=== PATIENT | male | born 1960 | race American Indian/Alaskan Native ===

== ENCOUNTER 2017-01-27 12:52 | Outpatient (CLI) | payer MEDICAID ==
[2017-01-27 14:03] LABS: Hematocrit 42.1 % (35.5-45.6); Hemoglobin 13.2 gm/dl (11.8-15.2); Mean Corpuscular HGB Conc 31 % (32-34); Mean Corpuscular Volume 72 fl (84-94); Platelet Count 232 K/mm3 (140-440); Red Blood Count 5.85 M/mm3 (3.65-5.03); Red Cell Distribution Width 15.2 % (13.2-15.2); White Blood Count 5.9 K/mm3 (4.5-11.0)
[2017-01-27 14:06] LABS: Mean Corpuscular Hemoglobin 23 pg (28-32)
[2017-01-27 14:09] LABS: Albumin 3.9 g/dL (3.9-5); Albumin/Globulin Ratio 0.9 %; BUN/Creatinine Ratio 10.9; Bilirubin,Total 0.3 mg/dL (0.1-1.2); Calcium 9.6 mg/dL (8.4-10.2); Chloride 104.1 mmol/L (98-107); Total Protein 8.3 g/dL (6.3-8.2)
[2017-01-29 09:51] LABS: Myeloperoxidase Antibody <1.0 AI (<1.0)
== END 2017-01-27 12:53 | disposition home or self-care (01) ==
LOC: LAB 12:52
PROVIDERS: ATTEND Internal Medicine
DX: I10 Essential (primary) hypertension (principal); R94.4 Abnormal results of kidney function studies; E78.5 Hyperlipidemia, unspecified; R73.9 Hyperglycemia, unspecified; R31.29 Other microscopic hematuria
CPT/HCPCS: 36415; 80053; 82570; 84156; 85027; 86021; 86038; 86803; 87350; 89050

== ENCOUNTER 2017-12-23 09:56 | Inpatient (IN) | payer MEDICAID ==
[2017-12-23 11:21] LABS: Basophils # (Auto) 0.1 K/mm3 (0.0-0.1); Basophils % (Auto) 1.2 % (0.0-1.8); Eosinophils # (Auto) 0.1 K/mm3 (0.0-0.4); Eosinophils % (Auto) 1.5 % (0.0-4.3); Lymphocytes # (Auto) 1.6 K/mm3 (1.2-5.4); Lymphocytes % (Auto) 22.6 % (13.4-35.0); Mean Corpuscular HGB Conc 31 % (32-34); Monocytes # (Auto) 0.8 K/mm3 (0.0-0.8); Monocytes % (Auto) 11.3 % (0.0-7.3); Platelet Count 253 K/mm3 (140-440); Red Blood Count 8.03 M/mm3 (3.65-5.03); Red Cell Distribution Width 17.9 % (13.2-15.2)
[2017-12-23 11:24] LABS: Hemoglobin 17.6 gm/dl (11.8-15.2); Mean Corpuscular Hemoglobin 22 pg (28-32); Mean Corpuscular Volume 70 fl (84-94)
[2017-12-23 11:27] LABS: INR 0.87 (0.87-1.13); Partial Thromboplastin Time 33.2 Sec. (24.2-36.6)
--- NOTE | 2017-12-23 11:46 | Cat Scan Report ---
CT HEAD WITHOUT CONTRAST: HISTORY: Left leg heaviness, left arm heaviness. TECHNIQUE: Sequential 2.5mm CT images. COMPARISON: none. FINDINGS: There are mild nonspecific chronic white matter changes primarily in the frontal lobes consistent with chronic microvascular ischemic disease. There is an ill-defined area of decreased attenuation in the right brandon on image 18 measuring 1.1 cm. This has the appearance of a chronic ischemic insult. No evidence for hemorrhage, mass or large area of acute ischemia on noncontrast CT. Ventricular size is within normal limits. The sellar bowel is unremarkable. The visualized sinuses and mastoid air cells are well aerated. The calvarium is intact. IMPRESSION: No acute intracranial process identified. If further evaluation is needed MRI could be obtained.
[2017-12-23 11:47] LABS: BUN/Creatinine Ratio 11; Blood Urea Nitrogen 21 mg/dL (9-20); Calcium 9.2 mg/dL (8.4-10.2); Hemolysis Index 26
[2017-12-23] MEDS ORDERED: PLAVIX PO ONE (13:34)
--- NOTE | 2017-12-23 13:41 | Emergency Department Report ---
HPI - General Chief Complaint: Neuro Symptoms/Deficit Time Seen by Provider: 12/23/17 13:16 - [facility] HPI: Room 6 The patient is a 57-year-old male presenting with a chief complaint of left- sided weakness. The patient states his symptoms began 3 days ago numbness and weakness of his left arm and left leg. Patient denies dysarthria or dysphagia. The patient states he was told he had a stroke approximately 8 months ago but did not have any residual deficits. Location: [See above] Duration: Constant 3 days Quality: Numbness, weakness Severity: Moderate Modifying factors: [see above] Context: [see above] Mode of transportation: [not driving] ED Past Medical Hx - Past Medical History Previous Medical History?: Yes Hx Hypertension: Yes Hx CVA: Yes - Surgical History Past Surgical History?: No Additional Surgical History: Bilateral hip repair, just of the abdomen. Colostomy with reversal - Family History Family history: no significant - Social History Smoking Status: Never Smoker Substance Use Type: None ED Review of Systems ROS: Stated complaint: NEURO SYMPTOMS Other details as noted in HPI Neurological: weakness, paresthesias Physical Exam - Physical Exam Vital Signs: Vital Signs 12/23/17 12/23/17 12/23/17 10:08 11:51 12:00 Temperature 98.6 F Pulse Rate 108 H 68 89 Respiratory 16 16 12 Rate Blood Pressure 197/128 199/131 O2 Sat by Pulse 97 98 97 Oximetry 12/23/17 12/23/17 12:16 12:35 Temperature Pulse Rate 88 Respiratory 17 18 Rate Blood Pressure 195/138 O2 Sat by Pulse 96 Oximetry Physical Exam: GENERAL: The patient is well-developed well-nourished male lying on stretcher not appearing to be in acute distress. [] HEENT: Normocephalic. Atraumatic. Extraocular motions are intact. Patient has moist mucous membranes. NECK: Supple. Trachea midline CHEST/LUNGS: Clear to auscultation. There is no respiratory distress noted. HEART/CARDIOVASCULAR: Regular. There is no tachycardia. There is no gallop rub or murmur. ABDOMEN: Abdomen is soft, nontender. Patient has normal bowel sounds. There is no abdominal distention. SKIN: There is no rash. There is no edema. There is no diaphoresis. NEURO: The patient is awake, alert, and oriented. The patient is cooperative. Cranial nerves II through XII grossly intact. Slight left pronator drift. Patient able to hold left lower extremity at 30 for 5 second count. The patient has normal speech. Decreased sensation to the left lower extremity MUSCULOSKELETAL: There is no tenderness or deformity. There is no limitation range of motion. There is no evidence of acute injury. NIHSS= 3 LOC a. Alert= 0 Not alert but arousable to minor stimuli=1 Not alert requires repeated or strong stimuli to move= 2 Responds only reflex motor or unresponsive=3 b. asks month and age answers both correctly= 0 answers one correctly= 1 answers neither correctly= 2 Best Gaze normal= 0 abnormal in one or both but forced deviation or total paresis absent= 1 forced deviation or total gaze paresis= 2 Visual no visual loss= 0 partial hemianopia= 1 complete hemianopia= 2 bilateral hemianopia= 3 Facial Palsy normal= 0 minor paralysis= 1 partial paralysis= 2 complete paralysis= 3 Motor Arm no drift= 0 (+)drift before 10 secs but doesnt hit bed= 1 some effort against gravity= 2 no effort against gravity= 3 no movement= 4 Motor leg no drift= 0 drift before 5 secs but doesnt hit bed= 1 drifts to bed before 5 secs= 2 no effort against gravity= 3 no movement= 4 Limb ataxia absent=0 (+)present in one limb= 1 present in two limbs= 2 Sensory normal= 0 (+)mild sensory loss= 1 severe (unaware of being touched)= 2 Best language mild/some loss of fluency= 1 severe= 2 mute= 3 Dysarthria normal= 0 slurs some words= 1 severe/unintelligible= 2 Extinction and Inattention no abnormality= 0 visual, tactile, auditory or personal inattention= 1 profound (doesnt recognize own hand or orients to only one side= 2 ED Course Vital Signs 12/23/17 12/23/17 12/23/17 10:08 11:51 12:00 Temperature 98.6 F Pulse Rate 108 H 68 89 Respiratory 16 16 12 Rate Blood Pressure 197/128 199/131 O2 Sat by Pulse 97 98 97 Oximetry 12/23/17 12/23/17 12:16 12:35 Temperature Pulse Rate 88 Respiratory 17 18 Rate Blood Pressure 195/138 O2 Sat by Pulse 96 Oximetry ED Medical Decision Making - Lab Data Result diagrams: 12/23/17 11:00 12/23/17 11:00 Laboratory Tests 12/23/17 12/23/17 12/23/17 11:00 11:00 11:00 WBC 7.3 RBC 8.03 H Hgb 17.6 H Hct 56.0 H MCV 70 L MCH 22 L MCHC 31 L RDW 17.9 H Plt Count 253 Lymph % (Auto) 22.6 Coal % (Auto) 11.3 H Eos % (Auto) 1.5 Baso % (Auto) 1.2 Lymph # 1.6 Coal # 0.8 Eos # 0.1 Baso # 0.1 Seg Neutrophils % 63.4 Seg Neutrophils # 4.6 PT 12.2 INR 0.87 APTT 33.2 Thrombin Time Sodium 137 Potassium 5.1 H Chloride 98.8 Carbon Dioxide 27 Anion Gap 16 BUN 21 H Creatinine 1.9 H Estimated GFR 44 BUN/Creatinine Ratio 11 Glucose 159 H Calcium 9.2 Troponin T < 0.010 12/23/17 11:00 WBC RBC Hgb Hct MCV MCH MCHC RDW Plt Count Lymph % (Auto) Coal % (Auto) Eos % (Auto) Baso % (Auto) Lymph # Coal # Eos # Baso # Seg Neutrophils % Seg Neutrophils # PT INR APTT Thrombin Time 17.2 Sodium Potassium Chloride Carbon Dioxide Anion Gap BUN Creatinine Estimated GFR BUN/Creatinine Ratio Glucose Calcium Troponin T - EKG Data -: EKG Interpreted by Mi EKG shows normal: sinus rhythm Rate: normal - EKG Data When compared to previous EKG there are: previous EKG unavailable Interpretation: nonspecific ST-T wave larry (T-wave inversion in leads 1, aVL, V6) - Radiology Data Radiology results: report reviewed (CT head), image reviewed (CT head) [facility] [address] [place] [address] Cat Scan Report Signed Patient: WHITLEY ARCHULETA MR#: [id number] : 1960 Acct:[id number] Age/Sex: 57 / M ADM Date: 12/23/17 Loc: ED Attending Dr: Ordering Physician: LUCIA HAQUE MD Date of Service: 12/23/17 Procedure(s): CT head/brain wo con Accession Number(s): [id number] cc: ED MD [place] CT HEAD WITHOUT CONTRAST: HISTORY: Left leg heaviness, left arm heaviness. TECHNIQUE: Sequential 2.5mm CT images. COMPARISON: none. FINDINGS: There are mild nonspecific chronic white matter changes primarily in the frontal lobes consistent with chronic microvascular ischemic disease. There is an ill-defined area of decreased attenuation in the right brandon on image 18 measuring 1.1 cm. This has the appearance of a chronic ischemic insult. No evidence for hemorrhage, mass or large area of acute ischemia on noncontrast CT. Ventricular size is within normal limits. The sellar bowel is unremarkable. The visualized sinuses and mastoid air cells are well aerated. The calvarium is intact. IMPRESSION: No acute intracranial process identified. If further evaluation is needed MRI could be obtained. Transcribed By: TTR Dictated By: SHIRLEY ERNST JR, MD Electronically Authenticated By: SHIRLEY ERNST JR, MD Signed Date/Time: 12/23/178 DD/ 33 TD/TT: 12/23/17 113 - Differential Diagnosis CVA, TIA Critical care attestation.: If time is entered above; I have spent that time in minutes in the direct care of this critically ill patient, excluding procedure time. ED Disposition Clinical Impression: CVA (cerebral vascular accident), Left-sided weakness Disposition: -09 OP ADMIT IP TO THIS HOSP Is pt being admited?: Yes Does the pt Need Aspirin: No (renal insufficiency. Plavix ordered) Condition: Fair Referrals: PRIMARY CARE, [Primary Care Provider] - 3-5 Days Time of Disposition: 13:53 (hospitalist notified (Dr Perez))
--- NOTE | 2017-12-23 19:59 | History and Physical Report ---
History of Present Illness Date of examination: 12/23/17 Date of admission: 12/23/17 13:54 Chief complaint: CC l sided weakness for 3 days History of present illness: [place]: The patient is a 57-year-old male presenting with a chief complaint of left- sided weakness. The patient states his symptoms began 3 days ago numbness and weakness of his left arm and left leg. Patient denies dysarthria or dysphagia. The patient states he was told he had a stroke approximately 8 months ago but did not have any residual deficits. Past Medical History Previous Medical History?: Yes Hx Hypertension: Yes Hx CVA: Yes Surgical History Past Surgical History?: No Additional Surgical History: Bilateral hip repair,. Colostomy with reversal Family History Family history: no significant Social History Smoking Status: Never Smoker Substance Use Type: None Review of Systems ROS: Stated complaint: NEURO SYMPTOMS Other details as noted in HPI Neurological: weakness, paresthesias 14 point review of systems done Medications and Allergies Allergies Allergy/AdvReac Type Severity Reaction Status Date / Time No Known Allergies Allergy Unverified 12/23/17 10:22 Home Medications Medication Instructions Recorded Confirmed Last Taken Type Amlodipine Besylate [Norvasc] 10 mg PO QDAY 12/23/17 12/23/17 Unknown History AtorvaSTATin [Lipitor] 40 mg PO QHS 12/23/17 12/23/17 Unknown History Carvedilol [Coreg] 12.5 mg PO BID 12/23/17 12/23/17 Unknown History Doxazosin Mesylate [Cardura] 2 mg PO QPM 12/23/17 12/23/17 Unknown History Lisinopril [Zestril] 40 mg PO QDAY 12/23/17 12/23/17 Unknown History cloNIDine [Catapres] 0.1 mg PO BID 12/23/17 12/23/17 Unknown History Exam - Constitutional Vitals: Temp Pulse Resp BP Pulse Ox 98.0 F 107 H 16 185/132 94 12/23/17 19:55 12/23/17 19:55 12/23/17 19:55 12/23/17 19:55 12/23/17 19:55 General appearance: Present: no acute distress, well-nourished - EENT Eyes: Present: PERRL ENT: hearing intact, clear oral mucosa - Neck Neck: Present: supple, normal ROM - Respiratory Respiratory effort: normal Respiratory: bilateral: CTA - Cardiovascular Heart rate: 80 Rhythm: regular Heart Sounds: Present: S1 & S2. Absent: rub, click - Extremities Extremities: no ischemia, pulses intact, pulses symmetrical, No edema Peripheral Pulses: within normal limits - Abdominal General gastrointestinal: Present: soft, non-tender, non-distended, normal bowel sounds Male genitourinary: Present: normal - Rectal Rectal Exam: deferred - Integumentary Integumentary: Present: clear, warm, dry - Musculoskeletal Musculoskeletal: strength equal bilaterally, left sided weakness (3/5 power both upper and lower extremities Reflexes brisk) - Psychiatric Psychiatric: appropriate mood/affect, intact judgment & insight, memory intact, cooperative - Neurologic Neurologic: CNII-XII intact, focal deficits, moves all extremities Results - Labs CBC & Chem 7: 12/24/17 04:55 12/23/17 11:00 Labs: Laboratory Last Values WBC 7.3 K/mm3 (4.5-11.0) 12/23/17 11:00 RBC 8.03 M/mm3 (3.65-5.03) H 12/23/17 11:00 Hgb 17.6 gm/dl (11.8-15.2) H 12/23/17 11:00 Hct 56.0 % (35.5-45.6) H 12/23/17 11:00 MCV 70 fl (84-94) L 12/23/17 11:00 MCH 22 pg (28-32) L 12/23/17 11:00 MCHC 31 % (32-34) L 12/23/17 11:00 RDW 17.9 % (13.2-15.2) H 12/23/17 11:00 Plt Count 253 K/mm3 (140-440) 12/23/17 11:00 Lymph % (Auto) 22.6 % (13.4-35.0) 12/23/17 11:00 [place] % (Auto) 11.3 % (0.0-7.3) H 12/23/17 11:00 Eos % (Auto) 1.5 % (0.0-4.3) 12/23/17 11:00 Baso % (Auto) 1.2 % (0.0-1.8) 12/23/17 11:00 Lymph # 1.6 K/mm3 (1.2-5.4) 12/23/17 11:00 [place] # 0.8 K/mm3 (0.0-0.8) 12/23/17 11:00 Eos # 0.1 K/mm3 (0.0-0.4) 12/23/17 11:00 Baso # 0.1 K/mm3 (0.0-0.1) 12/23/17 11:00 Seg Neutrophils % 63.4 % (40.0-70.0) 12/23/17 11:00 Seg Neutrophils # 4.6 K/mm3 (1.8-7.7) 12/23/17 11:00 PT 12.2 Sec. (12.2-14.9) 12/23/17 11:00 INR 0.87 (0.87-1.13) 12/23/17 11:00 APTT 33.2 Sec. (24.2-36.6) 12/23/17 11:00 Thrombin Time 17.2 Sec. (15.1-19.6) 12/23/17 11:00 Sodium 137 mmol/L (137-145) 12/23/17 11:00 Potassium 5.1 mmol/L (3.6-5.0) H 12/23/17 11:00 Chloride 98.8 mmol/L (98-107) 12/23/17 11:00 Carbon Dioxide 27 mmol/L (22-30) 12/23/17 11:00 Anion Gap 16 mmol/L 12/23/17 11:00 BUN 21 mg/dL (9-20) H 12/23/17 11:00 Creatinine 1.9 mg/dL (0.8-1.5) H 12/23/17 11:00 Estimated GFR 44 ml/min 12/23/17 11:00 BUN/Creatinine Ratio 11 % 12/23/17 11:00 Glucose 159 mg/dL (75-100) H 12/23/17 11:00 Calcium 9.2 mg/dL (8.4-10.2) 12/23/17 11:00 Troponin T < 0.010 ng/mL (0.00-0.029) 12/23/17 11:00 - Imaging and Cardiology EKG: report reviewed CT Scan - head: report reviewed (NAF) Assessment and Plan Advance Directives: Yes (FC) VTE prophylaxis?: Chemical Plan of care discussed with patient/family: Yes - Patient Problems (1) CVA (cerebral vascular accident) Current Visit: Yes Status: Acute Qualifiers: CVA mechanism: thrombosis Precerebral and cerebral artery: middle cerebral artery Laterality of affected vessel: right Qualified Code(s): I63.311 - Cerebral infarction due to thrombosis of right middle cerebral artery Plan to address problem: CVA work up Neuro consult requested Initiated on Plavix (2) HTN (hypertension) Current Visit: Yes Status: Chronic Qualifiers: Hypertension type: essential hypertension Qualified Code(s): I10 - Essential (primary) hypertension Plan to address problem: Cont antihypertensives (3) HLD (hyperlipidemia) Current Visit: Yes Status: Chronic Qualifiers: Hyperlipidemia type: mixed hyperlipidemia Qualified Code(s): E78.2 - Mixed hyperlipidemia Plan to address problem: Cont statins (4) DICKSON (acute kidney injury) Current Visit: Yes Status: Acute Plan to address problem: IV fluids for now (5) Hyperkalemia Current Visit: Yes Status: Acute Plan to address problem: Mild IV fluids for now (6) DVT prophylaxis Current Visit: Yes Status: Acute Plan to address problem: on Heparin/Lovenox
[2017-12-23] MEDS ORDERED: DILAUDID IV PRN (20:01)
[2017-12-23] MEDS ORDERED: MORPHINE IV PRN (20:01)
[2017-12-23] MEDS ORDERED: SODIUM CHLORIDE FLUSH SYRINGE 10 ML IV PRN (20:01)
[2017-12-23] MEDS ORDERED: TYLENOL PO PRN (20:01)
[2017-12-23] MEDS ORDERED: ZOFRAN IV PRN (20:01)
[2017-12-23] MEDS ORDERED: APRESOLINE IV PRN ×2 (20:07→22:42)
[2017-12-23] MEDS ORDERED: SODIUM CHLORIDE FLUSH SYRINGE 10 ML INJ PRN (20:07)
[2017-12-23] MEDS: NORVASC PO SCH (20:38)
[2017-12-23] MEDS ORDERED: NACL 0.9% 1000 ML 1,000 ML IV SCH (21:00)
[2017-12-23] MEDS ORDERED: NORMODYNE IV ONE (22:39)
[2017-12-23] MEDS: SODIUM CHLORIDE FLUSH SYRINGE 10 ML IV SCH (22:48)
[2017-12-24] MEDS: LOVENOX SUB-Q SCH ×2 (00:52→12:32)
[2017-12-24] MEDS: ZESTRIL PO SCH ×2 (00:52→12:33)
[2017-12-24] MEDS: PEPCID PO SCH ×3 (00:53→21:00)
[2017-12-24] MEDS: COREG PO SCH ×3 (00:53→21:01)
[2017-12-24] MEDS: CATAPRES PO SCH ×3 (00:53→21:01)
[2017-12-24] MEDS: PERCOCET 5/325 PO PRN ×3 (00:57→21:04)
[2017-12-24 06:29] LABS: Basophils # (Auto) 0.1 K/mm3 (0.0-0.1); Basophils % (Auto) 1.2 % (0.0-1.8); Eosinophils # (Auto) 0.1 K/mm3 (0.0-0.4); Eosinophils % (Auto) 0.9 % (0.0-4.3); Hematocrit 50.2 % (35.5-45.6); Hemoglobin 16.1 gm/dl (11.8-15.2); Lymphocytes # (Auto) 1.6 K/mm3 (1.2-5.4); Lymphocytes % (Auto) 21.5 % (13.4-35.0); Mean Corpuscular HGB Conc 32 % (32-34); Monocytes # (Auto) 0.9 K/mm3 (0.0-0.8); Monocytes % (Auto) 12.2 % (0.0-7.3); Platelet Count 243 K/mm3 (140-440); Red Blood Count 7.31 M/mm3 (3.65-5.03)
[2017-12-24 06:34] LABS: Mean Corpuscular Hemoglobin 22 pg (28-32); Mean Corpuscular Volume 69 fl (84-94)
[2017-12-24] MEDS ORDERED: NACL 0.9% 1000 ML 1,000 ML IV SCH (07:00)
[2017-12-24 07:05] LABS: Albumin 3.2 g/dL (3.9-5); Calcium 9.1 mg/dL (8.4-10.2); Chol/HDL Ratio 6.47 %
--- NOTE | 2017-12-24 08:16 | History and Physical Report ---
History of Present Illness Date of examination: 12/24/17 Date of admission: 12/23/17 13:54 Chief complaint: FOCUSED NEUROLOGY CONSULT NOTE CC: I am asked to see this 58 AA M for stroke. HPI: Hx from chart and from patient. Eight years ago he awoke with left leg weakness and "numbness" (a term patients frequently use for weakness). there was no face or arm involvement. He did not go to an ED. All sx resolved in 2 to 3 days. He was able to walk without falling but not normally for those 2 - 3 days. Then, some four days ago on a Friday morning, he awoke with similar sx only this time his left arm was not working properly. Again there was no facial involvment, again he could walk but not well. Finally after four days he came to the ED. BP was 199/131, he was found to have mild weakness of the left arm and leg, NIHSS = 3, HR 122, mild DICKSON. A head CT (images reviewed) shows a remote right pontine patchy lacunar infarct, naught else. He feels ok this am. ROS: no headache, double vision, speech or language dysfunction, LOC, falling, no right sided sx, dizziness vertigo. An 11 point ROS is negative. FH/SH not re-reviewed. 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 MEDS/ALLERGIES - see chart PE: HEENT - nl NECK supple no bruits COR no m rubs LUNGS clear to A EXTREM - no edema no trauma NEURO MS - alert, oriented x3 with clear and fluent speech without errors, follows commands quickly and acurately, recent and remote memory in tact CN II - 12 - nl, full eom no nystagmus, pupils both 4 mm diam and react to bright light MOT - sl drift downward of L arm, no weakness to resistance testin, no weakness anywhere else, all extrem 5/5 prox and distally to resistance testing. SENS - decreased to light touch over left leg and arm, face normal CEREB - fnf nl on right, clumbsy on left DTRs - uniformly absent, both great toes downgoing to plantar stim GAIT - not tested due to fall risk DX IMP: 1. Acute right pontine infarct (posterior circulation) with right arm weakness and right arm and leg sensory deficit. 2. Remote right pontine infarct eight years ago by hx 3. HTN not controlled 4. DICKSON mild ' RECC: 1. Agree with your w/u and mgt plan re MRI head, MRA head, C-doppler, and Echo, all studies currently pending. 2. Agree re antiplt Rx Lashon Schwartz MD Medications and Allergies Allergies Allergy/AdvReac Type Severity Reaction Status Date / Time No Known Allergies Allergy Unverified 12/23/17 10:22 Home Medications Medication Instructions Recorded Confirmed Last Taken Type Amlodipine Besylate [Norvasc] 10 mg PO QDAY 12/23/17 12/23/17 Unknown History AtorvaSTATin [Lipitor] 40 mg PO QHS 12/23/17 12/23/17 Unknown History Carvedilol [Coreg] 12.5 mg PO BID 12/23/17 12/23/17 Unknown History Doxazosin Mesylate [Cardura] 2 mg PO QPM 12/23/17 12/23/17 Unknown History Lisinopril [Zestril] 40 mg PO QDAY 12/23/17 12/23/17 Unknown History cloNIDine [Catapres] 0.1 mg PO BID 12/23/17 12/23/17 Unknown History Active Meds: Active Medications Acetaminophen (Tylenol) 650 mg PO Q4H PRN PRN Reason: Pain MILD(1-3)/Fever >100.5/MCGHEE Amlodipine Besylate (Norvasc) 10 mg PO QDAY [facility] Last Admin: 12/23/17 20:38 Dose: 10 mg Atorvastatin Calcium (Lipitor) 40 mg PO QHS [facility] Last Admin: 12/24/17 00:52 Dose: 40 mg Carvedilol (Coreg) 12.5 mg PO BID [facility] Last Admin: 12/24/17 00:53 Dose: 12.5 mg Clonidine HCl (Catapres) 0.1 mg PO BID [facility] Last Admin: 12/24/17 00:53 Dose: 0.1 mg Clopidogrel Bisulfate (Plavix) 75 mg PO QDAY [facility] Doxazosin Mesylate (Cardura) 2 mg PO QPM [facility] Enoxaparin Sodium (Lovenox) 40 mg SUB-Q QDAY [facility] Last Admin: 12/24/17 00:52 Dose: 40 mg Famotidine (Pepcid) 20 mg PO BID [facility] Last Admin: 12/24/17 00:53 Dose: 20 mg Hydralazine HCl (Apresoline) 10 mg IV Q4HR PRN PRN Reason: Keep SBP between 160-185 mm Hg Last Admin: 12/23/17 23:05 Dose: 10 mg Hydromorphone HCl (Dilaudid) 0.5 mg IV Q3H PRN PRN Reason: Pain , Severe (7-10) Sodium Chloride (Nacl 0.9% 1000 Ml) 1,000 mls @ 75 mls/hr IV DIRECT JOSIE Sodium Chloride (Nacl 0.9% 1000 Ml) 1,000 mls @ 100 mls/hr IV DIRECT JOSIE Stop: 12/25/17 23:59 Lisinopril (Zestril) 40 mg PO QDAY JOSIE Last Admin: 12/24/17 00:52 Dose: 40 mg Morphine Sulfate (Morphine) 2 mg IV Q4H PRN PRN Reason: Pain, Moderate (4-6) Ondansetron HCl (Zofran) 4 mg IV Q8H PRN PRN Reason: Nausea And Vomiting Oxycodone/Acetaminophen (Percocet 5/325) 1 tab PO Q6H PRN PRN Reason: Pain, Moderate (4-6) Last Admin: 12/24/17 00:57 Dose: 1 tab Sodium Chloride (Sodium Chloride Flush Syringe 10 Ml) 10 ml IV BID [facility] Last Admin: 12/23/17 22:48 Dose: 10 ml Sodium Chloride (Sodium Chloride Flush Syringe 10 Ml) 10 ml IV PRN PRN PRN Reason: LINE FLUSH Zolpidem Tartrate (Ambien) 5 mg PO QHS PRN PRN Reason: Insomnia Physical Examination - Vital Signs Vital Signs: Vital Signs Temp Pulse Resp BP Pulse Ox 98.6 F 108 H 16 197/128 97 12/23/17 10:08 12/23/17 10:08 12/23/17 10:08 12/23/17 10:08 12/23/17 10:08 Results - Laboratory Findings CBC and BMP: 12/24/17 04:55 12/24/17 04:55 Abnormal Lab Findings: Abnormal Labs 12/23/17 12/23/17 12/23/17 11:00 11:00 20:19 RBC 8.03 H Hgb 17.6 H Hct 56.0 H MCV 70 L MCH 22 L MCHC 31 L RDW 17.9 H [place] % (Auto) 11.3 H [place] # Potassium 5.1 H BUN 21 H Creatinine 1.9 H Glucose 159 H POC Glucose Hemoglobin A1c 7.3 H Albumin Triglycerides Cholesterol HDL Cholesterol 12/24/17 12/24/17 12/24/17 00:31 04:55 04:55 RBC 7.31 H Hgb 16.1 H Hct 50.2 H MCV 69 L MCH 22 L MCHC RDW 17.0 H [place] % (Auto) 12.2 H [place] # 0.9 H Potassium BUN 21 H Creatinine 1.9 H Glucose 145 H POC Glucose 120 H Hemoglobin A1c Albumin 3.2 L Triglycerides 209 H Cholesterol 246 H HDL Cholesterol 38 L 12/24/17 06:35 RBC Hgb Hct MCV MCH MCHC RDW [place] % (Auto) [place] # Potassium BUN Creatinine Glucose POC Glucose 140 H Hemoglobin A1c Albumin Triglycerides Cholesterol HDL Cholesterol
[2017-12-24 10:15] LABS: Calcium 9.3 mg/dL (8.4-10.2)
[2017-12-24] MEDS: PLAVIX PO SCH (12:32)
[2017-12-24] MEDS: SODIUM CHLORIDE FLUSH SYRINGE 10 ML IV SCH ×2 (12:33→21:00)
[2017-12-24] MEDS: NORVASC PO SCH (12:33)
--- NOTE | 2017-12-24 12:46 | Magnetic Resonance Report ---
MRI BRAIN WITHOUT CONTRAST INDICATION: Stroke. COMPARISON: Head CT from yesterday. FINDINGS: Noncontrast multiplanar and multisequence MRI of the brain demonstrates an approximately 1.7 cm restricted diffusion in the brandon on the right with a small chronic infarct in its middle not excluded. No other acute infarct, hemorrhage, mass effect or midline shift. No abnormal extra-axial masses or fluid collections. Age appropriate, symmetric ventricles and sulci. Mild to moderate periventricular and numerous white matter FLAIR and T2 weighted hyperintensities. Normal major intracranial vascular flow voids. Normal posterior fossa with preserved seventh and eighth nerve complexes and basilar cisterns. Left cataract surgery. Approximately 1.7 cm left maxillary sinus mucosal thickening/retention cyst inferiorly. Clear remainder imaged paranasal sinuses and mastoid air cells. Normal midline structures without evidence of Chiari malformation. CONCLUSION: A 1.7 cm acute nonhemorrhagic infarct in the brandon on the right in this patient with age appropriate atrophy, microvascular changes and few other findings, as described. Thank you for the opportunity to participate in this patient's care.
--- NOTE | 2017-12-24 12:48 | Magnetic Resonance Report ---
MRA HEAD WITHOUT CONTRAST INDICATION: Stroke. COMPARISON: None similar. FINDINGS: MRA of the head performed without intravenous contrast and demonstrates no evidence of flow-limiting stenosis, occlusion or vascular malformation. Right vertebral artery dominant. Please note that detection of aneurysms less than 5 mm is limited on this exam. CONCLUSION: Normal study of the [place]. Thank you for the opportunity to participate in this patient's care.
--- NOTE | 2017-12-24 17:13 | Progress Note ---
Assessment and Plan Assessment and plan: Assessment HTN, essen, chronic Acute CVA Acute ? on CKD stage III due to long standing HTN Medication noncompliance Morbid Obesity 2/2 excess calories Mixed Hyperlipidemia Fall risk h/o CVA with left sided weakness Chronic pain syndrome Full code status Plan renal Ultrasound avoid nephrotoxic agents am labs continue BP meds Hold Lisinopril for now obtain Renal Ultrasound continue IVF obtain renal consult further pt mgt per hospital course d/w pt in details questions were answered to the best of my ability further pt mgt per hospital course More than 35 mins spent of which more than 50% of the time was spent in patient counseling and coordination of care Total Time Spent with Patient (Minutes): More than 35 mins spent History Interval history: Mr Fonseca is a pleasant 57 y/o male admitted with Acute CVA. Pt has been eval by the Neuro specialist. Inputs and reccs greatly appreciated. Pt seen and exam , feels better but admitted to Noncompliance with his BP meds. Denies CP/SOB/N/V. MRI brain/ MRA head and neck, specialist's documentations reviewed. Hospitalist Physical - Constitutional Vitals: Temp Pulse Resp BP Pulse Ox 97.4 F L 74 16 160/93 99 12/24/17 08:06 12/24/17 08:06 12/24/17 08:06 12/24/17 08:06 12/24/17 08:06 General appearance: Present: no acute distress, well-nourished, obese - EENT Eyes: Present: PERRL, EOM intact ENT: hearing intact, clear oral mucosa, dentition normal - Neck Neck: Present: supple, normal ROM - Respiratory Respiratory: bilateral: CTA, negative: rales, rhonchi - Cardiovascular Rhythm: regular Heart Sounds: Present: S1 & S2 - Extremities Extremities: no ischemia, pulses intact, pulses symmetrical, normal temperature Extremity abnormal: other (left LLE with slight muscle atrophy compared to right due to old CVA) Peripheral Pulses: within normal limits - Abdominal General gastrointestinal: soft, non-tender, non-distended, normal bowel sounds - Integumentary Integumentary: Present: clear, warm, dry - Psychiatric Psychiatric: appropriate mood/affect, intact judgment & insight, cooperative - Neurologic Neurologic: CNII-XII intact, focal deficits - Allied Health Allied health notes reviewed: nursing, PT, social work Results - Labs CBC & Chem 7: 12/24/17 04:55 12/24/17 09:26 Labs: Laboratory Last Values WBC 7.6 K/mm3 (4.5-11.0) 12/24/17 04:55 RBC 7.31 M/mm3 (3.65-5.03) H 12/24/17 04:55 Hgb 16.1 gm/dl (11.8-15.2) H 12/24/17 04:55 Hct 50.2 % (35.5-45.6) H 12/24/17 04:55 MCV 69 fl (84-94) L 12/24/17 04:55 MCH 22 pg (28-32) L 12/24/17 04:55 MCHC 32 % (32-34) 12/24/17 04:55 RDW 17.0 % (13.2-15.2) H 12/24/17 04:55 Plt Count 243 K/mm3 (140-440) 12/24/17 04:55 Lymph % (Auto) 21.5 % (13.4-35.0) 12/24/17 04:55 [place] % (Auto) 12.2 % (0.0-7.3) H 12/24/17 04:55 Eos % (Auto) 0.9 % (0.0-4.3) 12/24/17 04:55 Baso % (Auto) 1.2 % (0.0-1.8) 12/24/17 04:55 Lymph # 1.6 K/mm3 (1.2-5.4) 12/24/17 04:55 [place] # 0.9 K/mm3 (0.0-0.8) H 12/24/17 04:55 Eos # 0.1 K/mm3 (0.0-0.4) 12/24/17 04:55 Baso # 0.1 K/mm3 (0.0-0.1) 12/24/17 04:55 Seg Neutrophils % 64.2 % (40.0-70.0) 12/24/17 04:55 Seg Neutrophils # 4.9 K/mm3 (1.8-7.7) 12/24/17 04:55 PT 12.2 Sec. (12.2-14.9) 12/23/17 11:00 INR 0.87 (0.87-1.13) 12/23/17 11:00 APTT 33.2 Sec. (24.2-36.6) 12/23/17 11:00 Thrombin Time 17.2 Sec. (15.1-19.6) 12/23/17 11:00 Sodium 136 mmol/L (137-145) L 12/24/17 09:26 Potassium 4.8 mmol/L (3.6-5.0) 12/24/17 09:26 Chloride 97.7 mmol/L (98-107) L 12/24/17 09:26 Carbon Dioxide 28 mmol/L (22-30) 12/24/17 09:26 Anion Gap 15 mmol/L 12/24/17 09:26 BUN 21 mg/dL (9-20) H 12/24/17 09:26 Creatinine 1.9 mg/dL (0.8-1.5) H 12/24/17 09:26 Estimated GFR 44 ml/min 12/24/17 09:26 BUN/Creatinine Ratio 11 % 12/24/17 09:26 Glucose 176 mg/dL (75-100) H 12/24/17 09:26 POC Glucose 140 (70-105) H 12/24/17 06:35 Hemoglobin A1c 7.3 % (4-6) H 12/23/17 20:19 Calcium 9.3 mg/dL (8.4-10.2) 12/24/17 09:26 Total Bilirubin 0.40 mg/dL (0.1-1.2) 12/24/17 04:55 AST 15 units/L (5-40) 12/24/17 04:55 ALT 14 units/L (7-56) 12/24/17 04:55 Alkaline Phosphatase 98 units/L (35-129) 12/24/17 04:55 Troponin T < 0.010 ng/mL (0.00-0.029) 12/23/17 11:00 Total Protein 7.6 g/dL (6.3-8.2) 12/24/17 04:55 Albumin 3.2 g/dL (3.9-5) L 12/24/17 04:55 Albumin/Globulin Ratio 0.7 % 12/24/17 04:55 Triglycerides 209 mg/dL (2-149) H 12/24/17 04:55 Cholesterol 246 mg/dL (50-199) H 12/24/17 04:55 LDL Cholesterol Direct 182 mg/dL (50-130) H 12/24/17 04:55 HDL Cholesterol 38 mg/dL (40-59) L 12/24/17 04:55 Cholesterol/HDL Ratio 6.47 % 12/24/17 04:55 - Imaging and Cardiology EKG: report reviewed Chest x-ray: report reviewed CT Scan - head: report reviewed MRI - head: report reviewed
[2017-12-24] MEDS ORDERED: NON-FORMULARY (Doxazosin Mesylate [Cardura] 2 MG) PO SCH (18:00)
[2017-12-24] MEDS: CARDURA PO SCH (18:38)
--- NOTE | 2017-12-25 08:16 | Progress Note ---
Assessment and Plan HTN, essen, chronic Acute CVA Acute ? on CKD stage III due to long standing HTN Medication noncompliance Morbid Obesity 2/2 excess calories Mixed Hyperlipidemia Fall risk h/o CVA with left sided weakness Chronic pain syndrome Full code status Plan renal Ultrasound avoid nephrotoxic agents am labs continue BP meds Hold Lisinopril for now obtain Renal Ultrasound continue IVF obtain renal consult further pt mgt per hospital course d/w pt in details questions were answered to the best of my ability further pt mgt per hospital course Subjective Date of service: 12/25/17 Objective - Constitutional Vitals: Vital Signs - 12hr 12/24/17 12/24/17 12/24/17 20:24 21:01 21:04 Temperature 97.6 F Pulse Rate 79 75 Respiratory 18 20 Rate Blood Pressure 170/91 Blood Pressure 170/91 [Left] O2 Sat by Pulse 98 Oximetry 12/24/17 12/24/17 12/25/17 22:00 22:04 00:53 Temperature 98.2 F Pulse Rate 72 Respiratory 18 18 20 Rate Blood Pressure Blood Pressure 143/93 [Left] O2 Sat by Pulse 93 Oximetry 12/25/17 12/25/17 01:00 05:19 Temperature 97.6 F Pulse Rate 74 72 Respiratory 18 Rate Blood Pressure Blood Pressure 123/87 [Left] O2 Sat by Pulse 97 Oximetry - Labs CBC & Chem 7: 12/24/17 04:55 12/24/17 09:26 Labs: Abnormal lab results 12/24/17 12/24/17 12/24/17 Range/Units 04:55 09:26 12:25 Sodium 136 L (137-145) mmol/L Chloride 97.7 L (98-107) mmol/L BUN 21 H (9-20) mg/dL Creatinine 1.9 H (0.8-1.5) mg/dL Glucose 176 H (75-100) mg/dL POC Glucose 124 H (70-105) LDL Cholesterol Direct 182 H (50-130) mg/dL 12/25/17 Range/Units 05:50 Sodium (137-145) mmol/L Chloride (98-107) mmol/L BUN (9-20) mg/dL Creatinine (0.8-1.5) mg/dL Glucose (75-100) mg/dL POC Glucose 119 H (70-105) LDL Cholesterol Direct (50-130) mg/dL
--- NOTE | 2017-12-25 11:41 | Progress Note ---
Subjective Date of service: 12/25/17 Principal diagnosis: stroke Interval history: NEURO PROGRESS NOTE MRI brain shows days old Right pontine infarct MRA brain - nl C-doppler - no hemodynam sig stensis R or L ICA or CCA, anterograde flow in both vertebrals RECC: 1. We await cardiac echo report to complete neuro eval 2. continue antiplatelet Rx for now 3. Call as needed. Lashon Schwartz MD Objective - Vital Sign Vital Signs - 12hr 12/24/17 12/25/17 12/25/17 23:42 00:53 01:00 Temperature 98.2 F Pulse Rate 70 72 74 Respiratory 20 Rate Blood Pressure 143/93 Blood Pressure 143/93 [Left] O2 Sat by Pulse 94 93 Oximetry 12/25/17 12/25/17 12/25/17 04:29 05:19 07:56 Temperature 97.6 F 98.2 F Pulse Rate 72 72 67 Respiratory 18 20 Rate Blood Pressure 123/87 149/96 Blood Pressure 123/87 [Left] O2 Sat by Pulse 96 97 93 Oximetry - Laboratory Findings CBC and BMP: 12/24/17 04:55 12/24/17 09:26 Abnormal Lab Findings: Abnormal Labs 12/23/17 12/23/17 12/23/17 11:00 11:00 20:19 RBC 8.03 H Hgb 17.6 H Hct 56.0 H MCV 70 L MCH 22 L MCHC 31 L RDW 17.9 H [place] % (Auto) 11.3 H [place] # Sodium Potassium 5.1 H Chloride BUN 21 H Creatinine 1.9 H Glucose 159 H POC Glucose Hemoglobin A1c 7.3 H Albumin Triglycerides Cholesterol LDL Cholesterol Direct HDL Cholesterol 12/24/17 12/24/17 12/24/17 00:31 04:55 04:55 RBC 7.31 H Hgb 16.1 H Hct 50.2 H MCV 69 L MCH 22 L MCHC RDW 17.0 H [place] % (Auto) 12.2 H [place] # 0.9 H Sodium Potassium Chloride BUN 21 H Creatinine 1.9 H Glucose 145 H POC Glucose 120 H Hemoglobin A1c Albumin 3.2 L Triglycerides 209 H Cholesterol 246 H LDL Cholesterol Direct 182 H HDL Cholesterol 38 L 12/24/17 12/24/17 12/24/17 06:35 09:26 12:25 RBC Hgb Hct MCV MCH MCHC RDW [place] % (Auto) [place] # Sodium 136 L Potassium Chloride 97.7 L BUN 21 H Creatinine 1.9 H Glucose 176 H POC Glucose 140 H 124 H Hemoglobin A1c Albumin Triglycerides Cholesterol LDL Cholesterol Direct HDL Cholesterol 12/25/17 05:50 RBC Hgb Hct MCV MCH MCHC RDW [place] % (Auto) [place] # Sodium Potassium Chloride BUN Creatinine Glucose POC Glucose 119 H Hemoglobin A1c Albumin Triglycerides Cholesterol LDL Cholesterol Direct HDL Cholesterol
[2017-12-25] MEDS: PEPCID PO SCH ×2 (12:22→21:48)
[2017-12-25] MEDS: PLAVIX PO SCH (12:22)
[2017-12-25] MEDS: CATAPRES PO SCH ×2 (12:22→21:48)
[2017-12-25] MEDS: PERCOCET 5/325 PO PRN ×2 (12:23→17:59)
[2017-12-25] MEDS: COREG PO SCH ×2 (12:23→21:48)
[2017-12-25] MEDS: NORVASC PO SCH (12:23)
[2017-12-25] MEDS: LOVENOX SUB-Q SCH (12:24)
[2017-12-25] MEDS: SODIUM CHLORIDE FLUSH SYRINGE 10 ML IV SCH ×2 (12:27→21:51)
[2017-12-25] MEDS: CARDURA PO SCH (17:59)
--- NOTE | 2017-12-26 07:51 | Progress Note ---
Assessment and Plan Acute CVA Acute ? 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 HTN, essen, chronic Medication noncompliance Morbid Obesity 2/2 excess calories Mixed Hyperlipidemia Fall risk h/o CVA with left sided weakness Chronic pain syndrome Full code status Plan Continue with ASA, stain, and optimize BP control PT/OT/ST AM lab result still pending avoid nephrotoxic agents continue BP meds Hold Lisinopril for now b/c ARF obtain Renal Ultrasound continue IVF Consulted nephrology d/w pt in details further pt mgt per hospital course DVT PPx with lovenox Subjective Date of service: 12/26/17 Principal diagnosis: stroke Interval history: Pt seen and examined. still weak on the left side Objective - Constitutional Vitals: Vital Signs - 12hr 12/25/17 12/25/17 12/25/17 19:47 20:44 23:32 Temperature 97.5 F L Pulse Rate 78 82 Respiratory 20 20 Rate Blood Pressure 150/97 [Left] O2 Sat by Pulse 95 Oximetry 12/26/17 12/26/17 00:27 04:52 Temperature 97.6 F 97.4 F L Pulse Rate 80 64 Respiratory 20 20 Rate Blood Pressure 143/108 121/71 [Left] O2 Sat by Pulse 93 97 Oximetry General appearance: Present: no acute distress, well-nourished - EENT Eyes: PERRL, EOM intact - Neck Neck: supple, normal ROM - Respiratory Respiratory effort: normal Respiratory: bilateral: CTA - Cardiovascular Rhythm: regular Heart Sounds: Present: S1 & S2. Absent: gallop, rub Extremities: pulses intact, No edema, normal color, Full ROM - Gastrointestinal General gastrointestinal: Present: soft, non-tender, non-distended, normal bowel sounds - Integumentary Integumentary: clear, warm, dry - Musculoskeletal Musculoskeletal: 1, strength equal bilaterally - Neurologic Neurologic: moves all extremities - Psychiatric Psychiatric: memory intact, appropriate mood/affect, intact judgment & insight - Labs CBC & Chem 7: 12/27/17 07:15 12/27/17 07:15 Labs: Abnormal lab results 12/25/17 12/26/17 12/26/17 Range/Units 21:25 01:30 05:02 POC Glucose 125 H 108 H 120 H (70-105)
[2017-12-26 08:24] LABS: Basophils # (Auto) 0.1 K/mm3 (0.0-0.1); Basophils % (Auto) 1.3 % (0.0-1.8); Eosinophils # (Auto) 0.1 K/mm3 (0.0-0.4); Eosinophils % (Auto) 2.7 % (0.0-4.3); Hematocrit 51.2 % (35.5-45.6); Hemoglobin 16.1 gm/dl (11.8-15.2); Lymphocytes # (Auto) 1.6 K/mm3 (1.2-5.4); Lymphocytes % (Auto) 28.6 % (13.4-35.0); Mean Corpuscular HGB Conc 31 % (32-34); Mean Corpuscular Volume 70 fl (84-94); Monocytes # (Auto) 0.6 K/mm3 (0.0-0.8); Monocytes % (Auto) 11.4 % (0.0-7.3); Platelet Count 232 K/mm3 (140-440); Red Blood Count 7.31 M/mm3 (3.65-5.03); Red Cell Distribution Width 17.2 % (13.2-15.2)
[2017-12-26 08:26] LABS: Mean Corpuscular Hemoglobin 22 pg (28-32)
[2017-12-26 08:49] LABS: Albumin 3.2 g/dL (3.9-5); Calcium 8.7 mg/dL (8.4-10.2)
[2017-12-26] MEDS: LOVENOX SUB-Q SCH (10:22)
[2017-12-26] MEDS: COREG PO SCH ×2 (10:22→21:00)
[2017-12-26] MEDS: PEPCID PO SCH ×2 (10:22→21:00)
[2017-12-26] MEDS: PLAVIX PO SCH (10:22)
[2017-12-26] MEDS: NORVASC PO SCH (10:22)
[2017-12-26] MEDS: CATAPRES PO SCH ×2 (10:22→21:01)
[2017-12-26] MEDS: SODIUM CHLORIDE FLUSH SYRINGE 10 ML IV SCH ×2 (10:23→21:01)
[2017-12-26] MEDS: PERCOCET 5/325 PO PRN ×2 (11:30→17:41)
[2017-12-26] MEDS: CARDURA PO SCH (17:39)
[2017-12-26] MEDS ORDERED: NACL 0.9% 1000 ML 1,000 ML IV SCH (21:00)
[2017-12-26] MEDS: AMBIEN PO PRN (21:01)
[2017-12-27] MEDS: PERCOCET 5/325 PO PRN ×3 (05:19→23:39)
[2017-12-27 07:31] LABS: Basophils % (Auto) 0.1 % (0.0-1.8); Eosinophils # (Auto) 0.1 K/mm3 (0.0-0.4); Eosinophils % (Auto) 2.9 % (0.0-4.3); Lymphocytes # (Auto) 1.4 K/mm3 (1.2-5.4); Lymphocytes % (Auto) 26.8 % (13.4-35.0); Mean Corpuscular HGB Conc 31 % (32-34); Mean Corpuscular Volume 70 fl (84-94); Monocytes # (Auto) 0.7 K/mm3 (0.0-0.8); Platelet Count 247 K/mm3 (140-440); Red Blood Count 6.89 M/mm3 (3.65-5.03); Red Cell Distribution Width 17.2 % (13.2-15.2)
[2017-12-27 07:38] LABS: Hematocrit 48.3 % (35.5-45.6); Mean Corpuscular Hemoglobin 22 pg (28-32)
[2017-12-27 07:52] LABS: Albumin 3.1 g/dL (3.9-5); Calcium 8.7 mg/dL (8.4-10.2)
[2017-12-27] MEDS: NORVASC PO SCH (09:25)
[2017-12-27] MEDS: PEPCID PO SCH ×2 (09:25→22:28)
[2017-12-27] MEDS: COREG PO SCH ×2 (09:25→22:28)
[2017-12-27] MEDS: PLAVIX PO SCH (09:25)
[2017-12-27] MEDS: CATAPRES PO SCH ×2 (09:25→22:28)
[2017-12-27] MEDS: LOVENOX SUB-Q SCH (09:26)
[2017-12-27] MEDS: SODIUM CHLORIDE FLUSH SYRINGE 10 ML IV SCH ×2 (09:26→22:29)
[2017-12-27] MEDS: CARDURA PO SCH (17:14)
[2017-12-27] MEDS: AMBIEN PO PRN (22:28)
[2017-12-28 06:38] LABS: Basophils # (Auto) 0.1 K/mm3 (0.0-0.1); Basophils % (Auto) 0.9 % (0.0-1.8); Eosinophils # (Auto) 0.1 K/mm3 (0.0-0.4); Eosinophils % (Auto) 1.8 % (0.0-4.3); Hematocrit 48.3 % (35.5-45.6); Hemoglobin 15.1 gm/dl (11.8-15.2); Lymphocytes # (Auto) 1.9 K/mm3 (1.2-5.4); Lymphocytes % (Auto) 30.2 % (13.4-35.0); Mean Corpuscular HGB Conc 31 % (32-34); Monocytes # (Auto) 0.9 K/mm3 (0.0-0.8); Monocytes % (Auto) 14.5 % (0.0-7.3); Platelet Count 231 K/mm3 (140-440); Red Blood Count 6.93 M/mm3 (3.65-5.03); Red Cell Distribution Width 17.1 % (13.2-15.2)
[2017-12-28 06:52] LABS: Mean Corpuscular Hemoglobin 22 pg (28-32); Mean Corpuscular Volume 70 fl (84-94)
[2017-12-28 07:08] LABS: Albumin 3.1 g/dL (3.9-5); Calcium 8.9 mg/dL (8.4-10.2)
[2017-12-28] MEDS: CATAPRES PO SCH ×2 (11:22→21:45)
[2017-12-28] MEDS: LOVENOX SUB-Q SCH (11:23)
[2017-12-28] MEDS: NORVASC PO SCH (11:24)
[2017-12-28] MEDS: PEPCID PO SCH ×2 (11:25→21:45)
[2017-12-28] MEDS: PLAVIX PO SCH (11:26)
[2017-12-28] MEDS: SODIUM CHLORIDE FLUSH SYRINGE 10 ML IV SCH ×2 (11:27→21:46)
--- NOTE | 2017-12-28 12:44 | Progress Note ---
Assessment and Plan Acute CVA with left hemiparesis Acute ? 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 HTN, essen, chronic Medication noncompliance Morbid Obesity 2/2 excess calories Mixed Hyperlipidemia Fall risk h/o CVA with left sided weakness Chronic pain syndrome Full code status Plan Continue with ASA, stain, and optimize BP control PT/OT/ST avoid nephrotoxic agents ECHO showed no vegetation and no ventricular dysfunction continue BP meds Hold Lisinopril for now b/c ARF obtain Renal Ultrasound continue IVF Consulted nephrology d/w pt in details further pt mgt per hospital course DVT PPx with lovenox Subjective Date of service: 12/28/17 Principal diagnosis: stroke Interval history: Pt seen and examined. still weak on the left side Objective - Constitutional Vitals: Vital Signs - 12hr 12/28/17 12/28/17 12/28/17 04:00 09:43 11:22 Temperature 97.5 F L 97.8 F Pulse Rate 64 76 79 Respiratory 18 18 Rate Blood Pressure 148/88 159/102 [Left] O2 Sat by Pulse 96 93 Oximetry 12/28/17 11:24 Temperature Pulse Rate 79 Respiratory Rate Blood Pressure [Left] O2 Sat by Pulse Oximetry General appearance: Present: no acute distress, well-nourished - EENT Eyes: PERRL, EOM intact - Neck Neck: supple, normal ROM - Respiratory Respiratory effort: normal Respiratory: bilateral: CTA - Cardiovascular Rhythm: regular Heart Sounds: Present: S1 & S2. Absent: gallop, rub Extremities: pulses intact, No edema, normal color, Full ROM - Gastrointestinal General gastrointestinal: Present: soft, non-tender, non-distended, normal bowel sounds - Integumentary Integumentary: clear, warm, dry - Musculoskeletal Musculoskeletal: 1, strength equal bilaterally - Neurologic Neurologic: moves all extremities - Psychiatric Psychiatric: memory intact, appropriate mood/affect, intact judgment & insight - Labs CBC & Chem 7: 12/28/17 05:45 12/28/17 05:45 Labs: Abnormal lab results 12/27/17 12/28/17 12/28/17 Range/Units 21:06 05:45 05:45 RBC 6.93 H (3.65-5.03) M/mm3 Hct 48.3 H (35.5-45.6) % MCV 70 L (84-94) fl MCH 22 L (28-32) pg MCHC 31 L (32-34) % RDW 17.1 H (13.2-15.2) % [place] % (Auto) 14.5 H (0.0-7.3) % [place] # 0.9 H (0.0-0.8) K/mm3 BUN 29 H (9-20) mg/dL Creatinine 2.0 H (0.8-1.5) mg/dL Glucose 110 H (75-100) mg/dL POC Glucose 121 H (70-105) Albumin 3.1 L (3.9-5) g/dL 12/28/17 Range/Units 06:53 RBC (3.65-5.03) M/mm3 Hct (35.5-45.6) % MCV (84-94) fl MCH (28-32) pg MCHC (32-34) % RDW (13.2-15.2) % [place] % (Auto) (0.0-7.3) % [place] # (0.0-0.8) K/mm3 BUN (9-20) mg/dL Creatinine (0.8-1.5) mg/dL Glucose (75-100) mg/dL POC Glucose 111 H (70-105) Albumin (3.9-5) g/dL
--- NOTE | 2017-12-28 14:59 | Consultation ---
History of Present Illness - Reason for Consult Consult date: 12/28/17 acute renal failure, chronic renal failure Requesting physician: MICAH JUDD - History of Present Illness This is a 57 yo M with PMHx of hypertension, CKD with unknown baseline Cr, who presented initially to the ER with complaints of weakness and numbness of his left arm and left leg. The patient states he was told he had a stroke approximately 8 months ago but did not have any residual deficits. Pt was diagnosed with acute right pontine infarct as evidenced by MRI and was admitted for further neurological work up/treatment. labs showed elevated BUN/Cr at 29/ 2.0mg/dl for which renal consult is requested. As per patient, he was told to have abnormal kidney function in the past, however pt does not recall what stage /or baseline Cr. Pt denies fever, chills, n/v/d, dysuria, abd pain, denies recent NSAIDs use or IV contrast exposure Past History Past Medical History: hypertension, renal failure, stroke Past Surgical History: Other (bilateral hip surgery, colosctomy with reversal ) Social history: denies: smoking, alcohol abuse, prescription drug abuse, IV drug use Family history: hypertension Medications and Allergies Allergies Allergy/AdvReac Type Severity Reaction Status Date / Time No Known Allergies Allergy Unverified 12/23/17 10:22 Home Medications Medication Instructions Recorded Confirmed Last Taken Type Amlodipine Besylate [Norvasc] 10 mg PO QDAY 12/23/17 12/23/17 Unknown History AtorvaSTATin [Lipitor] 40 mg PO QHS 12/23/17 12/23/17 Unknown History Carvedilol [Coreg] 12.5 mg PO BID 12/23/17 12/23/17 Unknown History Doxazosin Mesylate [Cardura] 2 mg PO QPM 12/23/17 12/23/17 Unknown History Lisinopril [Zestril] 40 mg PO QDAY 12/23/17 12/23/17 Unknown History cloNIDine [Catapres] 0.1 mg PO BID 12/23/17 12/23/17 Unknown History Active Meds: Active Medications Acetaminophen (Tylenol) 650 mg PO Q4H PRN PRN Reason: Pain MILD(1-3)/Fever >100.5/MCGHEE Amlodipine Besylate (Norvasc) 10 mg PO QDAY JOSIE Last Admin: 12/28/17 11:24 Dose: 10 mg Atorvastatin Calcium (Lipitor) 40 mg PO QHS [facility] Last Admin: 12/27/17 22:28 Dose: 40 mg Carvedilol (Coreg) 12.5 mg PO BID [facility] Last Admin: 12/27/17 22:28 Dose: 12.5 mg Clonidine HCl (Catapres) 0.1 mg PO BID [facility] Last Admin: 12/28/17 11:22 Dose: 0.1 mg Clopidogrel Bisulfate (Plavix) 75 mg PO QDAY [facility] Last Admin: 12/28/17 11:26 Dose: 75 mg Doxazosin Mesylate (Cardura) 2 mg PO QPM [facility] Last Admin: 12/27/17 17:14 Dose: 2 mg Enoxaparin Sodium (Lovenox) 40 mg SUB-Q QDAY [facility] Last Admin: 12/28/17 11:23 Dose: 40 mg Famotidine (Pepcid) 20 mg PO BID [facility] Last Admin: 12/28/17 11:25 Dose: 20 mg Hydralazine HCl (Apresoline) 10 mg IV Q4HR PRN PRN Reason: Keep SBP between 160-185 mm Hg Last Admin: 12/23/17 23:05 Dose: 10 mg Hydromorphone HCl (Dilaudid) 0.5 mg IV Q3H PRN PRN Reason: Pain , Severe (7-10) Last Admin: 12/25/17 21:48 Dose: 0.5 mg Sodium Chloride (Nacl 0.9% 1000 Ml) 1,000 mls @ 75 mls/hr IV DIRECT [facility] Last Admin: 12/27/17 17:23 Dose: 75 mls/hr Morphine Sulfate (Morphine) 2 mg IV Q4H PRN PRN Reason: Pain, Moderate (4-6) Last Admin: 12/26/17 20:54 Dose: 2 mg Ondansetron HCl (Zofran) 4 mg IV Q8H PRN PRN Reason: Nausea And Vomiting Oxycodone/Acetaminophen (Percocet 5/325) 1 tab PO Q6H PRN PRN Reason: Pain, Moderate (4-6) Last Admin: 12/27/17 23:39 Dose: 1 tab Sodium Chloride (Sodium Chloride Flush Syringe 10 Ml) 10 ml IV BID [facility] Last Admin: 12/28/17 11:27 Dose: 10 ml Sodium Chloride (Sodium Chloride Flush Syringe 10 Ml) 10 ml IV PRN PRN PRN Reason: LINE FLUSH Zolpidem Tartrate (Ambien) 5 mg PO QHS PRN PRN Reason: Insomnia Last Admin: 12/27/17 22:28 Dose: 5 mg Review of Systems All systems: negative Constitutional: weakness Exam - Vital Signs Vital signs: Vital Signs Temp Pulse Resp BP Pulse Ox 98.6 F 108 H 16 197/128 97 12/23/17 10:08 12/23/17 10:08 12/23/17 10:08 12/23/17 10:08 12/23/17 10:08 - General Appearance General appearance: well-developed, well-nourished, appears stated age EENT: ATNC, PERRL, mucous membranes moist Respiratory: Clear to Ascultation Heart: regular, S1S2 Gastrointestinal: Present: normoactive bowel sounds Integumentary: no rash, other (no edema ) Neurologic: alert and oriented x3, strength 5/5 Psychiatric: mood/affect appropriate, cooperative Results - Lab Results 12/28/17 05:45 12/28/17 05:45 Most recent lab results Calcium 8.9 mg/dL (8.4-10.2) 12/28/17 05:45 Assessment and Plan - Patient Problems (1) DICKSON (acute kidney injury) Current Visit: Yes Status: Acute Plan to address problem: most likely due to pre-renal azotemia superimposed on CKD. will check renal US to assess size of kidneys, to rule out structural abnormalitie. supportive care avoid nephrotoxins, NSAIDs IV contrast. (2) CVA (cerebral vascular accident) Current Visit: Yes Status: Acute Qualifiers: CVA mechanism: thrombosis Precerebral and cerebral artery: middle cerebral artery Laterality of affected vessel: right Qualified Code(s): I63.311 - Cerebral infarction due to thrombosis of right middle cerebral artery Plan to address problem: follow neuro recommendations (3) HTN (hypertension) Current Visit: Yes Status: Chronic Qualifiers: Hypertension type: essential hypertension Qualified Code(s): I10 - Essential (primary) hypertension Plan to address problem: BP elevated, will d/c IV NS since no significant change in renal function seen
[2017-12-28] MEDS: COREG PO SCH ×2 (18:00→21:45)
[2017-12-28] MEDS: CARDURA PO SCH (19:07)
[2017-12-28] MEDS: PERCOCET 5/325 PO PRN (21:44)
[2017-12-28] MEDS: AMBIEN PO PRN (21:45)
[2017-12-29] MEDS: COREG PO SCH ×2 (11:00→22:15)
--- NOTE | 2017-12-29 12:21 | Progress Note ---
Assessment and Plan - Patient Problems (1) DICKSON (acute kidney injury) Current Visit: Yes Status: Acute Plan to address problem: most likely due to pre-renal azotemia superimposed on CKD. US pending to assess size of kidneys, to rule out structural abnormalitie. supportive care avoid nephrotoxins, NSAIDs IV contrast. (2) CVA (cerebral vascular accident) Current Visit: Yes Status: Acute Qualifiers: CVA mechanism: thrombosis Precerebral and cerebral artery: middle cerebral artery Laterality of affected vessel: right Qualified Code(s): I63.311 - Cerebral infarction due to thrombosis of right middle cerebral artery Plan to address problem: follow neuro recommendations (3) HTN (hypertension) Current Visit: Yes Status: Chronic Qualifiers: Hypertension type: essential hypertension Qualified Code(s): I10 - Essential (primary) hypertension Plan to address problem: BP elevated, will d/c IV NS since no significant change in renal function seen Subjective Date of service: 12/29/17 Principal diagnosis: stroke Interval history: pt awake, alert, in NAD Objective - Vital Signs Vital signs: Vital Signs - 12hr 12/29/17 12/29/17 04:51 08:46 Temperature 97.4 F L 97.7 F Pulse Rate 62 57 L Respiratory 22 18 Rate Blood Pressure 128/78 158/99 [Left] O2 Sat by Pulse 100 96 Oximetry - General Appearance General appearance: well-developed, well-nourished, appears stated age EENT: ATNC, PERRL, mucous membranes moist Neck: no JVD Respiratory: Present: Clear to Ascultation Cardiology: regular, S1S2 Gastrointestinal: normoactive bowel sounds Integumentary: no rash, other (no edema ) Neurologic: no focal deficit, alert and oriented x3, strength 5/5 Psychiatric: mood/affect appropriate, cooperative - Lab 12/28/17 05:45 12/28/17 05:45 Most recent lab results Calcium 8.9 mg/dL (8.4-10.2) 12/28/17 05:45
[2017-12-29] MEDS: CATAPRES PO SCH ×2 (12:45→22:15)
[2017-12-29] MEDS: LOVENOX SUB-Q SCH (12:46)
[2017-12-29] MEDS: PEPCID PO SCH ×2 (12:48→22:15)
[2017-12-29] MEDS: NORVASC PO SCH (12:48)
[2017-12-29] MEDS: SODIUM CHLORIDE FLUSH SYRINGE 10 ML IV SCH ×2 (12:49→22:15)
[2017-12-29] MEDS: PLAVIX PO SCH (12:49)
--- NOTE | 2017-12-29 12:51 | Progress Note ---
Assessment and Plan Assessment and plan: Acute CVA with left hemiparesis -cont plavix and Lipitor. 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 Hypertensive emergency. -BP controlled on multiple antihypertensive agents. Medication noncompliance -Patient counseled Mixed Hyperlipidemia -Continue statin Chronic pain syndrome -Will discontinue dilaudid and cont PRN morphine and percocet Disposition: for discharge when cleared by the rental clerk. History Interval history: Patient is a 57-year-old male admitted for acute CVA. He has no new complaints. Hospitalist Physical - Constitutional Vitals: Temp Pulse Resp BP Pulse Ox 97.7 F 57 L 18 158/99 96 12/29/17 08:46 12/29/17 08:46 12/29/17 08:46 12/29/17 08:46 12/29/17 08:46 General appearance: Present: no acute distress, well-nourished - EENT Eyes: Present: PERRL, EOM intact ENT: hearing intact - Neck Neck: Present: supple - Respiratory Respiratory effort: normal Respiratory: bilateral: CTA - Cardiovascular Rhythm: regular Heart Sounds: Present: S1 & S2 - Extremities Extremities: No edema - Abdominal General gastrointestinal: soft, non-tender, normal bowel sounds - Neurologic Neurologic: other (left hemiparesis) Results - Labs CBC & Chem 7: 12/28/17 05:45 12/28/17 05:45 Labs: Laboratory Last Values WBC 6.1 K/mm3 (4.5-11.0) 12/28/17 05:45 RBC 6.93 M/mm3 (3.65-5.03) H 12/28/17 05:45 Hgb 15.1 gm/dl (11.8-15.2) 12/28/17 05:45 Hct 48.3 % (35.5-45.6) H 12/28/17 05:45 MCV 70 fl (84-94) L 12/28/17 05:45 MCH 22 pg (28-32) L 12/28/17 05:45 MCHC 31 % (32-34) L 12/28/17 05:45 RDW 17.1 % (13.2-15.2) H 12/28/17 05:45 Plt Count 231 K/mm3 (140-440) 12/28/17 05:45 Lymph % (Auto) 30.2 % (13.4-35.0) 12/28/17 05:45 [place] % (Auto) 14.5 % (0.0-7.3) H 12/28/17 05:45 Eos % (Auto) 1.8 % (0.0-4.3) 12/28/17 05:45 Baso % (Auto) 0.9 % (0.0-1.8) 12/28/17 05:45 Lymph # 1.9 K/mm3 (1.2-5.4) 12/28/17 05:45 [place] # 0.9 K/mm3 (0.0-0.8) H 12/28/17 05:45 Eos # 0.1 K/mm3 (0.0-0.4) 12/28/17 05:45 Baso # 0.1 K/mm3 (0.0-0.1) 12/28/17 05:45 Seg Neutrophils % 52.6 % (40.0-70.0) 12/28/17 05:45 Seg Neutrophils # 3.2 K/mm3 (1.8-7.7) 12/28/17 05:45 PT 12.2 Sec. (12.2-14.9) 12/23/17 11:00 INR 0.87 (0.87-1.13) 12/23/17 11:00 APTT 33.2 Sec. (24.2-36.6) 12/23/17 11:00 Thrombin Time 17.2 Sec. (15.1-19.6) 12/23/17 11:00 Sodium 137 mmol/L (137-145) 12/28/17 05:45 Potassium 4.4 mmol/L (3.6-5.0) 12/28/17 05:45 Chloride 100.2 mmol/L (98-107) 12/28/17 05:45 Carbon Dioxide 24 mmol/L (22-30) 12/28/17 05:45 Anion Gap 17 mmol/L 12/28/17 05:45 BUN 29 mg/dL (9-20) H 12/28/17 05:45 Creatinine 2.0 mg/dL (0.8-1.5) H 12/28/17 05:45 Estimated GFR 42 ml/min 12/28/17 05:45 BUN/Creatinine Ratio 15 % 12/28/17 05:45 Glucose 110 mg/dL (75-100) H 12/28/17 05:45 POC Glucose 122 (70-105) H 12/29/17 12:18 Hemoglobin A1c 7.3 % (4-6) H 12/23/17 20:19 Calcium 8.9 mg/dL (8.4-10.2) 12/28/17 05:45 Total Bilirubin 0.40 mg/dL (0.1-1.2) 12/28/17 05:45 AST 23 units/L (5-40) 12/28/17 05:45 ALT 26 units/L (7-56) 12/28/17 05:45 Alkaline Phosphatase 89 units/L (35-129) 12/28/17 05:45 Troponin T < 0.010 ng/mL (0.00-0.029) 12/23/17 11:00 Total Protein 7.2 g/dL (6.3-8.2) 12/28/17 05:45 Albumin 3.1 g/dL (3.9-5) L 12/28/17 05:45 Albumin/Globulin Ratio 0.8 % 12/28/17 05:45 Triglycerides 209 mg/dL (2-149) H 12/24/17 04:55 Cholesterol 246 mg/dL (50-199) H 12/24/17 04:55 LDL Cholesterol Direct 182 mg/dL (50-130) H 12/24/17 04:55 HDL Cholesterol 38 mg/dL (40-59) L 12/24/17 04:55 Cholesterol/HDL Ratio 6.47 % 12/24/17 04:55
[2017-12-29] MEDS: CARDURA PO SCH (18:41)
--- NOTE | 2017-12-29 20:35 | Progress Note ---
Assessment and Plan Acute CVA with left hemiparesis Acute ? 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 HTN, essen, chronic Morbid Obesity 2/2 excess calories Mixed Hyperlipidemia Fall risk h/o CVA with left sided weakness Chronic pain syndrome Plan Continue with ASA, stain, and optimize BP control PT/OT/ST avoid nephrotoxic agents ECHO showed no vegetation and no ventricular dysfunction continue BP meds Hold Lisinopril for now b/c ARF obtain Renal Ultrasound continue IVF Consulted nephrology d/w pt in details further pt mgt per hospital course DVT PPx with lovenox Disposition: [facility] placement Subjective Date of service: 12/27/17 Principal diagnosis: stroke Interval history: Pt seen and examined. still weak on the left side. No Headache Objective - Constitutional Vitals: Vital Signs - 12hr 12/29/17 12/29/17 12/29/17 08:46 11:00 12:45 Temperature 97.7 F Pulse Rate 57 L 90 90 Respiratory 18 Rate Blood Pressure Blood Pressure 158/99 [Left] O2 Sat by Pulse 96 Oximetry 12/29/17 12/29/17 12/29/17 12:48 18:41 19:32 Temperature Pulse Rate 90 Respiratory 18 Rate Blood Pressure 149/86 Blood Pressure [Left] O2 Sat by Pulse 98 Oximetry 12/29/17 20:06 Temperature 98.1 F Pulse Rate 69 Respiratory 18 Rate Blood Pressure Blood Pressure 151/76 [Left] O2 Sat by Pulse 97 Oximetry General appearance: Present: no acute distress, well-nourished - EENT Eyes: PERRL, EOM intact Ears: bilateral: normal - Neck Neck: supple, normal ROM - Respiratory Respiratory effort: normal Respiratory: bilateral: CTA - Cardiovascular Rhythm: regular Heart Sounds: Present: S1 & S2. Absent: gallop, rub Extremities: pulses intact, No edema, normal color, Full ROM - Gastrointestinal General gastrointestinal: Present: soft, non-tender, non-distended, normal bowel sounds - Integumentary Integumentary: clear, warm, dry - Musculoskeletal Musculoskeletal: 1, strength equal bilaterally - Neurologic Neurologic: moves all extremities - Psychiatric Psychiatric: memory intact, appropriate mood/affect, intact judgment & insight - Labs CBC & Chem 7: 12/28/17 05:45 12/28/17 05:45 Labs: Abnormal lab results 12/28/17 12/29/17 12/29/17 Range/Units 22:03 12:18 17:33 POC Glucose 114 H 122 H 164 H (70-105)
[2017-12-29] MEDS: AMBIEN PO PRN (22:15)
[2017-12-29] MEDS: PERCOCET 5/325 PO PRN (22:16)
[2017-12-30 06:09] LABS: Calcium 8.9 mg/dL (8.4-10.2)
--- NOTE | 2017-12-30 08:43 | Progress Note ---
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 HTN, essen, chronic Morbid Obesity 2/2 excess calories Mixed Hyperlipidemia Fall risk Chronic pain syndrome Plan Continue with ASA, stain, and optimize BP control PT/OT/ST avoid nephrotoxic agents ECHO showed no vegetation and no ventricular dysfunction continue BP meds Hold Lisinopril for now b/c ARF obtain Renal Ultrasound continue IVF Consulted nephrology d/w pt in details further pt mgt per hospital course DVT PPx with lovenox Disposition: [facility] placement whenever bed is available Subjective Date of service: 12/30/17 Principal diagnosis: acute stroke, DICKSON, HTN Interval history: Pt seen and examined. still weak on the left side. Having PT. No Headache Objective - Constitutional Vitals: Vital Signs - 12hr 12/29/17 12/29/17 12/29/17 22:15 22:16 22:19 Temperature Pulse Rate 69 Respiratory 20 Rate Respiratory 20 Rate [Bilateral Hip] Blood Pressure 151/76 Blood Pressure [Left] O2 Sat by Pulse Oximetry 12/30/17 12/30/17 00:57 06:00 Temperature 98.1 F 98.4 F Pulse Rate 66 67 Respiratory 18 18 Rate Respiratory Rate [Bilateral Hip] Blood Pressure Blood Pressure 128/86 139/99 [Left] O2 Sat by Pulse 95 97 Oximetry General appearance: Present: no acute distress, well-nourished - EENT Eyes: PERRL, EOM intact - Neck Neck: supple, normal ROM - Respiratory Respiratory effort: normal Respiratory: bilateral: CTA - Cardiovascular Rhythm: regular Heart Sounds: Present: S1 & S2. Absent: gallop, rub Extremities: pulses intact, No edema, normal color, Full ROM - Gastrointestinal General gastrointestinal: Present: soft, non-tender, non-distended, normal bowel sounds - Integumentary Integumentary: clear, warm, dry - Musculoskeletal Musculoskeletal: left sided weakness - Neurologic Neurologic: CNII-XII intact, other (weak on the left side) - Psychiatric Psychiatric: memory intact, appropriate mood/affect, intact judgment & insight - Labs CBC & Chem 7: 12/28/17 05:45 12/30/17 04:53 Labs: Abnormal lab results 12/29/17 12/29/17 12/29/17 Range/Units 12:18 17:33 21:24 BUN (9-20) mg/dL Creatinine (0.8-1.5) mg/dL Glucose (75-100) mg/dL POC Glucose 122 H 164 H 146 H (70-105) 12/30/17 Range/Units 04:53 BUN 26 H (9-20) mg/dL Creatinine 1.9 H (0.8-1.5) mg/dL Glucose 106 H (75-100) mg/dL POC Glucose (70-105)
[2017-12-30] MEDS: LOVENOX SUB-Q SCH (10:00)
[2017-12-30] MEDS: PLAVIX PO SCH (10:01)
[2017-12-30] MEDS: PEPCID PO SCH ×2 (10:01→22:44)
[2017-12-30] MEDS: COREG PO SCH ×2 (10:02→22:45)
[2017-12-30] MEDS: NORVASC PO SCH (10:03)
[2017-12-30] MEDS: CATAPRES PO SCH ×2 (10:03→22:45)
--- NOTE | 2017-12-30 17:06 | Progress Note ---
Assessment and Plan - Patient Problems (1) DICKSON (acute kidney injury) Current Visit: Yes Status: Acute Plan to address problem: most likely due to pre-renal azotemia superimposed on CKD. Renal function unchanged, likely baseline renal function. cont supportive care for CKD (2) CVA (cerebral vascular accident) Current Visit: Yes Status: Acute Qualifiers: CVA mechanism: thrombosis Precerebral and cerebral artery: middle cerebral artery Laterality of affected vessel: right Qualified Code(s): I63.311 - Cerebral infarction due to thrombosis of right middle cerebral artery Plan to address problem: follow neuro recommendations (3) HTN (hypertension) Current Visit: Yes Status: Chronic Qualifiers: Hypertension type: essential hypertension Qualified Code(s): I10 - Essential (primary) hypertension Plan to address problem: BP elevated, will d/c IV NS since no significant change in renal function seen Subjective Date of service: 12/30/17 Principal diagnosis: acute stroke, DICKSON, HTN Interval history: pt awake, alert, in NAD Objective - Vital Signs Vital signs: Vital Signs - 12hr 12/30/17 12/30/17 12/30/17 06:00 08:49 10:00 Temperature 98.4 F 98.3 F Pulse Rate 67 64 61 Pulse Rate [ 64 Apical] Respiratory 18 18 20 Rate Blood Pressure Blood Pressure 139/99 146/94 [Left] O2 Sat by Pulse 97 98 98 Oximetry 12/30/17 12/30/17 10:02 10:03 Temperature Pulse Rate 69 69 Pulse Rate [ Apical] Respiratory Rate Blood Pressure 146/94 146/94 Blood Pressure [Left] O2 Sat by Pulse Oximetry - General Appearance General appearance: well-developed, well-nourished, appears stated age EENT: ATNC, PERRL, mucous membranes moist Neck: no JVD Respiratory: Present: Clear to Ascultation Cardiology: regular, S1S2 Gastrointestinal: normoactive bowel sounds Integumentary: no rash, other (no edema ) Neurologic: no focal deficit, alert and oriented x3, strength 5/5, CN 3-12 intact Psychiatric: mood/affect appropriate, cooperative - Lab 12/28/17 05:45 12/30/17 04:53 Most recent lab results Calcium 8.9 mg/dL (8.4-10.2) 12/30/17 04:53
[2017-12-30] MEDS: PERCOCET 5/325 PO PRN ×2 (17:55→23:05)
[2017-12-30] MEDS: CARDURA PO SCH (17:56)
[2017-12-30] MEDS: SODIUM CHLORIDE FLUSH SYRINGE 10 ML IV SCH ×2 (22:43→22:45)
[2017-12-30] MEDS: AMBIEN PO PRN (22:44)
[2017-12-31] MEDS: LOVENOX SUB-Q SCH (09:18)
[2017-12-31] MEDS: PLAVIX PO SCH (09:19)
[2017-12-31] MEDS: COREG PO SCH (09:19)
[2017-12-31] MEDS: CATAPRES PO SCH (09:19)
[2017-12-31] MEDS: NORVASC PO SCH (09:20)
[2017-12-31] MEDS: PEPCID PO SCH (09:20)
[2017-12-31] MEDS: PERCOCET 5/325 PO PRN (09:36)
[2017-12-31] MEDS: SODIUM CHLORIDE FLUSH SYRINGE 10 ML IV SCH (10:00)
--- NOTE | 2017-12-31 10:55 | Progress Note ---
Assessment and Plan - Patient Problems (1) DICKSON (acute kidney injury) Current Visit: Yes Status: Acute Plan to address problem: most likely due to pre-renal azotemia superimposed on CKD. Renal function unchanged, likely baseline renal function. cont supportive care for CKD (2) CVA (cerebral vascular accident) Current Visit: Yes Status: Acute Qualifiers: CVA mechanism: thrombosis Precerebral and cerebral artery: middle cerebral artery Laterality of affected vessel: right Qualified Code(s): I63.311 - Cerebral infarction due to thrombosis of right middle cerebral artery Plan to address problem: follow neuro recommendations (3) HTN (hypertension) Current Visit: Yes Status: Chronic Qualifiers: Hypertension type: essential hypertension Qualified Code(s): I10 - Essential (primary) hypertension Plan to address problem: BP elevated, will d/c IV NS since no significant change in renal function seen Subjective Date of service: 12/31/17 Principal diagnosis: acute stroke, DICKSON, HTN Interval history: pt awake, alert, in NAD Objective - Vital Signs Vital signs: Vital Signs - 12hr 12/30/17 12/30/17 12/30/17 23:05 23:10 23:46 Temperature 98.0 F Pulse Rate 67 69 Respiratory 20 18 Rate Respiratory 18 Rate [Bilateral Hip] Blood Pressure 133/93 O2 Sat by Pulse 94 Oximetry 12/31/17 12/31/17 12/31/17 00:05 04:47 09:17 Temperature 98.4 F 97.7 F Pulse Rate 63 68 Respiratory 18 18 18 Rate Respiratory Rate [Bilateral Hip] Blood Pressure 152/93 176/100 O2 Sat by Pulse 97 99 Oximetry 12/31/17 12/31/17 12/31/17 09:19 09:20 09:36 Temperature Pulse Rate 70 70 Respiratory 20 Rate Respiratory Rate [Bilateral Hip] Blood Pressure 176/100 176/100 O2 Sat by Pulse Oximetry - General Appearance General appearance: well-developed, well-nourished, appears stated age EENT: ATNC, PERRL, mucous membranes moist Neck: no JVD Respiratory: Present: Clear to Ascultation Cardiology: regular, S1S2 Gastrointestinal: normoactive bowel sounds Integumentary: no rash, other (no edema ) Neurologic: no focal deficit, alert and oriented x3, strength 5/5, CN 3-12 intact Psychiatric: mood/affect appropriate, cooperative - Lab 12/28/17 05:45 04/03/18 04:53 Most recent lab results Calcium 8.9 mg/dL (8.4-10.2) 12/30/17 04:53
--- NOTE | 2017-12-31 15:41 | Discharge Summary ---
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 Physical Therapy Notified:: case management 12/23/17 20:01 Consult to Physician [CONS] Routine Comment: Consulting Provider: JESÚS FRANCISCO Physician Instructions: Reason For Exam: cva 12/23/17 20:07 Occupational Therapy Evaluate and Treat [CONS] Routine Comment: Reason For Exam: Neuro deficits Physical Therapy Evaluation and Treat [CONS] Routine Comment: Reason For Exam: Neuro deficits 12/24/17 17:21 Consult to Physician [CONS] Routine Comment: Consulting Provider: RONALD BURGER Physician Instructions: Reason For Exam: acute on ckd 12/27/17 14:05 Consult to Physician [CONS] Routine Comment: Consulting Provider: GUNJAN MCGEE Physician Instructions: Reason For Exam: DICKSON Primary care physician: PHOTOCOPY OPERATOR Hospitalization Reason for admission: acute stroke with left hemiparesis, acute on CKD Condition: Fair Pertinent studies: Head CT shows a remote R pontine patchy lacumar infarct. MRI shows a 1.7 cm acute non-hemorrhagic infarct on right brandon. Echo - EF of 55-60%. Disposition: DC-30 STILL A PATIENT Exam - Constitutional Vitals: Temp Pulse Resp BP Pulse Ox 97.7 F 70 20 176/100 99 12/31/17 09:17 12/31/17 09:20 12/31/17 09:36 12/31/17 09:20 12/31/17 09:17 Plan Follow up with: TITI ECHEVARRIA MD [Primary Care Provider] - 3-5 Days
--- NOTE | 2017-12-31 15:56 | Discharge Summary ---
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 Physical Therapy Notified:: case management 12/23/17 20:01 Consult to Physician [CONS] Routine Comment: Consulting Provider: JESÚS FRANCISCO Physician Instructions: Reason For Exam: cva 12/23/17 20:07 Occupational Therapy Evaluate and Treat [CONS] Routine Comment: Reason For Exam: Neuro deficits Physical Therapy Evaluation and Treat [CONS] Routine Comment: Reason For Exam: Neuro deficits 12/24/17 17:21 Consult to Physician [CONS] Routine Comment: Consulting Provider: RONALD BURGER Physician Instructions: Reason For Exam: acute on ckd 12/27/17 14:05 Consult to Physician [CONS] Routine Comment: Consulting Provider: GUNJAN MCGEE Physician Instructions: Reason For Exam: DICKSON Primary care physician: SEO MARKETING SPECIALIST Hospitalization Reason for admission: The patient is a 57-year-old male presenting with a chief complaint of left Condition: Fair Pertinent studies: Head CT shows remote right pontine patchy lacunar infarct, MRI shows 1.7cm. There was acute nonhemorrhagic infarct in the right brandon. Echo reveals EF of 55- 60%. Procedures: None Hospital course: The patient is a 57-year-old male presenting with a chief complaint of left- sided weakness. The patient states his symptoms began 3 days ago with numbness and weakness of his left arm and left leg. Patient denies dysarthria or dysphagia. The patient states he was told he had a stroke approximately 8 months ago but did not have any residual deficits. On admission, CT scan of brain shows a remote right pontine patchy lacunar infarct and MRI shows a 1.7 cm acute non hemorrhagic infarct in right brandon. Patient started on aspirin, atorvastatin , PT/OT and speech therapy. Patient has gained some strength back on his left side. Pt is ambulating with 1 person assist. Pt will be discharged home with home PT. Pt has instructed to follow up with PCP in 2-7 days after the discharge. Disposition: - TO HOME OR SELFCARE Time spent for discharge: 33 min - Discharge Diagnoses (1) CVA (cerebral vascular accident) Status: Acute Qualifiers: CVA mechanism: thrombosis Precerebral and cerebral artery: middle cerebral artery Laterality of affected vessel: right Qualified Code(s): I63.311 - Cerebral infarction due to thrombosis of right middle cerebral artery (2) Hyperkalemia Status: Acute (3) Left-sided weakness Status: Acute (4) HLD (hyperlipidemia) Status: Chronic Qualifiers: Hyperlipidemia type: mixed hyperlipidemia Qualified Code(s): E78.2 - Mixed hyperlipidemia (5) HTN (hypertension) Status: Chronic Qualifiers: Hypertension type: essential hypertension Qualified Code(s): I10 - Essential (primary) hypertension Core Measure Documentation - Palliative Care Palliative Care/ Comfort Measures: Not Applicable - Core Measures Any of the following diagnoses?: stroke - Stroke Discharge Requirements Statin for LDL = or >70 mg/dl on DC: Yes Anticoag for atrial fib/atrial flutter: Not Applicable Antithrombotic for ischemic stroke: Yes Exam - Constitutional Vitals: Temp Pulse Resp BP Pulse Ox 97.7 F 70 20 176/100 99 12/31/17 09:17 12/31/17 09:20 12/31/17 09:36 12/31/17 09:20 12/31/17 09:17 General appearance: Present: no acute distress, well-nourished - EENT Eyes: Present: PERRL - Neck Neck: Present: supple, normal ROM - Respiratory Respiratory effort: normal Respiratory: bilateral: CTA - Cardiovascular Heart Sounds: Present: S1 & S2. Absent: rub, click - Extremities Extremities: pulses symmetrical, No edema Peripheral Pulses: within normal limits - Abdominal General gastrointestinal: Present: soft, non-tender, non-distended, normal bowel sounds Male genitourinary: Present: normal - Integumentary Integumentary: Present: clear, warm, dry - Musculoskeletal Musculoskeletal: gait normal, strength equal bilaterally - Psychiatric Psychiatric: appropriate mood/affect, intact judgment & insight - Neurologic Neurologic: CNII-XII intact, moves all extremities, other (left sided weakness) Plan Activity: advance as tolerated, fall precautions Weight Bearing Status: Weight Bear as Tolerated Diet: low cholesterol Special Instructions: physical therapy Durable Medical Equipment Needed Upon Discharge: Walker-Rolling Follow up with: PRIMARY CARE, [Primary Care Provider] - 3-5 Days Prescriptions: amLODIPine [Norvasc] 10 mg PO QDAY #30 tablet AtorvaSTATin [Lipitor] 40 mg PO QHS #30 tablet Clopidogrel [Plavix] 75 mg PO QDAY #30 tablet Doxazosin Mesylate [Cardura] 2 mg PO QPM #30 tablet Lisinopril [Zestril] 40 mg PO QDAY #30 tablet oxyCODONE /ACETAMINOPHEN [Percocet 5/325 mg] 1 tab PO Q6H PRN #20 tablet PRN Reason: Pain, Moderate (4-6)
[2017-12-31] MEDS: CARDURA PO SCH (16:53)
[2017-12-31 16:55] VITALS: BP 168/101
== END 2017-12-31 18:31 | disposition home or self-care (01) | DRG 64 ==
LOC: ED 09:56 → 4A 13:54
PROVIDERS: ADMIT Internal Medicine; ATTEND Family Medicine
DX: I63.9 Cerebral infarction, unspecified (principal); N17.0 Acute kidney failure with tubular necrosis; G81.94 Hemiplegia, unspecified affecting left nondominant side; E87.5 Hyperkalemia; E66.01 Morbid (severe) obesity due to excess calories; E78.2 Mixed hyperlipidemia; G89.4 Chronic pain syndrome; I12.9 Hypertensive chronic kidney disease with stage 1 through stage 4 chronic kidney disease, or unspecified chronic kidney disease; N18.3 Chronic kidney disease, stage 3 (moderate); I16.1 Hypertensive emergency; Z79.899 Other long term (current) drug therapy; Z82.49 Family history of ischemic heart disease and other diseases of the circulatory system; Z91.14 Patient's other noncompliance with medication regimen; Z68.33 Body mass index [BMI] 33.0-33.9, adult
CPT/HCPCS: 36415; 70450; 70544; 70551; 80048; 80053; 80061; 82962; 83036; 84484; 85025; 85610; 85670; 85730; 93005; 93010; 93306; 93880; 96372; 96374; 96375; A9270-GY; J0360; J1170; J1650; J2270; J7030

== ENCOUNTER 2020-06-23 20:23 | Emergency (ER) | payer MEDICAID ==
[2020-06-23] MEDS ORDERED: HYDROmorphone 1 MG/1 ML INJ IV ONE (21:48)
[2020-06-23] MEDS ORDERED: ONDANSETRON 4 MG/2 ML INJ IV ONE (21:48)
[2020-06-23 21:51] VITALS: BP 163/95
--- NOTE | 2020-06-23 21:52 | XRay Report ---
LEFT SHOULDER 3 VIEW(S) INDICATION / CLINICAL INFORMATION: Left shoulder pain COMPARISON: None available. FINDINGS: BONES / JOINT(S): Comminuted and displaced fracture of the left humeral neck extending into the great er tuberosity. No evidence of dislocation. Moderate glenohumeral and AC joint degenerative change. SOFT TISSUES: Soft tissue swelling surrounds fracture site. ADDITIONAL FINDINGS: None. Signer Name: Jackson Mg MD Signed: 06/23/2020 9:47 PM Workstation Name: [email or web address]
--- NOTE | 2020-06-23 21:54 | Emergency Department Report ---
ED Fall HPI - General Chief Complaint: Fall Stated Complaint: LEFT SHOULDER AND RIGHT KNEE PAIN Time Seen by Provider: 06/23/20 21:17 Source: patient Mode of arrival: Stretcher Limitations: No Limitations - History of Present Illness Initial Comments: Patient is a 59-year-old male that presents emergency room with complaints of fall, left shoulder pain and right knee pain. Patient brought in by EMS. Patient states he slipped and fell down his steps. Patient states he fell out approximately 4 steps. Patient states he landed on his right knee and his left shoulder. Patient states the pain in his left shoulder is an 8 out of 10. Patient states the right knee is a 6-7 out of 10. Patient states the pain is worse with palpation and movement. Patient states his pain is better with rest and remaining still. Patient denies fever and chills. Patient denies hitting his head. Patient denies loss of consciousness. Patient denies other injuries. Patient denies any other areas of pain. Patient states EMS placed an Tez wrap on his right knee and it feels better. Patient denies recent travel. Patient denies recent international travel. Patient denies exposure to the novel coronavirus. Patient denies sick contacts. Patient denies fever and chills. Patient denies cough. Patient denies diarrhea. Patient denies coming in contact with anybody with symptoms of the novel coronavirus. Complaint: fall -: Sudden Fall From: standing When Fall Occurred: 1 hour [employer] Fall Witnessed: no Place Fall Occurred: home Loss of Consciousness: none Prolonged Down Time?: no Symptoms Prior to Fall: none Location - Extremities: Left: Shoulder, Right: Knee Severity: severe Quality: stabbing Context: tripped/slipped Associated Symptoms: denies. denies: headache, neck pain, numbness, weakness, chest paint, shortness of breath, abdominal pain, hematuria, unable to walk, lightheaded, vertigo, confusion - Related Data Previous Rx's Medication Instructions Recorded Last Taken Type AtorvaSTATin [Lipitor] 40 mg PO QHS #30 tablet 12/31/17 Unknown Rx Clopidogrel [Plavix] 75 mg PO QDAY #30 tablet 12/31/17 Unknown Rx Doxazosin Mesylate [Cardura] 2 mg PO QPM #30 tablet 12/31/17 Unknown Rx Lisinopril [Zestril] 40 mg PO QDAY #30 tablet 12/31/17 Unknown Rx amLODIPine 10 mg PO QDAY #30 tablet 12/31/17 Unknown Rx oxyCODONE /ACETAMINOPHEN [Percocet 1 tab PO Q6H PRN #20 tablet 06/23/20 Unknown Rx 5/325 mg] Allergies Allergy/AdvReac Type Severity Reaction Status Date / Time No Known Allergies Allergy Unverified 12/23/17 10:22 ED Review of Systems ROS: Stated complaint: LEFT SHOULDER AND RIGHT KNEE PAIN Other details as noted in HPI Constitutional: denies: chills, fever Eyes: denies: eye pain, eye discharge, vision change ENT: denies: ear pain, throat pain Respiratory: denies: cough, shortness of breath, wheezing Cardiovascular: denies: chest pain, palpitations Endocrine: no symptoms reported Gastrointestinal: denies: abdominal pain, nausea, diarrhea Genitourinary: denies: urgency, dysuria Musculoskeletal: denies: back pain, joint swelling, arthralgia Skin: denies: rash, lesions Neurological: denies: headache, weakness, paresthesias Psychiatric: denies: anxiety, depression Hematological/Lymphatic: denies: easy bleeding, easy bruising ED Past Medical Hx - Past Medical History Previous Medical History?: Yes Hx Hypertension: Yes Hx CVA: Yes - Surgical History Past Surgical History?: Yes Hx Cholecystectomy: Yes Hx Appendectomy: Yes Additional Surgical History: Bilateral hip repair, just of the abdomen. Colostomy with reversal - Family History Family history: no significant - Social History Smoking Status: Never Smoker Substance Use Type: None - Medications Home Medications: Home Medications Medication Instructions Recorded Confirmed Last Taken Type AtorvaSTATin [Lipitor] 40 mg PO QHS #30 tablet 12/31/17 Unknown Rx Clopidogrel [Plavix] 75 mg PO QDAY #30 tablet 12/31/17 Unknown Rx Doxazosin Mesylate [Cardura] 2 mg PO QPM #30 tablet 12/31/17 Unknown Rx Lisinopril [Zestril] 40 mg PO QDAY #30 tablet 12/31/17 Unknown Rx amLODIPine 10 mg PO QDAY #30 tablet 12/31/17 Unknown Rx oxyCODONE /ACETAMINOPHEN [Percocet 1 tab PO Q6H PRN #20 tablet 06/23/20 Unknown Rx 5/325 mg] ED Physical Exam - General Limitations: No Limitations General appearance: alert, in no apparent distress - Head Head exam: Present: atraumatic, normocephalic - Eye Eye exam: Present: normal appearance - ENT ENT exam: Present: mucous membranes moist - Neck Neck exam: Present: normal inspection - Respiratory Respiratory exam: Present: normal lung sounds bilaterally. Absent: respiratory distress - Cardiovascular Cardiovascular Exam: Present: regular rate, normal rhythm. Absent: systolic murmur, diastolic murmur, rubs, gallop - GI/Abdominal GI/Abdominal exam: Present: soft, normal bowel sounds - Rectal Rectal exam: Present: deferred - Extremities Exam Extremities exam: Present: normal inspection (Except for right knee abrasion.), tenderness (To right knee and left shoulder.), normal capillary refill. Absent: pedal edema, calf tenderness - Back Exam Back exam: Present: normal inspection - Neurological Exam Neurological exam: Present: alert, oriented X3 - Psychiatric Psychiatric exam: Present: normal affect, normal mood - Skin Skin exam: Present: warm, dry, intact, normal color. Absent: rash ED Course Vital Signs 06/23/20 06/23/20 20:28 21:49 Temperature 98.8 F Pulse Rate 106 H 96 H Respiratory 16 16 Rate Blood Pressure 157/100 Blood Pressure 163/95 [Left] O2 Sat by Pulse 98 96 Oximetry - Reevaluation(s) Reevaluation #1: Patient states pain is better. Patient in sling I discussed all results and clinical findings with patient. I discussed plan of care with patient. Patient agrees with plan of care. Patient is stable for discharge. Patient will be discharged home. Patient given discharge instructions. Patient voiced understanding of discharge instructions. 06/23/20 22:17 - Consultations Consultation #1: I discussed case with Dr. Nix, orthopedist. Dr. Nix does not recommend nothing further than a standard sling. 06/23/20 22:18 ED Medical Decision Making - Radiology Data Radiology results: report reviewed RIGHT KNEE 3 VIEWS 2119 INDICATION: Fall with knee injury, knee pain COMPARISON: None available. FINDINGS: No fractures or dislocation are seen. There probably is a small joint effusion. Prominent degenerative changes are seen most involving the patellofemoral and medial compartments. Moderate medial joint space narrowing is seen. Large medial osteophytes are noted. Cruciate ligament surgical changes are seen. Atherosclerotic changes are noted. Evidence of old infarction is seen in the proximal tibia. LEFT SHOULDER 3 VIEW(S) INDICATION / CLINICAL INFORMATION: Left shoulder pain COMPARISON: None available. FINDINGS: BONES / JOINT(S): Comminuted and displaced fracture of the left humeral neck extending into the greater tuberosity. No evidence of dislocation. Moderate glenohumeral and AC joint degenerative change. SOFT TISSUES: Soft tissue swelling surrounds fracture site. ADDITIONAL FINDINGS: None. - Medical Decision Making Patient is a 59-year-old male that presents emergency room with complaints of left shoulder pain and right knee pain after a fall. Patient sustained an abrasion to the right knee. Patient had x-ray of the right knee and the left shoulder. The right knee shows no fracture. The left shoulder x-ray shows a comminuted neck fracture of the humerus. Patient placed in a sling and swath. Patient stable for discharge. Prior to discharge I discussed the case with our orthopedist, Dr. Nix. Dr. Nix does not have any further recommendations are for him to follow-up in the office on Friday. Patient discharged home. - Differential Diagnosis Fracture, strain, contusion, sprain, fall Critical care attestation.: If time is entered above; I have spent that time in minutes in the direct care of this critically ill patient, excluding procedure time. ED Disposition Clinical Impression: Fall Qualifiers: Encounter type: initial encounter Qualified Code(s): W19.XXXA - Unspecified fall, initial encounter Left shoulder pain Qualifiers: Chronicity: acute Qualified Code(s): M25.512 - Pain in left shoulder Right knee pain Qualifiers: Chronicity: acute Qualified Code(s): M25.561 - Pain in right knee Knee contusion Qualifiers: Encounter type: initial encounter Laterality: right Qualified Code(s): S80.01XA - Contusion of right knee, initial encounter Humeral head fracture Qualifiers: Encounter type: initial encounter Fracture type: closed Laterality: left Qualified Code(s): S42.292A - Other displaced fracture of upper end of left humerus, initial encounter for closed fracture Disposition: TO HOME OR SELFCARE Is pt being admited?: No Does the pt Need Aspirin: No Condition: Stable Instructions: Arm Fracture in Adults (ED), Contusion in Adults (ED) Additional Instructions: Patient to follow-up with primary care in 2 to 3 days. Patient to follow-up with Orthopedist in 2 to 3 days. Patient to rest. Patient to increase water. Patient to avoid strenuous exercise or heavy lifting until cleared by Orthopedist. patient to take Tylenol or ibuprofen as needed for pain. Patient to keep left upper extremity in sling until cleared by orthopedist. Patient to take meds as directed. Patient to return to the ER if condition worsens, changes or new symptoms arise. Prescriptions: oxyCODONE /ACETAMINOPHEN [Percocet 5/325 mg] 1 tab PO Q6H PRN #20 tablet PRN Reason: Pain, Moderate (4-6) Referrals: PRIMARY CARE, [Primary Care Provider] - 2-3 Days APARNA NIX MD [Staff Physician] - 2-3 Days Time of Disposition: 22:38
--- NOTE | 2020-06-23 22:06 | XRay Report ---
RIGHT KNEE 3 VIEWS 2119 INDICATION: Fall with knee injury, knee pain COMPARISON: None available. FINDINGS: No fractures or dislocation are seen. There probably is a small joint effusion. Prominent d egenerative changes are seen most involving the patellofemoral and medial compartments. Moderate medi al joint space narrowing is seen. Large medial osteophytes are noted. Cruciate ligament surgical becker ges are seen. Atherosclerotic changes are noted. Evidence of old infarction is seen in the proximal t ibia. Signer Name: Roberto Salcedo MD Signed: 06/23/2020 10:01 PM Workstation Name: [id number]
== END 2020-06-23 23:27 | disposition home or self-care (01) ==
LOC: ED 20:23
DX: S42.292A Other displaced fracture of upper end of left humerus, initial encounter for closed fracture (principal); S80.01XA Contusion of right knee, initial encounter; M25.512 Pain in left shoulder; I10 Essential (primary) hypertension; Z79.899 Other long term (current) drug therapy; Z86.73 Personal history of transient ischemic attack (TIA), and cerebral infarction without residual deficits; Z90.49 Acquired absence of other specified parts of digestive tract; Z98.890 Other specified postprocedural states; W01.0XXA Fall on same level from slipping, tripping and stumbling without subsequent striking against object, initial encounter; Y93.89 Activity, other specified; Y92.009 Unspecified place in unspecified non-institutional (private) residence as the place of occurrence of the external cause; Y99.8 Other external cause status
CPT/HCPCS: 29240; 73030; 73562; 96374; 96375; 99284; J1170; J2405

== ENCOUNTER 2020-11-28 11:04 | Emergency (ER) | payer MEDICAID ==
[2020-11-28] MEDS ORDERED: HYDROcodone/ACETAMINOPHEN 10-325MG TAB PO ONE (12:23)
[2020-11-28] MEDS ORDERED: ONDANSETRON 4 MG ODT TAB PO ONE (12:23)
--- NOTE | 2020-11-28 13:28 | Emergency Department Report ---
ED General Adult HPI - General Chief complaint: Fall Stated complaint: RIGHT KNEE, SHOULDER PAIN Time Seen by Provider: 11/28/20 11:49 Source: patient Mode of arrival: Stretcher Limitations: No Limitations - History of Present Illness Initial comments: The patient presents to the emergency department the chief complaint of right knee and right shoulder pain. Patient states yesterday he fell onto a grassy surface and woke up this morning with significant right shoulder and right knee pain. Patient denies hitting his head or loss of consciousness. Patient has no other complaints. Denies chest pain, shortness breath, abdominal pain. -: Sudden Location: upper extremity, lower extremity Severity scale (0 -10): 6 Quality: sharp Consistency: constant Improves with: rest Worsens with: movement Associated Symptoms: denies other symptoms Treatments Prior to Arrival: none - Related Data Previous Rx's Medication Instructions Recorded Last Taken Type AtorvaSTATin [Lipitor] 40 mg PO QHS #30 tablet 12/31/17 Unknown Rx Clopidogrel [Plavix] 75 mg PO QDAY #30 tablet 12/31/17 Unknown Rx Doxazosin Mesylate [Cardura] 2 mg PO QPM #30 tablet 12/31/17 Unknown Rx Lisinopril [Zestril] 40 mg PO QDAY #30 tablet 12/31/17 Unknown Rx amLODIPine 10 mg PO QDAY #30 tablet 12/31/17 Unknown Rx oxyCODONE /ACETAMINOPHEN [Percocet 1 tab PO Q6H PRN #20 tablet 06/23/20 Unknown Rx 5/325 mg] HYDROcodone/APAP 7.5-325 [[place] 1 each PO Q6HR PRN #15 tablet 11/28/20 Unknown Rx 7.5/325] Allergies Allergy/AdvReac Type Severity Reaction Status Date / Time No Known Allergies Allergy Verified 11/28/20 11:19 ED Review of Systems ROS: Stated complaint: RIGHT KNEE, SHOULDER PAIN Other details as noted in HPI Comment: All other systems reviewed and negative Constitutional: denies: chills, fever Eyes: denies: eye pain, eye discharge, vision change ENT: denies: ear pain, throat pain Respiratory: denies: cough, shortness of breath, wheezing Cardiovascular: denies: chest pain, palpitations Endocrine: no symptoms reported Gastrointestinal: denies: abdominal pain, nausea, diarrhea Genitourinary: denies: urgency, dysuria Musculoskeletal: denies: back pain, joint swelling, arthralgia Skin: denies: rash, lesions Neurological: denies: headache, weakness, paresthesias Psychiatric: denies: anxiety, depression Hematological/Lymphatic: denies: easy bleeding, easy bruising ED Past Medical Hx - Past Medical History Hx Hypertension: Yes Hx CVA: Yes Hx Diabetes: Yes Hx Asthma: Yes - Surgical History Hx Cholecystectomy: Yes Hx Appendectomy: Yes Additional Surgical History: Bilateral hip repair, just of the abdomen. Colosto my with reversal - Social History Smoking Status: Never Smoker - Medications Home Medications: Home Medications Medication Instructions Recorded Confirmed Last Taken Type AtorvaSTATin [Lipitor] 40 mg PO QHS #30 tablet 12/31/17 11/28/20 Unknown Rx Clopidogrel [Plavix] 75 mg PO QDAY #30 tablet 12/31/17 11/28/20 Unknown Rx Doxazosin Mesylate [Cardura] 2 mg PO QPM #30 tablet 12/31/17 11/28/20 Unknown Rx Lisinopril [Zestril] 40 mg PO QDAY #30 tablet 12/31/17 11/28/20 Unknown Rx amLODIPine 10 mg PO QDAY #30 tablet 12/31/17 11/28/20 Unknown Rx oxyCODONE /ACETAMINOPHEN [Percocet 1 tab PO Q6H PRN #20 tablet 06/23/20 11/28/20 Unknown Rx 5/325 mg] HYDROcodone/APAP 7.5-325 [[place] 1 each PO Q6HR PRN #15 tablet 11/28/20 Unknown Rx 7.5/325] ED Physical Exam - General Limitations: No Limitations General appearance: alert, in no apparent distress - Head Head exam: Present: atraumatic, normocephalic - Eye Eye exam: Present: normal appearance, PERRL, EOMI - ENT ENT exam: Present: mucous membranes moist - Neck Neck exam: Present: normal inspection - Respiratory Respiratory exam: Present: normal lung sounds bilaterally. Absent: respiratory distress - Cardiovascular Cardiovascular Exam: Present: normal rhythm, tachycardia. Absent: systolic murmur, diastolic murmur, rubs, gallop - GI/Abdominal GI/Abdominal exam: Present: soft, normal bowel sounds. Absent: distended, tenderness - Rectal Rectal exam: Present: deferred - Extremities Exam Extremities exam: Present: joint swelling (There is effusion to the right knee), other (Tender to palpation of the right patella; patient has tenderness to palpation of the superior humeral head) - Back Exam Back exam: Present: normal inspection - Neurological Exam Neurological exam: Present: alert, oriented X3 - Psychiatric Psychiatric exam: Present: normal affect, normal mood - Skin Skin exam: Present: warm, dry, intact, normal color. Absent: rash ED Course Vital Signs 11/28/20 11/28/20 11/28/20 11:14 11:19 12:30 Temperature 98.6 F Pulse Rate 127 H 125 H 123 H Respiratory 16 16 16 Rate Blood Pressure 200/113 Blood Pressure 188/117 [Right] O2 Sat by Pulse 97 98 Oximetry 11/28/20 11/28/20 14:23 15:02 Temperature Pulse Rate 122 H 117 H Respiratory 18 Rate Blood Pressure 216/131 Blood Pressure 215/127 [Right] O2 Sat by Pulse 99 Oximetry - Joint Aspiration/Injection Consent Obtained: verbal consent Time Out Performed: Yes Indications: to relieve pressure/pain Side of Body: right Joint Aspirated: knee Ultrasound Guidance: No Skin Prep: Povidone-Iodine1% Local Anesthesia Used: other (And bupivacaine 0.5%) Amount of Anesthesia Used (mls): 15 Needle Size Used: 22G Syringe Size Used: Other (12 cc's) Total Fluid Obtained (mls): 60 (Serosanguineous) Patient Tolerated Procedure: well Complications: none ED Medical Decision Making - Radiology Data Radiology results: report reviewed - Medical Decision Making Patient had improvement of symptoms with drainage from the right knee Tez bandage applied to right knee Critical care attestation.: If time is entered above; I have spent that time in minutes in the direct care of this critically ill patient, excluding procedure time. ED Disposition Clinical Impression: Effusion, right knee, Right shoulder pain, Osteoarthritis Disposition: - TO HOME OR SELFCARE Is pt being admited?: No Does the pt Need Aspirin: No Condition: Stable Instructions: Shoulder Pain, Knee Effusion, [id number], Osteoarthritis Additional Instructions: return if worse Referrals: PRIMARY CARE, [Primary Care Provider] - 3-5 Days ROBERT CHANEY MD [Staff Physician] - 3-5 Days Time of Disposition: 15:52
--- NOTE | 2020-11-28 13:49 | XRay Report ---
RIGHT SHOULDER 3 VIEWS INDICATION / CLINICAL INFORMATION: Right shoulder pain after fall. COMPARISON: None available. FINDINGS: BONES and JOINT(S): No acute fracture or subluxation. Moderate osteoarthritis is noted along the AC j oint. The glenohumeral joint is maintained. SOFT TISSUES: No significant abnormality. ADDITIONAL FINDINGS: None. IMPRESSION: 1. No acute findings. 2. Moderate right AC joint osteoarthritis. Signer Name: Georges Mirza MD Signed: 11/28/2020 1:45 PM Workstation Name: [email or web address]
--- NOTE | 2020-11-28 13:57 | XRay Report ---
Right knee 2 views INDICATION: Fall, pain FINDINGS: There is severe tricompartmental degenerative osteoarthrosis with significant joint space n arrowing the medial compartment and patellofemoral joint. Diffuse swelling anterior knee with joint e ffusion. Signer Name: Tato Evangelista MD Signed: 11/28/2020 1:52 PM Workstation Name: [email or web address] [id number]
[2020-11-28] MEDS ORDERED: BUPIVACAINE/PF (0.5%) 5 MG/1 ML 10 ML VIAL INFILTRATI ONE (14:32)
[2020-11-28] MEDS ORDERED: LIDOCAINE (1%) 10 MG/1 ML VIAL 20 ML MDV INFILTRATI ONE (14:32)
[2020-11-28] MEDS ORDERED: amLODIPine 5 MG TAB PO ONE (15:00)
[2020-11-28] MEDS ORDERED: LISINOPRIL 20 MG TAB PO ONE (15:01)
[2020-11-28 16:24] VITALS: BP 201/116
== END 2020-11-28 16:24 | disposition home or self-care (01) ==
LOC: ED 11:04
DX: M25.461 Effusion, right knee (principal); M19.011 Primary osteoarthritis, right shoulder; I10 Essential (primary) hypertension; E11.9 Type 2 diabetes mellitus without complications; J45.909 Unspecified asthma, uncomplicated; Z90.49 Acquired absence of other specified parts of digestive tract; Z98.890 Other specified postprocedural states; Z79.899 Other long term (current) drug therapy
CPT/HCPCS: Q0162

== ENCOUNTER 2021-02-08 11:14 | Inpatient (IN) | payer MEDICAID ==
[2021-02-08] MEDS ORDERED: ASPIRIN 325 MG TAB PO ONE (11:43)
[2021-02-08 12:40] LABS: Hematocrit 21.9 % (35.5-45.6); Hemoglobin 6.3 gm/dl (11.8-15.2); Mean Corpuscular HGB Conc 29 % (32-34); Platelet Count 446 K/mm3 (140-440); Red Blood Count 4.26 M/mm3 (3.65-5.03)
--- NOTE | 2021-02-08 12:51 | XRay Report ---
CHEST 2 VIEWS INDICATION / CLINICAL INFORMATION: chest pain. COMPARISON: None available. FINDINGS: SUPPORT DEVICES: None. HEART / MEDIASTINUM: No significant abnormality. LUNGS / PLEURA: Clear lungs. No significant pleural effusion. No pneumothorax. ADDITIONAL FINDINGS: Multiple old right rib fractures are noted. No other significant findings. IMPRESSION: 1. No acute abnormality of the chest. Signer Name: Georges Mirza MD Signed: 02/08/2021 12:47 PM Workstation Name: [email or web address] [id number]
[2021-02-08 12:52] LABS: Mean Corpuscular Volume 51 fl (84-94); Red Cell Distribution Width 20.9 % (13.2-15.2)
[2021-02-08 12:58] LABS: Alanine Aminotransferase 5 units/L (7-56); Albumin 3.7 g/dL (3.9-5); BUN/Creatinine Ratio 7; Blood Urea Nitrogen 17 mg/dL (9-20); Calcium 9.1 mg/dL (8.4-10.2); Hemolysis Index 0
[2021-02-08 14:15] LABS: Anisocytosis 1+; Hypochromasia 3+; Platelet Estimate Consistent w Auto; Total Cells Counted 100
[2021-02-08] MEDS ORDERED: HYDROcodone/ACETAMINOPHEN 5-325 MG TAB PO ONE (19:39)
--- NOTE | 2021-02-08 19:58 | History and Physical Report ---
History of Present Illness Chief complaint: My chest hurts, and im a little short of breath History of present illness: 60 YO Male with CVA, OA, HTN, HLD, Asthma, Obesity presents to ED for evaluation. Patient states "my chest hurts a little and I am a little short of breath". Patient states that he has experienced chest discomfort and shortness of breath over the past 2 days with worsening symptoms over the past 1 day. Patient states that pain is 8/10, intermittent, not worsened with exertion, not relieved with rest. Patient denies any generalized weakness. Patient also reports 20 pound weight loss over the past 1 month. Patient transported to [facility] via private vehicle for further care and evaluation of the aforementioned symptoms. The patient was seen and evaluated in the emergency department. All lab and imaging studies reviewed. Patient found to have symptomatic anemia secondary to hemoglobin of six. Patient found to have systemic inflammatory response syndrome complicated by acute kidney injury with acute tubular necrosis, as well as uncontrolled hypertension. Patient admitted to medical floor and initiated on IV antibiotic therapy as well as chest pain protocol. D- dimer is ordered and is pending at time of admission. VQ scan was also ordered and pending at time of admission. Patient denies fever, chills, palpitation, productive cough, skin rash, recent ill contacts, unilateral leg swelling, calf pain, individual/family history of DVT/PE/bleeding/blood clotting disorders, prolonged travel. Prior admission on 12/23/2017 reviewed. All medication listed at time of admission has been reconciled. Advanced care planning conducted in ED. Past History Past Medical History: arthritis, hypertension, hyperlipidemia, stroke, other (See HPI) Past Surgical History: appendectomy, cholecystectomy, total hip replacement, bowel surgery Social history: single. denies: smoking, alcohol abuse, prescription drug abuse Family history: diabetes, hypertension Medications and Allergies Allergies Allergy/AdvReac Type Severity Reaction Status Date / Time No Known Allergies Allergy Verified 11/28/20 11:19 Home Medications Medication Instructions Recorded Confirmed Last Taken Type AtorvaSTATin [Lipitor] 40 mg PO QHS #30 tablet 12/31/17 11/28/20 Unknown Rx Clopidogrel [Plavix] 75 mg PO QDAY #30 tablet 12/31/17 11/28/20 Unknown Rx Doxazosin Mesylate [Cardura] 2 mg PO QPM #30 tablet 12/31/17 11/28/20 Unknown Rx Lisinopril [Zestril] 40 mg PO QDAY #30 tablet 12/31/17 11/28/20 Unknown Rx amLODIPine 10 mg PO QDAY #30 tablet 12/31/17 11/28/20 Unknown Rx oxyCODONE /ACETAMINOPHEN [Percocet 1 tab PO Q6H PRN #20 tablet 06/23/20 11/28/20 Unknown Rx 5/325 mg] HYDROcodone/APAP 7.5-325 [[place] 1 each PO Q6HR PRN #15 tablet 11/28/20 Unknown Rx 7.5/325] Review of Systems Constitutional: weight loss, weakness, no fever, no chills Ears, nose, mouth and throat: no ear pain, no ear discharge, no tinnitis, no decreased hearing, no nasal congestion, no sinus pressure Cardiovascular: chest pain, no orthopnea, no palpitations, no edema Respiratory: no cough, no cough with sputum, no hemoptysis Gastrointestinal: no abdominal pain, no nausea, no vomiting, no diarrhea Genitourinary Male: no hematuria, no flank pain, no discharge, no urinary frequency, no urinary hesitancy Rectal: no pain, no incontinence, no bleeding Musculoskeletal: no neck stiffness, no neck pain, no arm numbness/tingling, no low back pain, no shooting leg pain Integumentary: no rash, no pruritis, no redness, no sores, no jaundice, no boils Neurological: no transient paralysis, no paralysis, no weakness, no parathesias, no tingling, no seizures Psychiatric: no anxiety, no memory loss, no insomnia, no hypersomnia, no change in appetite, no change in libido, no suicidal ideation, no hallucinations Endocrine: no cold intolerance, no excessive thirst, no nocturia, no flushing Hematologic/Lymphatic: no easy bruising, no easy bleeding, no lymphadenopathy, no lymphedema Allergic/Immunologic: no anaphylaxis, no angioedema Exam - Constitutional Vitals: Temp Pulse Resp BP Pulse Ox 98.4 F 94 H 15 179/96 100 02/08/21 11:45 02/08/21 11:45 02/08/21 11:45 02/08/21 11:45 02/08/21 11:45 General appearance: Present: mild distress - EENT Eyes: Present: PERRL ENT: hearing intact, clear oral mucosa - Neck Neck: Present: supple, normal ROM - Respiratory Respiratory effort: normal Respiratory: bilateral: CTA - Cardiovascular Heart Sounds: Present: S1 & S2. Absent: rub, click - Extremities Extremities: pulses symmetrical, No edema Peripheral Pulses: within normal limits - Abdominal General gastrointestinal: Present: soft, non-tender, non-distended, normal bowel sounds Male genitourinary: Present: normal - Integumentary Integumentary: Present: clear, warm, dry - Musculoskeletal Musculoskeletal: gait normal, strength equal bilaterally - Psychiatric Psychiatric: appropriate mood/affect, intact judgment & insight - Neurologic Neurologic: CNII-XII intact, moves all extremities HEART Score - HEART Score Troponin: Troponin T < 0.010 ng/mL (0.00-0.029) 02/08/21 17:26 Results - Labs CBC & Chem 7: 02/08/21 12:15 02/08/21 12:15 Labs: Abnormal lab results 02/08/21 02/08/21 Range/Units 12:15 12:15 WBC 12.9 H (4.5-11.0) K/mm3 Hgb 6.3 L (11.8-15.2) gm/dl Hct 21.9 L (35.5-45.6) % MCV 51 L (84-94) fl MCH 15 L (28-32) pg MCHC 29 L (32-34) % RDW 20.9 H (13.2-15.2) % Plt Count 446 H (140-440) K/mm3 Lymphocytes % (Manual) 11.0 L (13.4-35.0) % Eosinophils % (Manual) 15.0 H (0.0-4.3) % Basophils % (Manual) 3.0 H (0.0-1.8) % Seg Neutrophils # Man 8.6 H (1.8-7.7) K/mm3 Eosinophils # (Manual) 1.9 H (0.0-0.4) K/mm3 Basophils # (Manual) 0.4 H (0.0-0.1) K/mm3 Sodium 134 L (137-145) mmol/L Creatinine 2.4 H (0.8-1.3) mg/dL ALT 5 L (7-56) units/L Total Protein 8.4 H (6.3-8.2) g/dL Albumin 3.7 L (3.9-5) g/dL Assessment and Plan - Patient Problems (1) Systemic inflammatory response syndrome Current Visit: Yes Status: Acute Plan to address problem: CBC, CMP, IV antibiotic therapy, supplemental oxygen, supportive care, repeat CBC in a.m. Chest x-ray, urinalysis. (2) Acute kidney injury ([place]) with acute tubular necrosis (ATN) Current Visit: Yes Status: Acute Plan to address problem: IV fluid resuscitation therapy, monitor urine output every shift, BMP, repeat BMP in a.m. to monitor serum creatinine as well as GFR. (3) Symptomatic anemia Current Visit: Yes Status: Acute Plan to address problem: Packed red blood cell transfusion, iron replacement therapy, patient is Hemoccult negative. Patient counseled regarding need for outpatient colonoscopy to evaluate for GI malignancy. (4) Accelerated hypertension Current Visit: Yes Status: Acute Plan to address problem: Monitor blood pressure every shift, continue medical management. (5) Obesity (BMI 30.0-34.9) Current Visit: Yes Status: Acute Plan to address problem: Patient counseled regarding balanced diet, increase physical activity discharge. +15 minutes. (6) DVT prophylaxis Current Visit: No Status: Acute Plan to address problem: SCDs bilateral lower extremities while in bed, patient is ambulatory (7) Advance care planning Current Visit: Yes Status: Acute Plan to address problem: Disease education conducted, care plan discussed, diagnosis discussed, prognosis discussed, patient is full code, patient knowledges understanding and agreement with care plan, +30 minutes.
[2021-02-08] MEDS ORDERED: ONDANSETRON 4 MG/2 ML INJ IV PRN (20:00)
[2021-02-08] MEDS ORDERED: ALBUTEROL 2.5 MG/3 ML NEBU IH PRN (20:00)
[2021-02-08] MEDS ORDERED: ACETAMINOPHEN 325 MG TAB PO PRN ×2 (20:00→20:38)
[2021-02-08] MEDS ORDERED: SODIUM CHLORIDE 0.9% 500 ML 500 ML IV NR (20:03)
--- NOTE | 2021-02-08 20:30 | Emergency Department Report ---
ED Chest Pain HPI - General Chief Complaint: Chest Pain Stated Complaint: RT KNEE PAINS Time Seen by Provider: 02/08/21 19:34 Source: patient Mode of arrival: Ambulatory Limitations: No Limitations - History of Present Illness Initial Comments: Patient is a 60-year-old F [place] male with a past medical history of hypertension diabetes and arthritis in his knees who is presenting with multiple complaints. Patient's main complaint is chest pain. States a heavy sensation in his chest mostly with any type of movement. Mild shortness of breath. [place] g[place] chest pain started yesterday. He also is complaining of some chronic lower back pain and chronic pain in his right knee. States his knee is swollen has been swelling for approximately a month. He has had arthrocentesis done but the swelling has persisted. He denies any cough cold congestion fevers chills nausea vomiting. Patient states he is having regular bowel movements and there has been some darkness to his bowel movements but has not noticed blood in his stool. Severity scale (0 -10): 8 - Related Data Previous Rx's Medication Instructions Recorded Last Taken Type AtorvaSTATin [Lipitor] 40 mg PO QHS #30 tablet 12/31/17 Unknown Rx Clopidogrel [Plavix] 75 mg PO QDAY #30 tablet 12/31/17 Unknown Rx Doxazosin Mesylate [Cardura] 2 mg PO QPM #30 tablet 12/31/17 Unknown Rx Lisinopril [Zestril] 40 mg PO QDAY #30 tablet 12/31/17 Unknown Rx amLODIPine 10 mg PO QDAY #30 tablet 12/31/17 Unknown Rx oxyCODONE /ACETAMINOPHEN [Percocet 1 tab PO Q6H PRN #20 tablet 06/23/20 Unknown Rx 5/325 mg] HYDROcodone/APAP 7.5-325 [[place] 1 each PO Q6HR PRN #15 tablet 11/28/20 Unknown Rx 7.5/325] Allergies Allergy/AdvReac Type Severity Reaction Status Date / Time No Known Allergies Allergy Verified 11/28/20 11:19 Heart Score - HEART Score History: Slightly suspicious EKG: Non-specific Age: 45-65 Risk factors: 1-2 risk factors Troponin: < normal limit HEART Score: 3 - EKG Read Time Time EKG Completed: 11:47 EKG Read Time: 11:53 ED Review of Systems ROS: Stated complaint: RT KNEE PAINS Other details as noted in HPI Comment: All other systems reviewed and negative ED Past Medical Hx - Past Medical History Previous Medical History?: Yes Hx Hypertension: Yes Hx CVA: Yes Hx Diabetes: Yes Hx Asthma: Yes - Surgical History Past Surgical History?: Yes Hx Cholecystectomy: Yes Hx Appendectomy: Yes Additional Surgical History: Bilateral hip repair, just of the abdomen. Colostomy with reversal - Social History Smoking Status: Never Smoker Substance Use Type: None - Medications Home Medications: Home Medications Medication Instructions Recorded Confirmed Last Taken Type AtorvaSTATin [Lipitor] 40 mg PO QHS #30 tablet 12/31/17 11/28/20 Unknown Rx Clopidogrel [Plavix] 75 mg PO QDAY #30 tablet 12/31/17 11/28/20 Unknown Rx Doxazosin Mesylate [Cardura] 2 mg PO QPM #30 tablet 12/31/17 11/28/20 Unknown Rx Lisinopril [Zestril] 40 mg PO QDAY #30 tablet 12/31/17 11/28/20 Unknown Rx amLODIPine 10 mg PO QDAY #30 tablet 12/31/17 11/28/20 Unknown Rx oxyCODONE /ACETAMINOPHEN [Percocet 1 tab PO Q6H PRN #20 tablet 06/23/20 11/28/20 Unknown Rx 5/325 mg] HYDROcodone/APAP 7.5-325 [[place] 1 each PO Q6HR PRN #15 tablet 11/28/20 Unknown Rx 7.5/325] ED Physical Exam - General Limitations: No Limitations General appearance: alert, in no apparent distress - Head Head exam: Present: atraumatic, normocephalic - Eye Eye exam: Present: normal appearance - ENT ENT exam: Present: mucous membranes moist - Neck Neck exam: Present: normal inspection - Respiratory Respiratory exam: Present: normal lung sounds bilaterally. Absent: respiratory distress, wheezes, rales, rhonchi - Cardiovascular Cardiovascular Exam: Present: regular rate, normal rhythm. Absent: systolic murmur, diastolic murmur, rubs, gallop - GI/Abdominal GI/Abdominal exam: Present: soft, normal bowel sounds. Absent: distended, tenderness, guarding, rebound - Rectal Rectal exam: Present: normal inspection, heme (-) stool - Extremities Exam Extremities exam: Present: normal inspection - Back Exam Back exam: Present: normal inspection - Neurological Exam Neurological exam: Present: alert, oriented X3 - Psychiatric Psychiatric exam: Present: normal affect, normal mood - Skin Skin exam: Present: warm, dry, intact, normal color. Absent: rash ED Course Vital Signs 02/08/21 11:45 Temperature 98.4 F Pulse Rate 94 H Respiratory 15 Rate Blood Pressure 179/96 O2 Sat by Pulse 100 Oximetry PASCUAL score - Pascual Score Age > 65: (0) No Aspirin use within the Past 7 Days: (0) No 3 or more CAD Risk Factors: (0) No 2 or more Angina events in past 24 hrs: (1) Yes Known CAD with more than 50% Stenosis: (0) No Elevated Cardiac Markers: (0) No ST Deviation Greater than 0.5mm: (0) No PASCUAL Score: 1 ED Medical Decision Making - Lab Data Result diagrams: 02/08/21 12:15 02/08/21 12:15 Lab Results 02/08/21 02/08/21 02/08/21 Range/Units 12:15 12:15 15:04 WBC 12.9 H (4.5-11.0) K/mm3 RBC 4.26 (3.65-5.03) M/mm3 Hgb 6.3 L (11.8-15.2) gm/dl Hct 21.9 L (35.5-45.6) % MCV 51 L (84-94) fl MCH 15 L (28-32) pg MCHC 29 L (32-34) % RDW 20.9 H (13.2-15.2) % Plt Count 446 H (140-440) K/mm3 Eos % (Auto) Cost Recorder Lymph # (Auto) Cost Recorder Add Manual Diff Complete Total Counted 100 Seg Neuts % (Manual) 67.0 (40.0-70.0) % Lymphocytes % (Manual) 11.0 L (13.4-35.0) % Monocytes % (Manual) 4.0 (0.0-7.3) % Eosinophils % (Manual) 15.0 H (0.0-4.3) % Basophils % (Manual) 3.0 H (0.0-1.8) % Nucleated RBC % Not Reportable Seg Neutrophils # Man 8.6 H (1.8-7.7) K/mm3 Band Neutrophils # 0.0 K/mm3 Lymphocytes # (Manual) 1.4 (1.2-5.4) K/mm3 Abs React Lymphs (Man) 0.0 K/mm3 Monocytes # (Manual) 0.5 (0.0-0.8) K/mm3 Eosinophils # (Manual) 1.9 H (0.0-0.4) K/mm3 Basophils # (Manual) 0.4 H (0.0-0.1) K/mm3 Metamyelocytes # 0.0 K/mm3 Myelocytes # 0.0 K/mm3 Promyelocytes # 0.0 K/mm3 Blast Cells # 0.0 K/mm3 WBC Morphology Not Reportable Hypersegmented Neuts Not Reportable Hyposegmented Neuts Not Reportable Hypogranular Neuts Not Reportable Smudge Cells Not Reportable Toxic Granulation Not Reportable Toxic Vacuolation Not Reportable Dohle Bodies Not Reportable Pelger-Huet Anomaly Not Reportable Ricci Rods Not Reportable Platelet Estimate Consistent w auto Clumped Platelets Not Reportable Plt Clumps, EDTA Not Reportable Large Platelets Not Reportable Giant Platelets Not Reportable Platelet Satelliting Not Reportable Plt Morphology Comment Not Reportable RBC Morphology Not Reportable Dimorphic RBCs Not Reportable Polychromasia Few Hypochromasia 3+ Poikilocytosis Not Reportable Anisocytosis 1+ Microcytosis 2+ Macrocytosis Not Reportable Spherocytes Not Reportable Pappenheimer Bodies Not Reportable Sickle Cells Not Reportable Target Cells Not Reportable Tear Drop Cells Not Reportable Ovalocytes Not Reportable Helmet Cells Not Reportable Villa-Gause Bodies Not Reportable Garfield Rings Not Reportable [place] Cells Not Reportable Bite Cells Not Reportable Crenated Cell Not Reportable Elliptocytes Not Reportable Acanthocytes (Spur) Not Reportable Rouleaux Not Reportable Hemoglobin C Crystals Not Reportable Schistocytes Not Reportable Malaria parasites Not Reportable Lavelle Bodies Not Reportable Hem Pathologist Commnt No Sodium 134 L (137-145) mmol/L Potassium 4.5 (3.6-5.0) mmol/L Chloride 98.9 (98-107) mmol/L Carbon Dioxide 25 (22-30) mmol/L Anion Gap 15 mmol/L BUN 17 (9-20) mg/dL Creatinine 2.4 H (0.8-1.3) mg/dL Estimated GFR 33 ml/min BUN/Creatinine Ratio 7 % Glucose 90 (75-100) mg/dL Calcium 9.1 (8.4-10.2) mg/dL Total Bilirubin 0.20 (0.1-1.2) mg/dL AST 11 (5-40) units/L ALT 5 L (7-56) units/L Alkaline Phosphatase 106 (35-129) units/L Troponin T < 0.010 < 0.010 (0.00-0.029) ng/mL Total Protein 8.4 H (6.3-8.2) g/dL Albumin 3.7 L (3.9-5) g/dL Albumin/Globulin Ratio 0.8 % 02/08/21 Range/Units 17:26 WBC (4.5-11.0) K/mm3 RBC (3.65-5.03) M/mm3 Hgb (11.8-15.2) gm/dl Hct (35.5-45.6) % MCV (84-94) fl MCH (28-32) pg MCHC (32-34) % RDW (13.2-15.2) % Plt Count (140-440) K/mm3 Eos % (Auto) Lymph # (Auto) Add Manual Diff Total Counted Seg Neuts % (Manual) (40.0-70.0) % Lymphocytes % (Manual) (13.4-35.0) % Monocytes % (Manual) (0.0-7.3) % Eosinophils % (Manual) (0.0-4.3) % Basophils % (Manual) (0.0-1.8) % Nucleated RBC % Seg Neutrophils # Man (1.8-7.7) K/mm3 Band Neutrophils # K/mm3 Lymphocytes # (Manual) (1.2-5.4) K/mm3 Abs React Lymphs (Man) K/mm3 Monocytes # (Manual) (0.0-0.8) K/mm3 Eosinophils # (Manual) (0.0-0.4) K/mm3 Basophils # (Manual) (0.0-0.1) K/mm3 Metamyelocytes # K/mm3 Myelocytes # K/mm3 Promyelocytes # K/mm3 Blast Cells # K/mm3 WBC Morphology Hypersegmented Neuts Hyposegmented Neuts Hypogranular Neuts Smudge Cells Toxic Granulation Toxic Vacuolation Dohle Bodies Pelger-Huet Anomaly Ricci Rods Platelet Estimate Clumped Platelets Plt Clumps, EDTA Large Platelets Giant Platelets Platelet Satelliting Plt Morphology Comment RBC Morphology Dimorphic RBCs Polychromasia Hypochromasia Poikilocytosis Anisocytosis Microcytosis Macrocytosis Spherocytes Pappenheimer Bodies Sickle Cells Target Cells Tear Drop Cells Ovalocytes Helmet Cells Villa-Gause Bodies [place]field Rings [place] Cells Bite Cells Crenated Cell Elliptocytes Acanthocytes (Spur) Rouleaux Hemoglobin C Crystals Schistocytes Malaria parasites Lavelle Bodies Hem Pathologist Commnt Sodium (137-145) mmol/L Potassium (3.6-5.0) mmol/L Chloride (98-107) mmol/L Carbon Dioxide (22-30) mmol/L Anion Gap mmol/L BUN (9-20) mg/dL Creatinine (0.8-1.3) mg/dL Estimated GFR ml/min BUN/Creatinine Ratio % Glucose (75-100) mg/dL Calcium (8.4-10.2) mg/dL Total Bilirubin (0.1-1.2) mg/dL AST (5-40) units/L ALT (7-56) units/L Alkaline Phosphatase (35-129) units/L Troponin T < 0.010 (0.00-0.029) ng/mL Total Protein (6.3-8.2) g/dL Albumin (3.9-5) g/dL Albumin/Globulin Ratio % - EKG Data -: EKG Interpreted by Pa - EKG Data 02/08/21 20:30 EKG shows sinus rhythm rate of 91. [place] is normal intervals are normal. No ST segment elevations or depressions. There are Q waves in V1 through V3. Time interpretation 1153 - Radiology Data [facility] [address] [place] [address] XRay Report Signed Patient: WHITLEY ARCHULETA MR#: [id number] : 1960 Acct:[id number] Age/Sex: 60 / M ADM Date: 02/08/21 Loc: ED Attending Dr: Ordering Physician: LUCIA HAQUE MD Date of Service: 02/08/21 Procedure(s): XR chest routine 2V Accession Number(s): [id number] cc: ED MD [place]AR[place] Fluoro Time In Minutes: CHEST 2 VIEWS INDICATION / CLINICAL INFORMATION: chest pain. COMPARISON: None available. FINDINGS: SUPPORT DEVICES: None. HEART / MEDIASTINUM: No significant abnormality. LUNGS / PLEURA: Clear lungs. No significant pleural effusion. No pneumothorax. ADDITIONAL FINDINGS: Multiple old right rib fractures are noted. No other significant findings. IMPRESSION: 1. No acute abnormality of the chest. Signer Name: Georges Mirza MD Signed: 02/08/2021 12:47 PM Workstation Name: [id number] - Medical Decision Making Patient with a significant drop of his hemoglobin from his baseline. Last hemoglobin seen in our system was in 2018 but they were well above the 6.3 that he is now. Patient is chest pain likely because of the low hemoglobin. Patient to be admitted to the hospitalist service for further management. Blood transfusion has been ordered. Critical care attestation.: If time is entered above; I have spent that time in minutes in the direct care of this critically ill patient, excluding procedure time. ED Disposition Clinical Impression: Symptomatic anemia Chest pain Qualifiers: Chest pain type: unspecified Qualified Code(s): R07.9 - Chest pain, unspecified Arthralgia Qualifiers: Joint pain location: knee Laterality: right Qualified Code(s): M25.561 - Pain in right knee Disposition: DC-09 OP ADMIT IP TO THIS HOSP Is pt being admited?: Yes Does the pt Need Aspirin: No Condition: Stable Referrals: PRIMARY CARE, [Primary Care Provider] - 3-5 Days Time of Disposition: 20:34
[2021-02-08] MEDS ORDERED: traMADol 50 MG TAB PO PRN (20:38)
[2021-02-08] MEDS: cefTRIAXone/NS 1 GM/50 ML 1 GM/50 ML BAG IV SCH (21:03)
[2021-02-08 21:44] LABS: Chol/HDL Ratio 4.64 %
[2021-02-09] MEDS: HYDROcodone/ACETAMINOPHEN 7.5-325MG TAB PO PRN ×3 (00:05→21:11)
[2021-02-09] MEDS: FERROUS SULFATE 325 MG TAB PO SCH ×3 (00:05→21:11)
[2021-02-09 02:00] LABS: Mucus,Urine FEW /HPF
[2021-02-09 02:01] LABS: Bilirubin,Urine NEG (Negative); Blood,Urine NEG (Negative); Color,Urine Yellow (Yellow); Protein,Urine <15 mg/dL mg/dL (Negative); Urobilinogen,Urine < 2.0 mg/dL (<2.0)
[2021-02-09] MEDS ORDERED: hydrALAZINE 20 MG/1 ML INJ IV PRN ×2 (02:57→12:00)
--- NOTE | 2021-02-09 08:02 | Nuclear Medicine Report ---
NUCLEAR MEDICINE PERFUSION LUNG SCAN INDICATION / CLINICAL INFORMATION: chest pain. TECHNIQUE: 5. mCi of Tc-99m MAA were given by IV. COMPARISON: Chest radiograph dated 02/08/2021. FINDINGS: PERFUSION: Moderate segmental perfusion defect noted involving the apical segment of the right upper lobe. No corresponding radiographic abnormality. No other perfusion abnormality is identified. ADDITIONAL FINDINGS: None. IMPRESSION: Intermediate probability for pulmonary embolus with single segmental perfusion defect involving the a pical segment of the right upper lobe without corresponding radiographic abnormality. Signer Name: Prem Peace MD Signed: 02/09/2021 7:58 AM Workstation Name: [id number]
[2021-02-09] MEDS: LISINOPRIL 40 MG TAB PO SCH (10:00)
[2021-02-09] MEDS: amLODIPine 10 MG TAB PO SCH (10:00)
--- NOTE | 2021-02-09 10:49 | XRay Report ---
Right knee radiograph, 2 views. HISTORY: Pain COMPARISON: 11/29/2019. FINDINGS: Advanced tricompartmental osteoarthritis of the right knee, preferentially involving the me dial and patellofemoral compartments. There is downsloping of the medial tibial plateau. No acute fra cture or malalignment. Diffuse swelling of the anterior knee and moderate joint effusion are unchange d. IMPRESSION: Stable advanced right knee osteoarthritis. Signer Name: Prem Peace MD Signed: 02/09/2021 10:44 AM Workstation Name: [id number]
--- NOTE | 2021-02-09 11:27 | Progress Note ---
Assessment and Plan Assessment and plan: 60 YO Male with CVA, OA, HTN, HLD, Asthma, Obesity presents to ED for evaluation. Patient states "my chest hurts a little and I am a little short of breath". Patient states that he has experienced chest discomfort and shortness of breath over the past 2 days with worsening symptoms over the past 1 day. Patient states that pain is 8/10, intermittent, not worsened with exertion, not relieved with rest. Patient denies any generalized weakness. Patient also reports 20 pound weight loss over the past 1 month. Patient transported to [facility] via private vehicle for further care and evaluation of the aforementioned symptoms. The patient was seen and evaluated in the emergency department. All lab and imaging studies reviewed. Patient found to have symptomatic anemia secondary to hemoglobin of six. Patient found to have systemic inflammatory response syndrome complicated by acute kidney injury with acute tubular necrosis, as well as uncontrolled hypertension. Patient admitted to medical floor and initiated on IV antibiotic therapy as well as chest pain protocol. D- dimer is ordered and is pending at time of admission. VQ scan was also ordered and pending at time of admission. Patient denies fever, chills, palpitation, productive cough, skin rash, recent ill contacts, unilateral leg swelling, calf pain, individual/family history of DVT/PE/bleeding/blood clotting disorders, prolonged travel. Prior admission on 12/23/2017 reviewed. All medication listed at time of admission has been reconciled. Advanced care planning conducted in ED. Chest Pain: Serial cardiac enzymes, EKG, D-dimer, VQ scan ordered and is pending at time of admission. 02/09: GI, consult as patient has a concern for possible pulmonary embolism, will also obtain PT/OT eval, the patient will follow with outpatient Ortho for the knee pain. Possible arthritis, will also move forward to start on abx em perically, patient had an athrocentesis at the doctors office. Renal consulted also due to worsening renal function PT/OT as patient is unable to bare weight on right knee due to pain. (1) Systemic inflammatory response syndrome Current Visit: Yes Status: Acute Plan to address problem: CBC, CMP, IV antibiotic therapy, supplemental oxygen, supportive care, repeat CBC in a.m. Chest x-ray, urinalysis. (2) Acute kidney injury ([place]) with acute tubular necrosis (ATN) Current Visit: Yes Status: Acute Plan to address problem: IV fluid resuscitation therapy, monitor urine output every shift, BMP, repeat BMP in a.m. to monitor serum creatinine as well as GFR. (3) Symptomatic anemia Current Visit: Yes Status: Acute Plan to address problem: Packed red blood cell transfusion, iron replacement therapy, patient is Hemoccult negative. Patient counseled regarding need for outpatient colonoscopy to evaluate for GI malignancy. (4) Accelerated hypertension Current Visit: Yes Status: Acute Plan to address problem: Monitor blood pressure every shift, continue medical management. (5) Obesity (BMI 30.0-34.9) Current Visit: Yes Status: Acute Plan to address problem: Patient counseled regarding balanced diet, increase physical activity discharge. +15 minutes. (6) DVT prophylaxis Current Visit: No Status: Acute Plan to address problem: SCDs bilateral lower extremities while in bed, patient is ambulatory (7) Advance care planning Current Visit: Yes Status: Acute Plan to address problem: Disease education conducted, care plan discussed, diagnosis discussed, prognosis discussed, patient is full code, patient knowledges understanding and agreement with care plan, +30 minutes. History Interval history: Patient seen and examined continues to complain of pain in the right knee with gait abnormality. Denies any fever. Chest pain has improved Hospitalist Physical - Physical exam Narrative exam: VITAL SIGNS: Reviewed. GENERAL: The patient appears normally developed, Vital signs as documented. HEAD: No signs of head trauma. EYES: Pupils are equal. Extraocular motions intact. EARS: Hearing grossly intact. MOUTH: Oropharynx is normal. NECK: No adenopathy, no JVD. CHEST: Chest with clear breath sounds bilaterally. No wheezes, rales, or rhonchi. CARDIAC: Regular rate and rhythm. S1 and S2, without murmurs, gallops, or rubs. VASCULAR: No Edema. Peripheral pulses normal and equal in all extremities. ABDOMEN: Soft, non tender and non distended. No rebound or guarding, and no masses palpated. Bowel Sounds normal. MUSCULOSKELETAL: Warmth on the right knee, incision, swelling, Limited rang of motion of all major joints. Extremities without clubbing, cyanosis or edema. NEUROLOGIC EXAM: Alert and oriented x 3 No focal sensory or strength deficits. Speech normal. Follows commands. PSYCHIATRIC: Mood normal. SKIN: detail exam as documented in skin assessment - Constitutional Vitals: Temp Pulse Resp BP Pulse Ox 98.9 F 94 H 18 170/91 99 02/09/21 06:33 02/09/21 10:00 02/09/21 06:33 02/09/21 10:00 02/09/21 06:33 General appearance: Present: mild distress HEART Score - HEART Score EKG: Non-specific Age: 45-65 Risk factors: 1-2 risk factors Troponin: Troponin T < 0.010 ng/mL (0.00-0.029) 02/09/21 00:29 Troponin: < normal limit Results - Labs CBC & Chem 7: 02/09/21 10:58 02/09/21 10:58 Labs: Laboratory Last Values WBC 12.9 K/mm3 (4.5-11.0) H 02/08/21 12:15 RBC 4.26 M/mm3 (3.65-5.03) 02/08/21 12:15 Hgb 6.3 gm/dl (11.8-15.2) L 02/08/21 12:15 Hct 21.9 % (35.5-45.6) L 02/08/21 12:15 MCV 51 fl (84-94) L 02/08/21 12:15 MCH 15 pg (28-32) L 02/08/21 12:15 MCHC 29 % (32-34) L 02/08/21 12:15 RDW 20.9 % (13.2-15.2) H 02/08/21 12:15 Plt Count 446 K/mm3 (140-440) H 02/08/21 12:15 Eos % (Auto) Control Clerk Head 02/08/21 12:15 Lymph # (Auto) Control Clerk Head 02/08/21 12:15 Add Manual Diff Complete 02/08/21 12:15 Total Counted 100 02/08/21 12:15 Seg Neuts % (Manual) 67.0 % (40.0-70.0) 02/08/21 12:15 Lymphocytes % (Manual) 11.0 % (13.4-35.0) L 02/08/21 12:15 Monocytes % (Manual) 4.0 % (0.0-7.3) 02/08/21 12:15 Eosinophils % (Manual) 15.0 % (0.0-4.3) H 02/08/21 12:15 Basophils % (Manual) 3.0 % (0.0-1.8) H 02/08/21 12:15 Nucleated RBC % Not Reportable 02/08/21 12:15 Seg Neutrophils # Man 8.6 K/mm3 (1.8-7.7) H 02/08/21 12:15 Band Neutrophils # 0.0 K/mm3 02/08/21 12:15 Lymphocytes # (Manual) 1.4 K/mm3 (1.2-5.4) 02/08/21 12:15 Abs React Lymphs (Man) 0.0 K/mm3 02/08/21 12:15 Monocytes # (Manual) 0.5 K/mm3 (0.0-0.8) 02/08/21 12:15 Eosinophils # (Manual) 1.9 K/mm3 (0.0-0.4) H 02/08/21 12:15 Basophils # (Manual) 0.4 K/mm3 (0.0-0.1) H 02/08/21 12:15 Metamyelocytes # 0.0 K/mm3 02/08/21 12:15 Myelocytes # 0.0 K/mm3 02/08/21 12:15 Promyelocytes # 0.0 K/mm3 02/08/21 12:15 Blast Cells # 0.0 K/mm3 02/08/21 12:15 WBC Morphology Not Reportable 02/08/21 12:15 Hypersegmented Neuts Not Reportable 02/08/21 12:15 Hyposegmented Neuts Not Reportable 02/08/21 12:15 Hypogranular Neuts Not Reportable 02/08/21 12:15 Smudge Cells Not Reportable 02/08/21 12:15 Toxic Granulation Not Reportable 02/08/21 12:15 Toxic Vacuolation Not Reportable 02/08/21 12:15 Dohle Bodies Not Reportable 02/08/21 12:15 Pelger-Huet Anomaly Not Reportable 02/08/21 12:15 Ricci Rods Not Reportable 02/08/21 12:15 Platelet Estimate Consistent w auto 02/08/21 12:15 Clumped Platelets Not Reportable 02/08/21 12:15 Plt Clumps, EDTA Not Reportable 02/08/21 12:15 Large Platelets Not Reportable 02/08/21 12:15 Giant Platelets Not Reportable 02/08/21 12:15 Platelet Satelliting Not Reportable 02/08/21 12:15 Plt Morphology Comment Not Reportable 02/08/21 12:15 RBC Morphology Not Reportable 02/08/21 12:15 Dimorphic RBCs Not Reportable 02/08/21 12:15 Polychromasia Few 02/08/21 12:15 Hypochromasia 3+ 02/08/21 12:15 Poikilocytosis Not Reportable 02/08/21 12:15 Anisocytosis 1+ 02/08/21 12:15 Microcytosis 2+ 02/08/21 12:15 Macrocytosis Not Reportable 02/08/21 12:15 Spherocytes Not Reportable 02/08/21 12:15 Pappenheimer Bodies Not Reportable 02/08/21 12:15 Sickle Cells Not Reportable 02/08/21 12:15 Target Cells Not Reportable 02/08/21 12:15 Tear Drop Cells Not Reportable 02/08/21 12:15 Ovalocytes Not Reportable 02/08/21 12:15 Helmet Cells Not Reportable 02/08/21 12:15 [place] Bodies Not Reportable 02/08/21 12:15 [place] Rings Not Reportable 02/08/21 12:15 Syed Cells Not Reportable 02/08/21 12:15 Bite Cells Not Reportable 02/08/21 12:15 Crenated Cell Not Reportable 02/08/21 12:15 Elliptocytes Not Reportable 02/08/21 12:15 Acanthocytes (Spur) Not Reportable 02/08/21 12:15 Rouleaux Not Reportable 02/08/21 12:15 Hemoglobin C Crystals Not Reportable 02/08/21 12:15 Schistocytes Not Reportable 02/08/21 12:15 Malaria parasites Not Reportable 02/08/21 12:15 [place] Bodies Not Reportable 02/08/21 12:15 Hem Pathologist Commnt No 02/08/21 12:15 D-Dimer 1196.23 ng/mlDDU (0-234) H 02/08/21 20:48 Sodium 134 mmol/L (137-145) L 02/08/21 12:15 Potassium 4.5 mmol/L (3.6-5.0) 02/08/21 12:15 Chloride 98.9 mmol/L (98-107) 02/08/21 12:15 Carbon Dioxide 25 mmol/L (22-30) 02/08/21 12:15 Anion Gap 15 mmol/L 02/08/21 12:15 BUN 17 mg/dL (9-20) 02/08/21 12:15 Creatinine 2.4 mg/dL (0.8-1.3) H 02/08/21 12:15 Estimated GFR 33 ml/min 02/08/21 12:15 BUN/Creatinine Ratio 7 % 02/08/21 12:15 Glucose 90 mg/dL (75-100) 02/08/21 12:15 Calcium 9.1 mg/dL (8.4-10.2) 02/08/21 12:15 Total Bilirubin 0.20 mg/dL (0.1-1.2) 02/08/21 12:15 AST 11 units/L (5-40) 02/08/21 12:15 ALT 5 units/L (7-56) L 02/08/21 12:15 Alkaline Phosphatase 106 units/L (35-129) 02/08/21 12:15 Troponin T < 0.010 ng/mL (0.00-0.029) 02/09/21 00:29 Total Protein 8.4 g/dL (6.3-8.2) H 02/08/21 12:15 Albumin 3.7 g/dL (3.9-5) L 02/08/21 12:15 Albumin/Globulin Ratio 0.8 % 02/08/21 12:15 Triglycerides 113 mg/dL (2-149) 02/08/21 20:48 Cholesterol 181 mg/dL (50-199) 02/08/21 20:48 LDL Cholesterol Direct 129 mg/dL (50-130) 02/08/21 20:48 HDL Cholesterol 39 mg/dL (40-59) L 02/08/21 20:48 Cholesterol/HDL Ratio 4.64 % 02/08/21 20:48 Urine Color Yellow (Yellow) 02/09/21 01:20 Urine Turbidity Clear (Clear) 02/09/21 01:20 Urine pH 6.0 (5.0-7.0) 02/09/21 01:20 Ur Specific [place] 1.010 (1.003-1.030) 02/09/21 01:20 Urine Protein <15 mg/dl mg/dL (Negative) 02/09/21 01:20 Urine Glucose (UA) Neg mg/dL (Negative) 02/09/21 01:20 Urine Ketones Neg mg/dL (Negative) 02/09/21 01:20 Urine Blood Neg (Negative) 02/09/21 01:20 Urine Nitrite Neg (Negative) 02/09/21 01:20 Ur Reducing Substances Not Reportable 02/09/21 01:20 Urine Bilirubin Neg (Negative) 02/09/21 01:20 Urine Ictotest Not Reportable 02/09/21 01:20 Urine Urobilinogen < 2.0 mg/dL (<2.0) 02/09/21 01:20 Ur Leukocyte Esterase Neg (Negative) 02/09/21 01:20 Urine WBC (Auto) 1.0 /HPF (0.0-6.0) 02/09/21 01:20 Urine RBC (Auto) 1.0 /HPF (0.0-6.0) 02/09/21 01:20 U Epithel Cells (Auto) < 1.0 /HPF (0-13.0) 02/09/21 01:20 Urine Mucus Few /HPF 02/09/21 01:20 Blood Type B POSITIVE 02/08/21 20:09 Antibody Screen Negative 02/08/21 20:09 Crossmatch See Detail 02/08/21 20:09 Weaver/IV: Voiding Method Urinal Active Medications - Current Medications Current Medications: Generic Name Dose Route Start Last Admin Trade Name Freq PRN Reason Stop Dose Admin Acetaminophen 650 mg 02/08/21 20:00 Acetaminophen 325 Mg Tab PO Q4H PRN Pain MILD(1-3)/Fever >100.5/MCGHEE Hydrocodone Bitart/Acetaminophen 1 each 02/08/21 20:02 02/09/21 00:05 Hydrocodone/Acetaminophen 7.5-325mg Tab PO 1 each Q6HR PRN Administration PAIN Albuterol 2.5 mg 02/08/21 20:00 Albuterol 2.5 Mg/3 Ml Nebu IH Q4HRT PRN Shortness Of Breath Amlodipine Besylate 10 mg 02/09/21 10:00 02/09/21 10:00 Amlodipine 10 Mg Tab PO 10 mg QDAY JOSIE Administration Atorvastatin Calcium 40 mg 02/08/21 22:00 02/09/21 00:05 Atorvastatin 40 Mg Tab PO 40 mg QHS JOSIE Administration Doxazosin Mesylate 2 mg 02/09/21 18:00 Doxazosin 1 Mg Tab PO QPM JOSIE Ferrous Sulfate 325 mg 02/08/21 22:00 02/09/21 10:00 Ferrous Sulfate 325 Mg Tab PO 325 mg BID JOSIE Administration Hydralazine HCl 5 mg 02/09/21 02:57 02/09/21 03:11 Hydralazine 20 Mg/1 Ml Inj IV 5 mg Q4H PRN Administration Hypertension Hydralazine HCl 10 mg 02/09/21 11:23 Hydralazine 20 Mg/1 Ml Inj IV Q4HR PRN Hypertension Sodium Chloride 500 mls @ 0 mls/hr 02/08/21 20:03 02/09/21 01:19 Nacl 0.9% 500 Ml IV 02/09/21 20:02 100 mls/hr ONCE NR Administration As Directed Ceftriaxone Sodium 1 gm in 50 mls @ 100 mls/hr 02/08/21 20:04 02/08/21 21:03 Rocephin/Ns 1 Gm/50 Ml IV 02/12/21 23:59 100 mls/hr Q24H JOSIE Administration Protocol Lisinopril 40 mg 02/09/21 10:00 02/09/21 10:00 Lisinopril 40 Mg Tab PO 40 mg QDAY JOSIE Administration Morphine Sulfate 2 mg 02/09/21 10:30 Morphine 2 Mg/1 Ml Inj IV Q4H PRN Pain, Moderate (4-6) Ondansetron HCl 4 mg 02/08/21 20:00 Ondansetron 4 Mg/2 Ml Inj IV Q8H PRN Nausea And Vomiting Sodium Chloride 10 ml 02/08/21 22:00 02/09/21 10:01 Sodium Chloride 0.9% 10 Ml Flush Syringe IV 10 ml BID JOSIE Administration Sodium Chloride 10 ml 02/08/21 20:00 Sodium Chloride 0.9% 10 Ml Flush Syringe IV PRN PRN LINE FLUSH Sodium Chloride 10 ml 02/08/21 20:38 Sodium Chloride 0.9% 10 Ml Flush Syringe IV PRN PRN LINE FLUSH Tramadol HCl 50 mg 02/08/21 20:38 Tramadol 50 Mg Tab PO Q6H PRN Pain, Moderate (4-6)
[2021-02-09 11:42] LABS: Hematocrit 28.5 % (35.5-45.6); Hemoglobin 8.7 gm/dl (11.8-15.2); Mean Corpuscular HGB Conc 31 % (32-34); Platelet Count 429 K/mm3 (140-440); Red Blood Count 4.88 M/mm3 (3.65-5.03)
[2021-02-09 11:43] LABS: Mean Corpuscular Volume 59 fl (84-94)
[2021-02-09 11:49] LABS: Calcium 9.2 mg/dL (8.4-10.2)
[2021-02-09 12:26] LABS: Total Cells Counted 100
[2021-02-09 12:27] LABS: Anisocytosis 2+; Hypochromasia 3+; Platelet Estimate Consistent w Auto
--- NOTE | 2021-02-09 13:07 | Vascular Lab Report ---
DUPLEX DOPPLER LOWER EXTREMITY VEINS, BILATERAL INDICATION / CLINICAL INFORMATION: Anemia, leg swelling TECHNIQUE: Duplex doppler imaging was performed through the veins of both lower extremities using venous terrie zaida and other maneuvers. COMPARISON: None available. FINDINGS: RIGHT COMMON FEMORAL VEIN: Negative. RIGHT FEMORAL VEIN: Negative. RIGHT POPLITEAL VEIN: Negative. RIGHT CALF VEINS: Negative. LEFT COMMON FEMORAL VEIN: Negative. LEFT FEMORAL VEIN: Negative. LEFT POPLITEAL VEIN: Negative. LEFT CALF VEINS: Negative. ADDITIONAL FINDINGS: None. IMPRESSION: 1. No sonographic evidence for DVT in either lower extremity. Signer Name: Dayton Peters MD Signed: 02/09/2021 1:02 PM Workstation Name: [id number]
[2021-02-09] MEDS: DOXAZOSIN 1 MG TAB PO SCH (17:31)
[2021-02-09] MEDS ORDERED: NON-FORMULARY EACH (Doxazosin Mesylate [Cardura] 2 MG Tablet) PO SCH (18:00)
--- NOTE | 2021-02-09 18:26 | Gastroenterology Consultation ---
History of Present Illness - Reason for Consult Consult date: 02/09/21 anemia Requesting physician: TONY WOODS - History of Present Illness This is a 60 yo male with pmh of HTN, HLD, obesity, CVA, and OA admitted overnight for chest pain and sob. Found to have anemia with Hgb at 6. GI consulted for anemia. Patient denies any blood in his stools, melena, abdominal pain, nausea/vomiting, or weight loss. No prior colonoscopy. He feels better after having blood transfusion. Appropriate increase in Hgb to 8 today. Patient being evaluated for possible PE and chest pain. Medication list reviewed. Past History Past Medical History: arthritis, hypertension, hyperlipidemia, stroke, other (See HPI) Past Surgical History: appendectomy, cholecystectomy, total hip replacement, bowel surgery Social history: single. denies: smoking, alcohol abuse, prescription drug abuse Family history: diabetes, hypertension Medications and Allergies Allergies Allergy/AdvReac Type Severity Reaction Status Date / Time No Known Allergies Allergy Verified 11/28/20 11:19 Home Medications Medication Instructions Recorded Confirmed Last Taken Type AtorvaSTATin [Lipitor] 40 mg PO QHS #30 tablet 12/31/17 11/28/20 Unknown Rx Clopidogrel [Plavix] 75 mg PO QDAY #30 tablet 12/31/17 11/28/20 Unknown Rx Doxazosin Mesylate [Cardura] 2 mg PO QPM #30 tablet 12/31/17 11/28/20 Unknown Rx Lisinopril [Zestril] 40 mg PO QDAY #30 tablet 12/31/17 11/28/20 Unknown Rx amLODIPine 10 mg PO QDAY #30 tablet 12/31/17 11/28/20 Unknown Rx oxyCODONE /ACETAMINOPHEN [Percocet 1 tab PO Q6H PRN #20 tablet 06/23/20 11/28/20 Unknown Rx 5/325 mg] HYDROcodone/APAP 7.5-325 [Ora 1 each PO Q6HR PRN #15 tablet 11/28/20 Unknown Rx 7.5/325] Active Meds: Active Medications Acetaminophen (Acetaminophen 325 Mg Tab) 650 mg PO Q4H PRN PRN Reason: Pain MILD(1-3)/Fever >100.5/MCGHEE Hydrocodone Bitart/Acetaminophen (Hydrocodone/Acetaminophen 7.5-325mg Tab) 1 each PO Q6HR PRN PRN Reason: PAIN Last Admin: 02/09/21 12:24 Dose: 1 each Documented by: Albuterol (Albuterol 2.5 Mg/3 Ml Nebu) 2.5 mg IH Q4HRT PRN PRN Reason: Shortness Of Breath Amlodipine Besylate (Amlodipine 10 Mg Tab) 10 mg PO QDAY [facility] Last Admin: 02/09/21 10:00 Dose: 10 mg Documented by: Atorvastatin Calcium (Atorvastatin 40 Mg Tab) 40 mg PO QHS [facility] Last Admin: 02/09/21 00:05 Dose: 40 mg Documented by: Doxazosin Mesylate (Doxazosin 1 Mg Tab) 2 mg PO QPM [facility] Last Admin: 02/09/21 17:31 Dose: 2 mg Documented by: Ferrous Sulfate (Ferrous Sulfate 325 Mg Tab) 325 mg PO BID [facility] Last Admin: 02/09/21 10:00 Dose: 325 mg Documented by: Hydralazine HCl (Hydralazine 20 Mg/1 Ml Inj) 10 mg IV Q4H PRN PRN Reason: Hypertension Last Admin: 02/09/21 12:33 Dose: 10 mg Documented by: Sodium Chloride (Nacl 0.9% 500 Ml) 500 mls @ 0 mls/hr IV ONCE NR Stop: 02/09/21 20:02 Last Admin: 02/09/21 01:19 Dose: 100 mls/hr Documented by: Ceftriaxone Sodium (Rocephin/Ns 1 Gm/50 Ml) 1 gm in 50 mls @ 100 mls/hr IV Q24H [facility]; Protocol Stop: 02/12/21 23:59 Last Admin: 02/08/21 21:03 Dose: 100 mls/hr Documented by: Lisinopril (Lisinopril 40 Mg Tab) 40 mg PO QDAY [facility] Last Admin: 02/09/21 10:00 Dose: 40 mg Documented by: Morphine Sulfate (Morphine 2 Mg/1 Ml Inj) 2 mg IV Q4H PRN PRN Reason: Pain, Moderate (4-6) Ondansetron HCl (Ondansetron 4 Mg/2 Ml Inj) 4 mg IV Q8H PRN PRN Reason: Nausea And Vomiting Sodium Chloride (Sodium Chloride 0.9% 10 Ml Flush Syringe) 10 ml IV BID [facility] Last Admin: 02/09/21 10:01 Dose: 10 ml Documented by: Sodium Chloride (Sodium Chloride 0.9% 10 Ml Flush Syringe) 10 ml IV PRN PRN PRN Reason: LINE FLUSH Sodium Chloride (Sodium Chloride 0.9% 10 Ml Flush Syringe) 10 ml IV PRN PRN PRN Reason: LINE FLUSH Tramadol HCl (Tramadol 50 Mg Tab) 50 mg PO Q6H PRN PRN Reason: Pain, Moderate (4-6) Review of Systems - Review of Systems All systems: negative Constitutional: no weight loss, no weight gain, no fever, no chills Ears, Nose, Throat: no decreased hearing Cardiovascular: chest pain, no edema, no palpitations Respiratory: shortness of breath, no cough Gastrointestinal: no abdominal pain, no nausea, no vomiting, no diarrhea, no BRBPR, no melena, no hematochezia Musculoskeletal: no gait dysfunction Neurological: no head injury Psychiatric: no anxiety Hematologic/Lymphatic: no easy bruising Allergic/Immunologic: no wheezing Exam - Constitutional Vital Signs: Temp Pulse Resp BP Pulse Ox 98.9 F 99 H 18 175/93 96 02/09/21 06:33 02/09/21 17:31 02/09/21 06:33 02/09/21 17:31 02/09/21 12:19 General appearance: no acute distress - EENT Eyes: EOM intact ENT: hearing intact - Respiratory Respiratory effort: normal - Cardiovascular Rhythm: regular Heart Sounds: Present: S1 & S2 - Gastrointestinal General gastrointestinal: Present: soft, non-tender, non-distended, normal bowel sounds - Integumentary Integumentary: Present: clear, warm - Neurologic Neurological: alert and oriented x3 - Psychiatric Psychiatric: appropriate mood/affect - Labs CBC & Chem 7: 02/09/21 10:58 02/09/21 10:58 Lab Results: Laboratory Results - last 24 hr 02/08/21 02/08/21 02/08/21 12:15 20:09 20:48 WBC 12.9 H RBC 4.26 Hgb 6.3 L Hct 21.9 L MCV 51 L MCH 15 L MCHC 29 L RDW 20.9 H Plt Count 446 H Eos % (Auto) Dairy Department Manager Lymph # (Auto) Dairy Department Manager Add Manual Diff Complete Total Counted 100 Seg Neuts % (Manual) 67.0 Lymphocytes % (Manual) 11.0 L Monocytes % (Manual) 4.0 Eosinophils % (Manual) 15.0 H Basophils % (Manual) 3.0 H Nucleated RBC % Seg Neutrophils # Man 8.6 H Band Neutrophils # 0.0 Lymphocytes # (Manual) 1.4 Abs React Lymphs (Man) 0.0 Monocytes # (Manual) 0.5 Eosinophils # (Manual) 1.9 H Basophils # (Manual) 0.4 H Metamyelocytes # 0.0 Myelocytes # 0.0 Promyelocytes # 0.0 Blast Cells # 0.0 WBC Morphology Hypersegmented Neuts Hyposegmented Neuts Hypogranular Neuts Smudge Cells Toxic Granulation Toxic Vacuolation Dohle Bodies Pelger-Huet Anomaly Ricci Rods Platelet Estimate Consistent w auto Clumped Platelets Plt Clumps, EDTA Large Platelets Giant Platelets Platelet Satelliting Plt Morphology Comment RBC Morphology Dimorphic RBCs Polychromasia Few Hypochromasia 3+ Poikilocytosis Anisocytosis 1+ Microcytosis 2+ Macrocytosis Spherocytes Pappenheimer Bodies Sickle Cells Target Cells Tear Drop Cells Ovalocytes Helmet Cells [place] Bodies Jber Rings [place] Cells Bite Cells Crenated Cell Elliptocytes Acanthocytes (Spur) Rouleaux Hemoglobin C Crystals Schistocytes Malaria parasites Lavelle Bodies Hem Pathologist Commnt No D-Dimer 1196.23 H Sodium Potassium Chloride Carbon Dioxide Anion Gap BUN Creatinine Estimated GFR BUN/Creatinine Ratio Glucose Calcium Troponin T Triglycerides Cholesterol LDL Cholesterol Direct HDL Cholesterol Cholesterol/HDL Ratio Urine Color Urine Turbidity Urine pH Ur Specific [place] Urine Protein Urine Glucose (UA) Urine Ketones Urine Blood Urine Nitrite Ur Reducing Substances Urine Bilirubin Urine Ictotest Urine Urobilinogen Ur Leukocyte Esterase Urine WBC (Auto) Urine RBC (Auto) U Epithel Cells (Auto) Urine Mucus Blood Type B POSITIVE Antibody Screen Negative Crossmatch See Detail 02/08/21 02/09/21 02/09/21 20:48 00:29 01:20 WBC RBC Hgb Hct MCV MCH MCHC RDW Plt Count Eos % (Auto) Lymph # (Auto) Add Manual Diff Total Counted Seg Neuts % (Manual) Lymphocytes % (Manual) Monocytes % (Manual) Eosinophils % (Manual) Basophils % (Manual) Nucleated RBC % Seg Neutrophils # Man Band Neutrophils # Lymphocytes # (Manual) Abs React Lymphs (Man) Monocytes # (Manual) Eosinophils # (Manual) Basophils # (Manual) Metamyelocytes # Myelocytes # Promyelocytes # Blast Cells # WBC Morphology Hypersegmented Neuts Hyposegmented Neuts Hypogranular Neuts Smudge Cells Toxic Granulation Toxic Vacuolation Dohle Bodies Pelger-Huet Anomaly Ricci Rods Platelet Estimate Clumped Platelets Plt Clumps, EDTA Large Platelets Giant Platelets Platelet Satelliting Plt Morphology Comment RBC Morphology Dimorphic RBCs Polychromasia Hypochromasia Poikilocytosis Anisocytosis Microcytosis Macrocytosis Spherocytes Pappenheimer Bodies Sickle Cells Target Cells Tear Drop Cells Ovalocytes Helmet Cells [place] Bodies Jber Rings Syed Cells Bite Cells Crenated Cell Elliptocytes Acanthocytes (Spur) Rouleaux Hemoglobin C Crystals Schistocytes Malaria parasites Lavelle Bodies Hem Pathologist Commnt D-Dimer Sodium Potassium Chloride Carbon Dioxide Anion Gap BUN Creatinine Estimated GFR BUN/Creatinine Ratio Glucose Calcium Troponin T < 0.010 Triglycerides 113 Cholesterol 181 LDL Cholesterol Direct 129 HDL Cholesterol 39 L Cholesterol/HDL Ratio 4.64 Urine Color Yellow Urine Turbidity Clear Urine pH 6.0 Ur Specific [place] 1.010 Urine Protein <15 mg/dl Urine Glucose (UA) Neg Urine Ketones Neg Urine Blood Neg Urine Nitrite Neg Ur Reducing Substances Not Reportable Urine Bilirubin Neg Urine Ictotest Not Reportable Urine Urobilinogen < 2.0 Ur Leukocyte Esterase Neg Urine WBC (Auto) 1.0 Urine RBC (Auto) 1.0 U Epithel Cells (Auto) < 1.0 Urine Mucus Few Blood Type Antibody Screen Crossmatch 02/09/21 02/09/21 02/09/21 10:58 10:58 10:58 WBC 13.9 H RBC 4.88 Hgb 8.7 L Hct 28.5 L D MCV 59 L MCH 18 L MCHC 31 L RDW 33.0 H Plt Count 429 Eos % (Auto) Dairy Department Manager Lymph # (Auto) Add Manual Diff Complete Total Counted 100 Seg Neuts % (Manual) 48.0 Lymphocytes % (Manual) 17.0 Monocytes % (Manual) 7.0 Eosinophils % (Manual) 26.0 H Basophils % (Manual) 2.0 H Nucleated RBC % Not Reportable Seg Neutrophils # Man 6.7 Band Neutrophils # 0.0 Lymphocytes # (Manual) 2.4 Abs React Lymphs (Man) 0.0 Monocytes # (Manual) 1.0 H Eosinophils # (Manual) 3.6 H Basophils # (Manual) 0.3 H Metamyelocytes # 0.0 Myelocytes # 0.0 Promyelocytes # 0.0 Blast Cells # 0.0 WBC Morphology Not Reportable Hypersegmented Neuts Not Reportable Hyposegmented Neuts Not Reportable Hypogranular Neuts Not Reportable Smudge Cells Not Reportable Toxic Granulation Not Reportable Toxic Vacuolation Not Reportable Dohle Bodies Not Reportable Pelger-Huet Anomaly Not Reportable Ricci Rods Not Reportable Platelet Estimate Consistent w auto Clumped Platelets Not Reportable Plt Clumps, EDTA Not Reportable Large Platelets Not Reportable Giant Platelets Not Reportable Platelet Satelliting Not Reportable Plt Morphology Comment Not Reportable RBC Morphology Not Reportable Dimorphic RBCs Not Reportable Polychromasia Not Reportable Hypochromasia 3+ Poikilocytosis Not Reportable Anisocytosis 2+ Microcytosis 2+ Macrocytosis Not Reportable Spherocytes Not Reportable Pappenheimer Bodies Not Reportable Sickle Cells Not Reportable Target Cells Not Reportable Tear Drop Cells Not Reportable Ovalocytes Not Reportable Helmet Cells Not Reportable [place] Bodies Not Reportable Jber Rings Not Reportable [place] Cells Not Reportable Bite Cells Not Reportable Crenated Cell Not Reportable Elliptocytes Not Reportable Acanthocytes (Spur) Not Reportable Rouleaux Not Reportable Hemoglobin C Crystals Not Reportable Schistocytes Not Reportable Malaria parasites Not Reportable Lavelle Bodies Not Reportable Hem Pathologist Commnt No D-Dimer Sodium 136 L Potassium 4.4 Chloride 101.0 Carbon Dioxide 24 Anion Gap 15 BUN 16 Creatinine 2.4 H Estimated GFR 33 BUN/Creatinine Ratio 7 Glucose 110 H Calcium 9.2 Troponin T 0.010 Triglycerides Cholesterol LDL Cholesterol Direct HDL Cholesterol Cholesterol/HDL Ratio Urine Color Urine Turbidity Urine pH Ur Specific [place] Urine Protein Urine Glucose (UA) Urine Ketones Urine Blood Urine Nitrite Ur Reducing Substances Urine Bilirubin Urine Ictotest Urine Urobilinogen Ur Leukocyte Esterase Urine WBC (Auto) Urine RBC (Auto) U Epithel Cells (Auto) Urine Mucus Blood Type Antibody Screen Crossmatch Assessment and Plan This is a 60 yo male with pmh of HTN, HLD, obesity, CVA, and OA admitted overnight for chest pain and sob. Found to have anemia with Hgb at 6. GI consulted for anemia. # Microcytic Anemia - Prior Hgb at 12 in 2018. - MCV low 60s - Hgb at 6.6 to 8.7 after blood transfusion. - no overt signs of GI bleeding. hemeoccult negative per report - suspect chronic anemia with iron deficiency and low MCV rec - recommend outpatient work up with EGD/colonoscopy unless he develops overt GI bleeding symptoms during this admission. - monitor H/H. - will sign off. please call with any questions. - Patient Problems (1) Symptomatic anemia Current Visit: Yes Status: Acute
[2021-02-09] MEDS: cefTRIAXone/NS 1 GM/50 ML 1 GM/50 ML BAG IV SCH (20:20)
--- NOTE | 2021-02-10 00:49 | Hem/Onc Consultation ---
History of Present Illness - History of Present Illness heme onc consult prelim eval televisit-av cart not available 60yo obese man (200 lbs) eval for SOB, SP, weight loss 20 lbs o gregor a month found to have severe anemia hgb 6 denies overt GI tract bleeding found to have creat 2.4 R knee swelling; Xray c/w OA DATA REVIEWED BELOW Hgb 6-->8.7 liver enzymes nl IMP: severe iron defic anemia high eosinophils -r/o solid tumor malignancy r/o GI tract malignancy ARF/CKD-r/o myeloma R knee OA or pseudogout PLAN: RBC transfusion done IV iron infusion steroid pulse for R knee inflammation/pseudogout A/P CT to look for heme malignancy or solidf tumor malignancy GI eval requested-->consider outpt EGD.colonoscopy labs to include Hgb electrophoresis, CEA, SPEP Previous Rx's Medication Instructions Recorded Last Taken Type AtorvaSTATin [Lipitor] 40 mg PO QHS #30 tablet 12/31/17 Unknown Rx Clopidogrel [Plavix] 75 mg PO QDAY #30 tablet 12/31/17 Unknown Rx Doxazosin Mesylate [Cardura] 2 mg PO QPM #30 tablet 12/31/17 Unknown Rx Lisinopril [Zestril] 40 mg PO QDAY #30 tablet 12/31/17 Unknown Rx amLODIPine 10 mg PO QDAY #30 tablet 12/31/17 Unknown Rx oxyCODONE /ACETAMINOPHEN [Percocet 1 tab PO Q6H PRN #20 tablet 06/23/20 Unknown Rx 5/325 mg] HYDROcodone/APAP 7.5-325 [Celeste 1 each PO Q6HR PRN #15 tablet 11/28/20 Unknown Rx 7.5/325] Active Medications Amlodipine Besylate (Amlodipine 10 Mg Tab) 10 mg PO QDAY [facility] Last Admin: 02/09/21 10:00 Dose: 10 mg Documented by: Atorvastatin Calcium (Atorvastatin 40 Mg Tab) 40 mg PO QHS [facility] Last Admin: 02/09/21 21:11 Dose: 40 mg Documented by: Doxazosin Mesylate (Doxazosin 1 Mg Tab) 2 mg PO QPM [facility] Last Admin: 02/09/21 17:31 Dose: 2 mg Documented by: Ferrous Sulfate (Ferrous Sulfate 325 Mg Tab) 325 mg PO BID [facility] Last Admin: 02/09/21 21:11 Dose: 325 mg Ceftriaxone Sodium (Rocephin/Ns 1 Gm/50 Ml) 1 gm in 50 mls @ 100 mls/hr IV Q24H [facility]; Protocol Stop: 02/12/21 23:59 Last Admin: 02/09/21 20:20 Dose: 100 mls/hr Documented by: Lisinopril (Lisinopril 40 Mg Tab) 40 mg PO QDAY [facility] Last Admin: 02/09/21 10:00 Dose: 40 mg Documented by: Laboratory Last Values WBC 13.9 K/mm3 (4.5-11.0) H 02/09/21 10:58 Hgb 8.7 gm/dl (11.8-15.2) L 02/09/21 10:58 Hct 28.5 % (35.5-45.6) L D 02/09/21 10:58 MCV 59 fl (84-94) L 02/09/21 10:58 Plt Count 429 K/mm3 (140-440) 02/09/21 10:58 Seg Neuts % (Manual) 48.0 % (40.0-70.0) 02/09/21 10:58 Lymphocytes % (Manual) 17.0 % (13.4-35.0) 02/09/21 10:58 Monocytes % (Manual) 7.0 % (0.0-7.3) 02/09/21 10:58 Eosinophils % (Manual) 26.0 % (0.0-4.3) H 02/09/21 10:58 Creatinine 2.4 mg/dL (0.8-1.3) H 02/09/21 10:58 Calcium 9.2 mg/dL (8.4-10.2) 02/09/21 10:58 Alkaline Phosphatase 106 units/L (35-129) 02/08/21 12:15 Troponin T 0.010 ng/mL (0.00-0.029) 02/09/21 10:58 Total Protein 8.4 g/dL (6.3-8.2) H 02/08/21 12:15 Albumin 3.7 g/dL (3.9-5) L 02/08/21 12:15 Urine Blood Neg (Negative) 02/09/21 01:20 Crossmatch See Detail 02/08/21 20:09 Past History Past Medical History: arthritis, hypertension, hyperlipidemia, stroke, other (See HPI) Past Surgical History: appendectomy, cholecystectomy, total hip replacement, bowel surgery Social history: single. denies: smoking, alcohol abuse, prescription drug abuse Family history: diabetes, hypertension Medications and Allergies Allergies Allergy/AdvReac Type Severity Reaction Status Date / Time No Known Allergies Allergy Verified 11/28/20 11:19 Home Medications Medication Instructions Recorded Confirmed Last Taken Type AtorvaSTATin [Lipitor] 40 mg PO QHS #30 tablet 12/31/17 11/28/20 Unknown Rx Clopidogrel [Plavix] 75 mg PO QDAY #30 tablet 12/31/17 11/28/20 Unknown Rx Doxazosin Mesylate [Cardura] 2 mg PO QPM #30 tablet 12/31/17 11/28/20 Unknown Rx Lisinopril [Zestril] 40 mg PO QDAY #30 tablet 12/31/17 11/28/20 Unknown Rx amLODIPine 10 mg PO QDAY #30 tablet 12/31/17 11/28/20 Unknown Rx oxyCODONE /ACETAMINOPHEN [Percocet 1 tab PO Q6H PRN #20 tablet 06/23/20 11/28/20 Unknown Rx 5/325 mg] HYDROcodone/APAP 7.5-325 [Celeste 1 each PO Q6HR PRN #15 tablet 11/28/20 Unknown Rx 7.5/325] Active Meds: Active Medications Acetaminophen (Acetaminophen 325 Mg Tab) 650 mg PO Q4H PRN PRN Reason: Pain MILD(1-3)/Fever >100.5/MCGHEE Hydrocodone Bitart/Acetaminophen (Hydrocodone/Acetaminophen 7.5-325mg Tab) 1 each PO Q6HR PRN PRN Reason: PAIN Last Admin: 02/09/21 21:11 Dose: 1 each Documented by: Albuterol (Albuterol 2.5 Mg/3 Ml Nebu) 2.5 mg IH Q4HRT PRN PRN Reason: Shortness Of Breath Amlodipine Besylate (Amlodipine 10 Mg Tab) 10 mg PO QDAY [facility] Last Admin: 02/09/21 10:00 Dose: 10 mg Documented by: Atorvastatin Calcium (Atorvastatin 40 Mg Tab) 40 mg PO QHS [facility] Last Admin: 02/09/21 21:11 Dose: 40 mg Documented by: Doxazosin Mesylate (Doxazosin 1 Mg Tab) 2 mg PO QPM [facility] Last Admin: 02/09/21 17:31 Dose: 2 mg Documented by: Ferrous Sulfate (Ferrous Sulfate 325 Mg Tab) 325 mg PO BID [facility] Last Admin: 02/09/21 21:11 Dose: 325 mg Documented by: Hydralazine HCl (Hydralazine 20 Mg/1 Ml Inj) 10 mg IV Q4H PRN PRN Reason: Hypertension Last Admin: 02/09/21 12:33 Dose: 10 mg Documented by: Ceftriaxone Sodium (Rocephin/Ns 1 Gm/50 Ml) 1 gm in 50 mls @ 100 mls/hr IV Q24H [facility]; Protocol Stop: 02/12/21 23:59 Last Admin: 02/09/21 20:20 Dose: 100 mls/hr Documented by: Lisinopril (Lisinopril 40 Mg Tab) 40 mg PO QDAY [facility] Last Admin: 02/09/21 10:00 Dose: 40 mg Documented by: Morphine Sulfate (Morphine 2 Mg/1 Ml Inj) 2 mg IV Q4H PRN PRN Reason: Pain, Moderate (4-6) Ondansetron HCl (Ondansetron 4 Mg/2 Ml Inj) 4 mg IV Q8H PRN PRN Reason: Nausea And Vomiting Sodium Chloride (Sodium Chloride 0.9% 10 Ml Flush Syringe) 10 ml IV BID [facility] Last Admin: 02/09/21 21:10 Dose: 10 ml Documented by: Sodium Chloride (Sodium Chloride 0.9% 10 Ml Flush Syringe) 10 ml IV PRN PRN PRN Reason: LINE FLUSH Sodium Chloride (Sodium Chloride 0.9% 10 Ml Flush Syringe) 10 ml IV PRN PRN PRN Reason: LINE FLUSH Tramadol HCl (Tramadol 50 Mg Tab) 50 mg PO Q6H PRN PRN Reason: Pain, Moderate (4-6) Exam - Constitutional Vitals: Last Vital Signs Temp 98.4 F 02/09/21 21:17 Pulse 108 H 02/09/21 21:17 Resp 18 02/09/21 21:17 BP 150/87 02/09/21 21:17 Pulse Ox 96 02/09/21 22:01 Results - Labs lab Results: Laboratory Results - last 24 hr 02/08/21 02/09/21 02/09/21 20:09 00:29 01:20 WBC RBC Hgb Hct MCV MCH MCHC RDW Plt Count Eos % (Auto) Add Manual Diff Total Counted Seg Neuts % (Manual) Lymphocytes % (Manual) Monocytes % (Manual) Eosinophils % (Manual) Basophils % (Manual) Nucleated RBC % Seg Neutrophils # Man Band Neutrophils # Lymphocytes # (Manual) Abs React Lymphs (Man) Monocytes # (Manual) Eosinophils # (Manual) Basophils # (Manual) Metamyelocytes # Myelocytes # Promyelocytes # Blast Cells # WBC Morphology Hypersegmented Neuts Hyposegmented Neuts Hypogranular Neuts Smudge Cells Toxic Granulation Toxic Vacuolation Dohle Bodies Pelger-Huet Anomaly Ricci Rods Platelet Estimate Clumped Platelets Plt Clumps, EDTA Large Platelets Giant Platelets Platelet Satelliting Plt Morphology Comment RBC Morphology Dimorphic RBCs Polychromasia Hypochromasia Poikilocytosis Anisocytosis Microcytosis Macrocytosis Spherocytes Pappenheimer Bodies Sickle Cells Target Cells Tear Drop Cells Ovalocytes Helmet Cells [place] Bodies [place] Rings Syed Cells Bite Cells Crenated Cell Elliptocytes Acanthocytes (Spur) Rouleaux Hemoglobin C Crystals Schistocytes Malaria parasites Lavelle Bodies Hem Pathologist Commnt Sodium Potassium Chloride Carbon Dioxide Anion Gap BUN Creatinine Estimated GFR BUN/Creatinine Ratio Glucose Calcium Troponin T < 0.010 Urine Color Yellow Urine Turbidity Clear Urine pH 6.0 Ur Specific [place] 1.010 Urine Protein <15 mg/dl Urine Glucose (UA) Neg Urine Ketones Neg Urine Blood Neg Urine Nitrite Neg Ur Reducing Substances Not Reportable Urine Bilirubin Neg Urine Ictotest Not Reportable Urine Urobilinogen < 2.0 Ur Leukocyte Esterase Neg Urine WBC (Auto) 1.0 Urine RBC (Auto) 1.0 U Epithel Cells (Auto) < 1.0 Urine Mucus Few Blood Type B POSITIVE Antibody Screen Negative Crossmatch See Detail 02/09/21 02/09/21 02/09/21 10:58 10:58 10:58 WBC 13.9 H RBC 4.88 Hgb 8.7 L Hct 28.5 L D MCV 59 L MCH 18 L MCHC 31 L RDW 33.0 H Plt Count 429 Eos % (Auto) Threshing Department Supervisor Add Manual Diff Complete Total Counted 100 Seg Neuts % (Manual) 48.0 Lymphocytes % (Manual) 17.0 Monocytes % (Manual) 7.0 Eosinophils % (Manual) 26.0 H Basophils % (Manual) 2.0 H Nucleated RBC % Not Reportable Seg Neutrophils # Man 6.7 Band Neutrophils # 0.0 Lymphocytes # (Manual) 2.4 Abs React Lymphs (Man) 0.0 Monocytes # (Manual) 1.0 H Eosinophils # (Manual) 3.6 H Basophils # (Manual) 0.3 H Metamyelocytes # 0.0 Myelocytes # 0.0 Promyelocytes # 0.0 Blast Cells # 0.0 WBC Morphology Not Reportable Hypersegmented Neuts Not Reportable Hyposegmented Neuts Not Reportable Hypogranular Neuts Not Reportable Smudge Cells Not Reportable Toxic Granulation Not Reportable Toxic Vacuolation Not Reportable Dohle Bodies Not Reportable Pelger-Huet Anomaly Not Reportable Ricci Rods Not Reportable Platelet Estimate Consistent w auto Clumped Platelets Not Reportable Plt Clumps, EDTA Not Reportable Large Platelets Not Reportable Giant Platelets Not Reportable Platelet Satelliting Not Reportable Plt Morphology Comment Not Reportable RBC Morphology Not Reportable Dimorphic RBCs Not Reportable Polychromasia Not Reportable Hypochromasia 3+ Poikilocytosis Not Reportable Anisocytosis 2+ Microcytosis 2+ Macrocytosis Not Reportable Spherocytes Not Reportable Pappenheimer Bodies Not Reportable Sickle Cells Not Reportable Target Cells Not Reportable Tear Drop Cells Not Reportable Ovalocytes Not Reportable Helmet Cells Not Reportable [place] Bodies Not Reportable [place] Rings Not Reportable [place] Cells Not Reportable Bite Cells Not Reportable Crenated Cell Not Reportable Elliptocytes Not Reportable Acanthocytes (Spur) Not Reportable Rouleaux Not Reportable Hemoglobin C Crystals Not Reportable Schistocytes Not Reportable Malaria parasites Not Reportable Lavelle Bodies Not Reportable Hem Pathologist Commnt No Sodium 136 L Potassium 4.4 Chloride 101.0 Carbon Dioxide 24 Anion Gap 15 BUN 16 Creatinine 2.4 H Estimated GFR 33 BUN/Creatinine Ratio 7 Glucose 110 H Calcium 9.2 Troponin T 0.010 Urine Color Urine Turbidity Urine pH Ur Specific [place] Urine Protein Urine Glucose (UA) Urine Ketones Urine Blood Urine Nitrite Ur Reducing Substances Urine Bilirubin Urine Ictotest Urine Urobilinogen Ur Leukocyte Esterase Urine WBC (Auto) Urine RBC (Auto) U Epithel Cells (Auto) Urine Mucus Blood Type Antibody Screen Crossmatch
[2021-02-10] MEDS ORDERED: SODIUM FERRIC GLUCON/SUCRO 125 MG in SODIUM CHLORIDE 0.9% 100 ML IV ONE (01:30)
[2021-02-10] MEDS: methylPREDNISolone Sod Succinate 40 MG/1 ML INJ IV SCH ×3 (02:26→21:45)
[2021-02-10 06:19] LABS: Mean Corpuscular HGB Conc 30 % (32-34); Platelet Count 396 K/mm3 (140-440); Red Blood Count 4.86 M/mm3 (3.65-5.03)
[2021-02-10 06:21] LABS: Hematocrit 28.6 % (35.5-45.6); Hemoglobin 8.5 gm/dl (11.8-15.2); Mean Corpuscular Volume 59 fl (84-94); Red Cell Distribution Width 31.8 % (13.2-15.2)
[2021-02-10 06:39] LABS: Calcium 8.9 mg/dL (8.4-10.2)
--- NOTE | 2021-02-10 10:14 | Discharge Summary ---
Providers - Providers Date of Admission: 02/08/21 20:00 Attending physician: TONY WOODS MD 02/08/21 Consult to Cardiac Rehabilitation [CONS] Routine Reason For Exam: Phase I 02/09/21 09:08 Consult to Physician [CONS] Routine Comment: Consulting Provider: BRAULIO SEPULVEDA Physician Instructions: Reason For Exam: DICKSON ON CKD 02/09/21 09:23 Consult to Physician [CONS] Routine Comment: Consulting Provider: PADDY ARZOLA Physician Instructions: Reason For Exam: SEVERE ANEMIA 02/09/21 10:06 Consult to Physician [CONS] Routine Comment: Consulting Provider: LEODAN PAUL Physician Instructions: Reason For Exam: anemia 02/09/21 10:07 Occupational Therapy Evaluate and Treat [CONS] Routine Comment: Reason For Exam: debility Physical Therapy Evaluation and Treat [CONS] Routine Comment: Reason For Exam: debility 02/10/21 02:26 Consult to Physician [CONS] Routine Comment: Consulting Provider: CHRISTIANNE CORCORAN Physician Instructions: Reason For Exam: tachycardia Primary care physician: JET PIERCER OPERATOR Hospitalization Reason for admission: Anemia Condition: Stable Hospital course: 60 YO Male with CVA, OA, HTN, HLD, Asthma, Obesity presents to ED for evaluation. Patient states "my chest hurts a little and I am a little short of breath". Patient states that he has experienced chest discomfort and shortness of breath over the past 2 days with worsening symptoms over the past 1 day. Patient states that pain is 8/10, intermittent, not worsened with exertion, not relieved with rest. Patient denies any generalized weakness. Patient also reports 20 pound weight loss over the past 1 month. Patient transported to [facility] via private vehicle for further care and evaluation of the aforementioned sym ptoms. The patient was seen and evaluated in the emergency department. All lab and imaging studies reviewed. Patient found to have symptomatic anemia secondary to hemoglobin of six. Patient found to have systemic inflammatory response syndrome complicated by acute kidney injury with acute tubular necrosis, as well as uncontrolled hypertension. Patient admitted to medical floor and initiated on IV antibiotic therapy as well as chest pain protocol. D-dimer is ordered and is pending at time of admission. VQ scan was also ordered and pending at time of admission. Patient denies fever, chills, palpitation, productive cough, skin rash, recent ill contacts, unilateral leg swelling, calf pain, individual/family history of DVT/PE/bleeding/blood clotting disorders, prolonged travel. Prior admission on 12/23/2017 reviewed. All medication listed at time of admission has been reconciled. Advanced care planning conducted in ED. Chest Pain: Serial cardiac enzymes, EKG, D-dimer, VQ scan ordered and is pending at time of admission. 02/09: GI, consult as patient has a concern for possible pulmonary embolism, will also obtain PT/OT eval, the patient will follow with outpatient Ortho for the knee pain. Possible arthritis, will also move forward to start on abx emperically, patient had an athrocentesis at the doctors office. Renal consulted also due to worsening renal function PT/OT as patient is unable to bare weight on right knee due to pain. 02/10: Anemia has improved. Patient with significant debility with increased heart rate with ambulation but discharged from physical therapy service I still think that the patient will benefit from outpatient physical therapy. He does have some concern about his home environment as he has a 3 flights of steps to go for his back from. A bedside commode is being ordered. And case management to assist with safety of discharge at this time. 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 He is also to follow with manager specialty he does have some high signal failure that was noted. And he will continue to see his orthopedic doctor for noted fluid right knee. Stable but severe osteoarthritis noted. The only concern I have with the increasing heart rate with ambulation although at rest is short he does not have any or exhibit any shortness of breath even with the exercise is possibility of a pulmonary embolism although I think this is less likely as chest x-ray was negative and Doppler of lower extremities are negative. Will check an echocardiogram prior to discharge (1) Systemic inflammatory response syndrome Current Visit: Yes Status: Acute Plan to address problem: CBC, CMP, IV antibiotic therapy, supplemental oxygen, supportive care, repeat CBC in a.m. Chest x-ray, urinalysis. (2) Acute kidney injury (DICKSON) with acute tubular necrosis (ATN) Current Visit: Yes Status: Acute Plan to address problem: IV fluid resuscitation therapy, monitor urine output every shift, BMP, repeat BMP in a.m. to monitor serum creatinine as well as GFR. (3) Symptomatic anemia Current Visit: Yes Status: Acute Plan to address problem: Packed red blood cell transfusion, iron replacement therapy, patient is Hemoccult negative. Patient counseled regarding need for outpatient colonoscopy to evaluate for GI malignancy. (4) Accelerated hypertension Current Visit: Yes Status: Acute Plan to address problem: Monitor blood pressure every shift, continue medical management. (5) Obesity (BMI 30.0-34.9) Current Visit: Yes Status: Acute Plan to address problem: Patient counseled regarding balanced diet, increase physical activity discharge. +15 minutes. Severe but stable osteoarthritis. Rule out malignancy Disposition: [id number] HOME UNDER HOME HLTH Final Discharge Diagnosis (Prints w/discharge instructions): Severe anemia Time spent for discharge: 35 minutes Core Measure Documentation - Palliative Care Palliative Care/ Comfort Measures: Not Applicable - Core Measures Any of the following diagnoses?: none Exam - Physical Exam Narrative exam: VITAL SIGNS: Reviewed. GENERAL: The patient appears normally developed, Vital signs as documented. HEAD: No signs of head trauma. EYES: Pupils are equal. Extraocular motions intact. EARS: Hearing grossly intact. MOUTH: Oropharynx is normal. NECK: No adenopathy, no JVD. CHEST: Chest with clear breath sounds bilaterally. No wheezes, rales, or rhonchi. CARDIAC: Regular rate and rhythm. S1 and S2, without murmurs, gallops, or rubs. VASCULAR: No Edema. Peripheral pulses normal and equal in all extremities. ABDOMEN: Soft, non tender and non distended. No rebound or guarding, and no masses palpated. Bowel Sounds normal. MUSCULOSKELETAL: Warmth on the right knee, incision, swelling, Limited rang of motion of all major joints. Extremities without clubbing, cyanosis or edema. NEUROLOGIC EXAM: Alert and oriented x 3 No focal sensory or strength deficits. Speech normal. Follows commands. PSYCHIATRIC: Mood normal. SKIN: detail exam as documented in skin assessment - Constitutional Vitals: Temp Pulse Resp BP Pulse Ox 98.4 F 92 H 18 147/82 100 02/10/21 04:42 02/10/21 04:42 02/10/21 04:42 02/10/21 04:42 02/10/21 08:39 Plan Activity: advance as tolerated, fall precautions Diet: low fat, renal Special Instructions: record daily weights, record daily BP diary, physical therapy, occupational therapy, home health RN Durable Medical Equipment Needed Upon Discharge: Bedside Commode Follow up with: PRIMARY CAREMD [Primary Care Provider] - 3-5 Days JULIO VILLASEÑOR MD [Staff Physician] - 7 Days APARNA TINAJERO MD [Staff Physician] - 7 Days BRAULIO SEPULVEDA DO [Staff Physician] - 7 Days PADDY ARZOLA MD [Staff Physician] - 7 Days Prescriptions: Ferrous Sulfate [Feosol 325 MG tab] 325 mg PO BID #60 tablet methylPREDNISolone [Medrol 4MG DOSEPAK (21 tabs)] 4 mg PO . DIR #1 tab.ds.pk HYDROcodone/APAP 7.5-325 [[place] 7.5-325 mg TAB] 1 each PO Q6HR PRN #15 tablet PRN Reason: Pain
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
[2021-02-10] MEDS: LISINOPRIL 40 MG TAB PO SCH (11:52)
[2021-02-10] MEDS: amLODIPine 10 MG TAB PO SCH (11:52)
[2021-02-10] MEDS: FERROUS SULFATE 325 MG TAB PO SCH ×2 (11:52→21:44)
[2021-02-10] MEDS: HYDROcodone/ACETAMINOPHEN 7.5-325MG TAB PO PRN ×2 (11:52→21:45)
--- NOTE | 2021-02-10 13:08 | Consultation ---
History of Present Illness - Reason for Consult acute renal failure, chronic renal failure - History of Present Illness Very pleasant 60-year-old -[place]in[place] male with history of hypertension, gout, chronic kidney disease stage IIIb presented to emergency department secondary to worsening shortness of breath. Found to be anemic, Hemoglobin down to 6.6 status post transfusion of 2 units of packed red blood cells. Patient VQ scan which not indicated normalities. CT scan of the abdomen did show questionable lesion on the pancreas. Nephrology consulted for acute on chronic kidney injury. Previous admission does show that his serum creatinine at that time was around 2.0. He was admitted at that time secondary to evaluation of DICKSON evaluated at that time for acute kidney injury likely underlying chronic kidney disease in the setting of right middle cerebral artery thrombus and CVA. Unknown what his previous baseline was prior to his admission in 2018 but has stayed stable and likely does have underlying chronic kidney disease stage IIIb at this time. Hematology was consulted and work-up was started for possible underlying paraproteinemia process given his presence of anemia and renal failure. Past History Past Medical History: arthritis, hypertension, hyperlipidemia, stroke, other (See HPI) Past Surgical History: appendectomy, cholecystectomy, total hip replacement, bowel surgery Social history: single. denies: smoking, alcohol abuse, prescription drug abuse Family history: diabetes, hypertension Medications and Allergies Allergies Allergy/AdvReac Type Severity Reaction Status Date / Time No Known Allergies Allergy Verified 11/28/20 11:19 Home Medications Medication Instructions Recorded Confirmed Last Taken Type AtorvaSTATin [Lipitor] 40 mg PO QHS #30 tablet 12/31/17 11/28/20 Unknown Rx Doxazosin Mesylate [Cardura] 2 mg PO QPM #30 tablet 12/31/17 11/28/20 Unknown Rx Lisinopril [Zestril] 40 mg PO QDAY #30 tablet 12/31/17 11/28/20 Unknown Rx amLODIPine 10 mg PO QDAY #30 tablet 12/31/17 11/28/20 Unknown Rx Ferrous Sulfate [Feosol 325 MG tab] 325 mg PO BID #60 tablet 02/10/21 Unknown Rx HYDROcodone/APAP 7.5-325 [[place] 1 each PO Q6HR PRN #15 tablet 02/10/21 Unknown Rx 7.5-325 mg TAB] methylPREDNISolone [Medrol 4MG 4 mg PO . DIR #1 tab.ds.pk 02/10/21 Unknown Rx DOSEPAK (21 tabs)] Active Meds: Active Medications Acetaminophen (Acetaminophen 325 Mg Tab) 650 mg PO Q4H PRN PRN Reason: Pain MILD(1-3)/Fever >100.5/MCGHEE Hydrocodone Bitart/Acetaminophen (Hydrocodone/Acetaminophen 7.5-325mg Tab) 1 each PO Q6HR PRN PRN Reason: PAIN Last Admin: 02/10/21 11:52 Dose: 1 each Documented by: Albuterol (Albuterol 2.5 Mg/3 Ml Nebu) 2.5 mg IH Q4HRT PRN PRN Reason: Shortness Of Breath Amlodipine Besylate (Amlodipine 10 Mg Tab) 10 mg PO QDAY [facility] Last Admin: 02/10/21 11:52 Dose: 10 mg Documented by: Atorvastatin Calcium (Atorvastatin 40 Mg Tab) 40 mg PO QHS [facility] Last Admin: 02/09/21 21:11 Dose: 40 mg Documented by: Doxazosin Mesylate (Doxazosin 1 Mg Tab) 2 mg PO QPM [facility] Last Admin: 02/09/21 17:31 Dose: 2 mg Documented by: Ferrous Sulfate (Ferrous Sulfate 325 Mg Tab) 325 mg PO BID [facility] Last Admin: 02/10/21 11:52 Dose: 325 mg Documented by: Hydralazine HCl (Hydralazine 20 Mg/1 Ml Inj) 10 mg IV Q4H PRN PRN Reason: Hypertension Last Admin: 02/09/21 12:33 Dose: 10 mg Documented by: Ceftriaxone Sodium (Rocephin/Ns 1 Gm/50 Ml) 1 gm in 50 mls @ 100 mls/hr IV Q24H [facility]; Protocol Stop: 02/12/21 23:59 Last Admin: 02/09/21 20:20 Dose: 100 mls/hr Documented by: Lisinopril (Lisinopril 40 Mg Tab) 40 mg PO QDAY [facility] Last Admin: 02/10/21 11:52 Dose: 40 mg Documented by: Methylprednisolone Sodium Succinate (Methylprednisolone Sod Succinate 40 Mg/1 Ml Inj) 80 mg IV Q12HR [facility] Last Admin: 02/10/21 02:26 Dose: 80 mg Documented by: Morphine Sulfate (Morphine 2 Mg/1 Ml Inj) 2 mg IV Q4H PRN PRN Reason: Pain, Moderate (4-6) Ondansetron HCl (Ondansetron 4 Mg/2 Ml Inj) 4 mg IV Q8H PRN PRN Reason: Nausea And Vomiting Sodium Chloride (Sodium Chloride 0.9% 10 Ml Flush Syringe) 10 ml IV BID JOSIE Last Admin: 02/10/21 11:53 Dose: Not Given Documented by: Sodium Chloride (Sodium Chloride 0.9% 10 Ml Flush Syringe) 10 ml IV PRN PRN PRN Reason: LINE FLUSH Sodium Chloride (Sodium Chloride 0.9% 10 Ml Flush Syringe) 10 ml IV PRN PRN PRN Reason: LINE FLUSH Tramadol HCl (Tramadol 50 Mg Tab) 50 mg PO Q6H PRN PRN Reason: Pain, Moderate (4-6) Review of Systems All systems: negative Constitutional: fatigue, weakness Exam - Vital Signs Vital signs: Vital Signs Temp Pulse Resp BP Pulse Ox 98.4 F 94 H 15 179/96 100 02/08/21 11:45 02/08/21 11:45 02/08/21 11:45 02/08/21 11:45 02/08/21 11:45 - General Appearance General appearance: well-developed, appears stated age EENT: ATNC Neck: Present: neck supple Respiratory: Clear to Ascultation Heart: regular Gastrointestinal: Present: normal Integumentary: no rash Neurologic: no focal deficit Musculoskeletal: Present: deferred Psychiatric: cooperative Results - Lab Results 02/10/21 05:42 02/10/21 05:42 Most recent lab results Calcium 8.9 mg/dL (8.4-10.2) 02/10/21 05:42 Assessment and Plan - Patient Problems (1) Acute kidney injury superimposed on chronic kidney disease Current Visit: Yes Status: Acute Plan to address problem: DICKSON on chronic kidney disease patient likely has chronic kidney disease stage IIIb with mild DICKSON on baseline CKD during this admission. Previous renal ultrasound did not show any acute abnormalities. Urinalysis is bland at this time. Patient is actually pending discharge today DICKSON on chronic kidney disease patient likely has chronic kidney disease stage IIIb with mild DICKSON on baseline CKD during this admission. Previous renal ultrasound did not show any acute abnormalities. Urinalysis is bland at this time. Patient is actually pending discharge today and I do agree that the majority of his work-up can be done as an outpatient given stability of overall renal function. Have given patient more follow-up information and would like him to follow-up with us 1 week post discharge. (2) Anemia in chronic kidney disease (CKD) Current Visit: Yes Status: Acute Plan to address problem: .Would recommend close follow-up with hematology for assessment of MATILDE therapy as an outpatient along with current work-up for possible myeloma and other p araproteinemia diseases. Recommend follow-up with hematology. (3) Hypertensive chronic kidney disease with stage 1 through stage 4 chronic kidney disease, or unspecified chronic kidney disease Current Visit: Yes Status: Chronic Plan to address problem: Will monitor blood pressures under the current regimen
[2021-02-10] MEDS: MORPHINE 2 MG/1 ML INJ IV PRN (17:08)
[2021-02-10] MEDS: DOXAZOSIN 1 MG TAB PO SCH (17:08)
[2021-02-10] MEDS: cefTRIAXone/NS 1 GM/50 ML 1 GM/50 ML BAG IV SCH (19:59)
[2021-02-11] MEDS: MORPHINE 2 MG/1 ML INJ IV PRN ×2 (04:03→09:59)
[2021-02-11 06:37] VITALS: BP 146/90
[2021-02-11 08:02] LABS: Hematocrit 26.5 % (35.5-45.6); Hemoglobin 8.1 gm/dl (11.8-15.2); Mean Corpuscular HGB Conc 31 % (32-34); Platelet Count 400 K/mm3 (140-440); Red Blood Count 4.42 M/mm3 (3.65-5.03)
[2021-02-11 08:04] LABS: Mean Corpuscular Volume 60 fl (84-94); Red Cell Distribution Width 33.1 % (13.2-15.2)
--- NOTE | 2021-02-11 09:20 | Consultation ---
History of Present Illness Consult date: 02/10/21 Requesting physician: GIOVANNA WEBBER Consult reason: tachycardia History of present illness: Pt is a 60-year-old AA male who presented with complaints of SOB and chest pain x 2-3 days prior to arrival. SOB present at rest; however, noted more with exertion while performing light tasks at home. Pt describes chest pain as intermittent sub-sternal "stabbing" chest pain. Non-radiating. Episodes last approximately 1 min each. Sometimes associated with lightheadedness. No aggravating or reliving factors. Trop neg x 4. ECG reveals no acute ischemic changes. CXR reveals no acute findings. Of note, pt was found to be severely anemic upon arrival, s/p 2u pRBCs thus far. He reports constipation and "maroon-colored stool" x 3 days prior to arrival. He has not noticed any melena since. No other signs of bleeding. Also of note, pt states that for the past 2-3 months, he has been eating "white malini." He also reports eating dried cement on one occasion a few weeks ago. He notes that his mother had a hx of pica. Lastly, pt reports unintentional weight loss of 20 lbs in 30 days. Echo 11/2017 - EF 55-60%, mild concentric LVH, trace MR, trace TR. Echo 03/2018 - EF 55-60%, mod concentric LVH, grade 1 diastolic dysfxn. Past History Past Medical History: arthritis, diabetes, hypertension, hyperlipidemia, stroke Past Surgical History: appendectomy, cholecystectomy, total hip replacement, bowel surgery. denies: valve replacement, CABG, PTCA Social history: single. denies: smoking, alcohol abuse Family history: diabetes, hypertension Medications and Allergies Allergies Allergy/AdvReac Type Severity Reaction Status Date / Time No Known Allergies Allergy Verified 11/28/20 11:19 Home Medications Medication Instructions Recorded Confirmed Last Taken Type AtorvaSTATin [Lipitor] 40 mg PO QHS #30 tablet 12/31/17 11/28/20 Unknown Rx Doxazosin Mesylate [Cardura] 2 mg PO QPM #30 tablet 12/31/17 11/28/20 Unknown Rx Lisinopril [Zestril] 40 mg PO QDAY #30 tablet 12/31/17 11/28/20 Unknown Rx amLODIPine 10 mg PO QDAY #30 tablet 12/31/17 11/28/20 Unknown Rx Ferrous Sulfate [Feosol 325 MG tab] 325 mg PO BID #60 tablet 02/10/21 Unknown Rx HYDROcodone/APAP 7.5-325 [[place] 1 each PO Q6HR PRN #15 tablet 02/10/21 Unknown Rx 7.5-325 mg TAB] methylPREDNISolone [Medrol 4MG 4 mg PO . DIR #1 tab.ds.pk 02/10/21 Unknown Rx DOSEPAK (21 tabs)] Active Meds: Active Medications Acetaminophen (Acetaminophen 325 Mg Tab) 650 mg PO Q4H PRN PRN Reason: Pain MILD(1-3)/Fever >100.5/MCGHEE Hydrocodone Bitart/Acetaminophen (Hydrocodone/Acetaminophen 7.5-325mg Tab) 1 each PO Q6HR PRN PRN Reason: PAIN Last Admin: 02/10/21 11:52 Dose: 1 each Documented by: Albuterol (Albuterol 2.5 Mg/3 Ml Nebu) 2.5 mg IH Q4HRT PRN PRN Reason: Shortness Of Breath Amlodipine Besylate (Amlodipine 10 Mg Tab) 10 mg PO QDAY [facility] Last Admin: 02/10/21 11:52 Dose: 10 mg Documented by: Atorvastatin Calcium (Atorvastatin 40 Mg Tab) 40 mg PO QHS [facility] Last Admin: 02/09/21 21:11 Dose: 40 mg Documented by: Doxazosin Mesylate (Doxazosin 1 Mg Tab) 2 mg PO QPM [facility] Last Admin: 02/10/21 17:08 Dose: 2 mg Documented by: Ferrous Sulfate (Ferrous Sulfate 325 Mg Tab) 325 mg PO BID [facility] Last Admin: 02/10/21 11:52 Dose: 325 mg Documented by: Hydralazine HCl (Hydralazine 20 Mg/1 Ml Inj) 10 mg IV Q4H PRN PRN Reason: Hypertension Last Admin: 02/09/21 12:33 Dose: 10 mg Documented by: Ceftriaxone Sodium (Rocephin/Ns 1 Gm/50 Ml) 1 gm in 50 mls @ 100 mls/hr IV Q24H [facility]; Protocol Stop: 02/12/21 23:59 Last Admin: 02/09/21 20:20 Dose: 100 mls/hr Documented by: Lisinopril (Lisinopril 40 Mg Tab) 40 mg PO QDAY [facility] Last Admin: 02/10/21 11:52 Dose: 40 mg Documented by: Methylprednisolone Sodium Succinate (Methylprednisolone Sod Succinate 40 Mg/1 Ml Inj) 80 mg IV Q12HR [facility] Last Admin: 02/10/21 14:24 Dose: 80 mg Documented by: Morphine Sulfate (Morphine 2 Mg/1 Ml Inj) 2 mg IV Q4H PRN PRN Reason: Pain, Moderate (4-6) Last Admin: 02/10/21 17:08 Dose: 2 mg Documented by: Ondansetron HCl (Ondansetron 4 Mg/2 Ml Inj) 4 mg IV Q8H PRN PRN Reason: Nausea And Vomiting Sodium Chloride (Sodium Chloride 0.9% 10 Ml Flush Syringe) 10 ml IV BID [facility] Last Admin: 02/10/21 11:53 Dose: Not Given Documented by: Sodium Chloride (Sodium Chloride 0.9% 10 Ml Flush Syringe) 10 ml IV PRN PRN PRN Reason: LINE FLUSH Sodium Chloride (Sodium Chloride 0.9% 10 Ml Flush Syringe) 10 ml IV PRN PRN PRN Reason: LINE FLUSH Tramadol HCl (Tramadol 50 Mg Tab) 50 mg PO Q6H PRN PRN Reason: Pain, Moderate (4-6) Review of Systems Constitutional: weight loss (> 20 lbs in 30 days), fatigue, no fever, no chills, no sweats Ears, nose, mouth and throat: no nasal congestion, no sore throat Cardiovascular: chest pain, lightheadedness, shortness of breath, dyspnea on exertion, no orthopnea, no palpitations, no edema, no syncope, no paroxysmal nocturnal dyspnea, no claudication Respiratory: shortness of breath, dyspnea on exertion, no cough, no pain on inspiration Gastrointestinal: constipation, melena, loss of appetite, other (pica), no abdominal pain, no nausea, no vomiting, no diarrhea Genitourinary Male: no dysuria, no hematuria, no flank pain Musculoskeletal: no neck stiffness, no neck pain Integumentary: no rash, no wounds Neurological: no head injury, no paralysis, no weakness, no parathesias, no numbness, no tingling, no seizures, no syncope, no vertigo, no headaches Endocrine: no cold intolerance, no heat intolerance Hematologic/Lymphatic: no easy bruising, no easy bleeding Allergic/Immunologic: no anaphylaxis Physical Examination Last Vital Signs Temp 98.5 F 02/10/21 16:27 Pulse 117 H 02/10/21 16:27 Resp 19 02/10/21 16:27 BP 147/77 02/10/21 16:27 Pulse Ox 95 02/10/21 16:27 General appearance: no acute distress HEENT: Positive: EOMI, Normocephaly, Mucus Membranes Moist Neck: Positive: neck supple, trachea midline. Negative: JVD/HJR Cardiac: Positive: Regular Rhythm, S1/S2, Tachycardia. Negative: Audible Murmur Lungs: Positive: clear to auscultation Neuro: Positive: Grossly Intact Abdomen: Positive: Soft. Negative: Tender Skin: Negative: Rash Musculoskeletal: Pain in Joint (R knee) Extremities: Present: upper extr. pulses, lower extr. pulses. Absent: edema Results 02/10/21 05:42 02/10/21 05:42 CBC 02/10/21 Range/Units 05:42 WBC 10.8 (4.5-11.0) K/mm3 RBC 4.86 (3.65-5.03) M/mm3 Hgb 8.5 L (11.8-15.2) gm/dl Hct 28.6 L (35.5-45.6) % Plt Count 396 (140-440) K/mm3 Comprehensive Metabolic Panel 02/10/21 Range/Units 05:42 Sodium 135 L (137-145) mmol/L Potassium 4.7 (3.6-5.0) mmol/L Chloride 102.6 (98-107) mmol/L Carbon Dioxide 22 (22-30) mmol/L BUN 15 (9-20) mg/dL Creatinine 2.1 H (0.8-1.3) mg/dL Glucose 152 H (75-100) mg/dL Calcium 8.9 (8.4-10.2) mg/dL - Imaging and Cardiology Echo: pending, other (03/2018 - EF 55-60%, mod concentric LVH, grade 1 diastolic dysfxn) EKG: report reviewed, image reviewed - EKG Interpretation EKG: no acute changes EKG interpretations - Telemetry EKG Rhythm: Sinus Tachycardia - EKG Sinus rhythms and dysrhythmias: sinus rhythm Repolarization changes or abnormalities: nonspecific abnormality, ST segment, and/or T wave Assessment and Plan Echo pending. V/Q scan revealed intermediate probability of PE w/single segmental perfusion defect involving apical segment of RUL without corresponding abnormality. Chest CTA for confirmatory testing of PE deferred due to renal fxn. Unable to initiate anticoagulation at this time due to severe anemia requiring pRBCs. F/u CBC in AM. If stable, may be able to initiate heparin vs Eliquis in AM. Sinus tachycardia could be physiologic in the setting of anemia or compensatory in the setting of acute PE w/RV strain. Await echo results. Recommend GI re-evaluation if Hgb is not stable in AM, especially in the setting of pt report of melena x 3 days ago and self-reported pica. Consider also possible Psych vs Nutrition eval for assistance with mgmt of pica potentially presenting hazards to health. AMI r/o. Can consider ischemic workup as an outpatient when clinically stable. Pt seen in conjunction with Dr. Nixon, who agrees with the assessment and plan of care. - Patient Problems (1) Pica in adults Current Visit: Yes Status: Acute (2) Melena Current Visit: Yes Status: Acute (3) Symptomatic anemia Current Visit: Yes Status: Acute (4) Pulmonary embolism Current Visit: Yes Status: Suspected (5) Sinus tachycardia Current Visit: Yes Status: Acute (6) Chest pain Current Visit: Yes Status: Acute Qualifiers: Qualified Code(s): R07.9 - Chest pain, unspecified (7) Acute kidney injury superimposed on chronic kidney disease Current Visit: Yes Status: Acute (8) HTN (hypertension) Current Visit: Yes Status: Chronic Qualifiers: Hypertension type: essential hypertension Qualified Code(s): I10 - Essential (primary) hypertension (9) HLD (hyperlipidemia) Current Visit: Yes Status: Chronic Qualifiers: Hyperlipidemia type: mixed hyperlipidemia Qualified Code(s): E78.2 - Mixed hyperlipidemia (10) Obesity (BMI 30.0-34.9) Current Visit: Yes Status: Chronic (11) LUÍS (obstructive sleep apnea) Current Visit: Yes Status: Chronic (12) H/O type 2 diabetes mellitus Current Visit: Yes Status: Chronic (13) H/O: CVA (cerebrovascular accident) Current Visit: Yes Status: Chronic
--- NOTE | 2021-02-11 09:57 | Discharge Summary ---
Providers - Providers Date of Admission: 02/08/21 20:00 Attending physician: TONY WOODS MD 02/08/21 Consult to Cardiac Rehabilitation [CONS] Routine Reason For Exam: Phase I 02/09/21 09:08 Consult to Physician [CONS] Routine Comment: Consulting Provider: BRAULIO SEPULVEDA Physician Instructions: Reason For Exam: DICKSON ON CKD 02/09/21 09:23 Consult to Physician [CONS] Routine Comment: Consulting Provider: PADDY ARZOLA Physician Instructions: Reason For Exam: SEVERE ANEMIA 02/09/21 10:06 Consult to Physician [CONS] Routine Comment: Consulting Provider: LEODAN PAUL Physician Instructions: Reason For Exam: anemia 02/09/21 10:07 Occupational Therapy Evaluate and Treat [CONS] Routine Comment: Reason For Exam: debility Physical Therapy Evaluation and Treat [CONS] Routine Comment: Reason For Exam: debility 02/10/21 02:26 Consult to Physician [CONS] Routine Comment: Consulting Provider: CHRISTIANNE CORCORAN Physician Instructions: Reason For Exam: tachycardia 02/10/21 10:20 Consult to Case Management [CONS] Routine Services Needed at Discharge: Slider Assembler Notified:: NO Additional Physician Instructions: CONCERN ABOUT HOME ENVIROMENT 02/10/21 16:17 Physical Therapy Evaluation and Treat [CONS] Routine Comment: Reason For Exam: Eval for gait weakness. Primary care physician: AGRICULTURAL EDUCATION INSTRUCTOR Hospitalization Reason for admission: Anemia Condition: Stable Hospital course: 60 YO Male with CVA, OA, HTN, HLD, Asthma, Obesity presents to ED for evaluation. Patient states "my chest hurts a little and I am a little short of breath". Patient states that he has experienced chest discomfort and shortness of breath over the past 2 days with worsening symptoms over the past 1 day. Patient states that pain is 8/10, intermittent, not worsened with exertion, not relieved with rest. Patient denies any generalized weakness. Patient also reports 20 pound weight loss over the past 1 month. Patient transported to [facility] via private vehicle for further care and evaluation of the aforementioned symptoms. The patient was seen and evaluated in the emergency department. All lab and imaging studies reviewed. Patient found to have symptomatic anemia secondary to hemoglobin of six. Patient found to have systemic inflammatory response syndrome complicated by acute kidney injury with acute tubular necrosis, as well as uncontrolled hypertension. Patient admitted to medical floor and initiated on IV antibiotic therapy as well as chest pain protocol. D- dimer is ordered and is pending at time of admission. VQ scan was also ordered and pending at time of admission. Patient denies fever, chills, palpitation, productive cough, skin rash, recent ill contacts, unilateral leg swelling, calf pain, individual/family history of DVT/PE/bleeding/blood clotting disorders, prolonged travel. Prior admission on 12/23/2017 reviewed. All medication listed at time of admission has been reconciled. Advanced care planning conducted in ED. Chest Pain: Serial cardiac enzymes, EKG, D-dimer, VQ scan ordered and is pending at time of admission. 02/09: GI, consult as patient has a concern for possible pulmonary embolism, will also obtain PT/OT eval, the patient will follow with outpatient Ortho for the knee pain. Possible arthritis, will also move forward to start on abx empe rically, patient had an athrocentesis at the doctors office. Renal consulted also due to worsening renal function PT/OT as patient is unable to bare weight on right knee due to pain. 02/10: Anemia has improved. Patient with significant debility with increased heart rate with ambulation but discharged from physical therapy service I still think that the patient will benefit from outpatient physical therapy. He does have some concern about his home environment as he has a 3 flights of steps to go for his back from. A bedside commode is being ordered. And case management to assist with safety of discharge at this time. I recommended outpatient follow-up with GI and the importance of this has been discussed extensively including but not limited to malignancy and also myeloma he will follow with blast furnace helper. He is also to follow with student ministries director he does have some high signal failure that was noted. And he will continue to see his orthopedic doctor for noted fluid right knee. Stable but severe osteoarthritis noted. The only concern I have with the increasing heart rate with ambulation although at rest is short he does not have any or exhibit any shortness of breath even with the exercise is possibility of a pulmonary embolism although I think this is less likely as chest x-ray was negative and Doppler of lower extremities are negative. Will check an echocardiogram prior to discharge 02/11: Per physical therapy evaluation yesterday patient ambulated 105feet with no discomfort. Cardiology input appreciated and nephrology input patient will continue outpatient work-up with hematology cardiology and blast furnace helper. Extensive counseling provided to the patient. No respiratory distress noted at this time. Mild decrease in hemoglobin to 8.1. We will continue outpatient evaluation of this and this has been discussed with the patient bedside commode also ordered for the patient. Case management was in contact with the family. Pain in the left knee has decreased significantly patient will continue following up with orthopedic surgeon. (1) Systemic inflammatory response syndrome Current Visit: Yes Status: Acute Plan to address problem: CBC, CMP, IV antibiotic therapy, supplemental oxygen, supportive care, repeat CBC in a.m. Chest x-ray, urinalysis. (2) Acute kidney injury (DICKSON) with acute tubular necrosis (ATN) Current Visit: Yes Status: Acute Plan to address problem: IV fluid resuscitation therapy, monitor urine output every shift, BMP, repeat BMP in a.m. to monitor serum creatinine as well as GFR. (3) Symptomatic anemia Current Visit: Yes Status: Acute Plan to address problem: Packed red blood cell transfusion, iron replacement therapy, patient is Hemoccult negative. Patient counseled regarding need for outpatient colonoscopy to evaluate for GI malignancy. (4) Accelerated hypertension Current Visit: Yes Status: Acute Plan to address problem: Monitor blood pressure every shift, continue medical management. (5) Obesity (BMI 30.0-34.9) Current Visit: Yes Status: Acute Plan to address problem: Patient counseled regarding balanced diet, increase physical activity discharge. +15 minutes. Severe but stable osteoarthritis. Rule out malignancy Disposition: DC/TX-06 HOME UNDER HOME [facility] Final Discharge Diagnosis (Prints w/discharge instructions): Severe anemia Time spent for discharge: 35 minutes Disposition: DC/TX-06 HOME UNDER HOME [facility] Final Discharge Diagnosis (Prints w/discharge instructions): Severe anemia Time spent for discharge: 35 minutes Core Measure Documentation - Palliative Care Palliative Care/ Comfort Measures: Not Applicable - Core Measures Any of the following diagnoses?: none Exam - Physical Exam Narrative exam: VITAL SIGNS: Reviewed. GENERAL: The patient appears normally developed, Vital signs as documented. HEAD: No signs of head trauma. EYES: Pupils are equal. Extraocular motions intact. EARS: Hearing grossly intact. MOUTH: Oropharynx is normal. NECK: No adenopathy, no JVD. CHEST: Chest with clear breath sounds bilaterally. No wheezes, rales, or rhonchi. CARDIAC: Regular rate and rhythm. S1 and S2, without murmurs, gallops, or rubs. VASCULAR: No Edema. Peripheral pulses normal and equal in all extremities. ABDOMEN: Soft, non tender and non distended. No rebound or guarding, and no masses palpated. Bowel Sounds normal. MUSCULOSKELETAL: Warmth on the right knee, incision, swelling, Limited rang of motion of all major joints. Extremities without clubbing, cyanosis or edema. NEUROLOGIC EXAM: Alert and oriented x 3 No focal sensory or strength deficits. Speech normal. Follows commands. PSYCHIATRIC: Mood normal. SKIN: detail exam as documented in skin assessment - Constitutional Vitals: Temp Pulse Resp BP Pulse Ox 97.9 F 102 H 18 146/90 100 02/11/21 05:02/11/21 05:29 02/11/21 05:02/11/21 05:02/11/21 05:29 Plan Activity: advance as tolerated, fall precautions Diet: low fat, renal Special Instructions: record daily weights, record daily BP diary, physical therapy, occupational therapy Follow up with: BRAULIO SEPULVEDA DO [Staff Physician] - 7 Days JULIO VILLASEÑOR MD [Staff Physician] - 7 Days PADDY ARZOLA MD [Staff Physician] - 7 Days PRIMARY CARE, [Primary Care Provider] - 3-5 Days APARNA TINAJERO MD [Staff Physician] - 7 Days Prescriptions: Ferrous Sulfate [Feosol 325 MG tab] 325 mg PO BID #60 tablet methylPREDNISolone [Medrol 4MG DOSEPAK (21 tabs)] 4 mg PO . DIR #1 tab.ds.pk HYDROcodone/APAP 7.5-325 [[place] 7.5-325 mg TAB] 1 each PO Q6HR PRN #15 tablet PRN Reason: Pain
[2021-02-11] MEDS: methylPREDNISolone Sod Succinate 40 MG/1 ML INJ IV SCH (09:59)
[2021-02-11] MEDS: amLODIPine 10 MG TAB PO SCH (10:00)
[2021-02-11] MEDS: LISINOPRIL 40 MG TAB PO SCH (10:00)
[2021-02-11] MEDS: FERROUS SULFATE 325 MG TAB PO SCH (10:00)
--- NOTE | 2021-02-13 17:21 | Electrocardiograph Report ---
[facility] Test Date: 2021-02-08 Test Time: 11:47:50 Pat Name: WHITLEY ARCHULETA Department: Room: A377 Gender: M V Block Saw Operator: NABIL : 1960 Requested By: ED DOC Order Number: [id number] Reading MD: Rudy Pardo Measurements Intervals [place] Rate: 91 P: 76 ID: [id number] QRS: 26 QRSD: 79 T: 60 QT: 335 QTc: 414 Interpretive Statements Sinus rhythm Nonspecific anteroseptal ST elevation, consider acute injury No previous ECG available for comparison Electronically Signed On 02-13-2021 17:21:22 EDT by Rudy Pardo
--- NOTE | 2021-02-13 17:29 | Electrocardiograph Report ---
[facility] Test Date: 2021-02-09 Test Time: 07:37:18 Pat Name: WHITLEY ARCHULETA Department: Room: A377 1 Gender: M Numerical Control Programmer: CAROLE : 1960 Requested By: TEODORO KRAUSE Order Number: [id number] Reading MD: Rudy Pardo Measurements Intervals [place] Rate: 93 P: 81 [place]: 157 QRS: 7 QRSD: 79 T: 86 QT: 361 QTc: 448 Interpretive Statements Sinus rhythm Old anteroseptal infarct Compared to ECG 02/08/2021 11:47:50 No significant changes Electronically Signed On 02-13-2021 17:29:19 EDT by Rudy Pardo
--- NOTE | 2021-02-13 17:32 | Electrocardiograph Report ---
[facility] Test Date: 2021-02-09 Test Time: 12:10:02 Pat Name: WHITLEY ARCHULETA Department: Room: A377 1 Gender: M Fighter Pilot: ONESIMO : 1960 Requested By: TEODORO KRAUSE Order Number: [id number] Reading MD: Rudy Pardo Measurements Intervals [place] Rate: 98 P: 81 [place]: 157 QRS: 6 QRSD: 76 T: 87 QT: 337 QTc: 431 Interpretive Statements Sinus rhythm Atrial premature complex Anterior infarct, old Nonspecific T abnormalities, lateral leads Compared to ECG 02/09/2021 07:37:18 Electronically Signed On 02-13-2021 17:32:23 EDT by Rudy Pardo
--- NOTE | 2021-02-13 17:37 | Electrocardiograph Report ---
[facility] Test Date: 2021-02-10 Test Time: 01:59:35 Pat Name: WHITLEY ARCHULETA Department: Room: A377 1 Gender: M Social Services Technician: LUZMA : 1960 Requested By: GIOVANNA WEBBER Order Number: [id number] Reading MD: Rudy Pardo Measurements Intervals [place] Rate: 100 P: 65 [place]: 161 QRS: -11 QRSD: 80 T: 66 QT: 348 QTc: 449 Interpretive Statements Sinus tachycardia Probable left atrial enlargement Anterior infarct, old Compared to ECG 02/09/2021 12:10:02 Electronically Signed On 02-13-2021 17:36:49 EDT by Rudy Pardo
[2021-02-14 05:43] LABS: Albumin 3.1 g/dL (3.8-4.8); Gamma Globulin 2.1 g/dL (0.8-1.7)
[2021-02-20 08:43] LABS: Hemoglobin A2 Prime SEE SCANNED RESULT
[2021-02-20 08:44] LABS: Hemoglobin Barts SEE SCANNED RESULT; Hemoglobin E SEE SCANNED RESULT; Hemoglobin G SEE SCANNED RESULT; Hemoglobin Lepore SEE SCANNED RESULT; Hemoglobin O-Arab SEE SCANNED RESULT; IEF Confirm SEE SCANNED RESULT; Interpretation SEE SCANNED RESULT; Sickle Solubility Test SEE SCANNED RESULT
== END 2021-02-11 10:30 | disposition home health service (06) | DRG 682 ==
LOC: ED 11:14 → 3A 20:00
PROVIDERS: ADMIT Internal Medicine; ATTEND Internal Medicine
PROC: 30233N1 Transfusion of Nonautologous Red Blood Cells into Peripheral Vein, Percutaneous Approach (ICD-10-PCS; principal; 2021-02-09)
DX: I12.9 Hypertensive chronic kidney disease with stage 1 through stage 4 chronic kidney disease, or unspecified chronic kidney disease (principal); N17.0 Acute kidney failure with tubular necrosis; R65.10 Systemic inflammatory response syndrome (SIRS) of non-infectious origin without acute organ dysfunction; E78.5 Hyperlipidemia, unspecified; E66.9 Obesity, unspecified; M10.9 Gout, unspecified; N18.32 Chronic kidney disease, stage 3b; E11.22 Type 2 diabetes mellitus with diabetic chronic kidney disease; D63.1 Anemia in chronic kidney disease; M17.0 Bilateral primary osteoarthritis of knee; D50.9 Iron deficiency anemia, unspecified; J45.909 Unspecified asthma, uncomplicated; Z68.30 Body mass index [BMI] 30.0-30.9, adult; Z79.899 Other long term (current) drug therapy; Z79.891 Long term (current) use of opiate analgesic; Z79.01 Long term (current) use of anticoagulants; Z96.643 Presence of artificial hip joint, bilateral; Z90.49 Acquired absence of other specified parts of digestive tract; Z86.73 Personal history of transient ischemic attack (TIA), and cerebral infarction without residual deficits; Z83.3 Family history of diabetes mellitus; Z82.49 Family history of ischemic heart disease and other diseases of the circulatory system
CPT/HCPCS: 36415; 71046; 74176; 78580; 80048; 80053; 80061; 81001; 82378; 84165; 84484; 85007; 85025; 85027; 85379; 86850; 86900; 86901; 86920; 93005; 93306; 93970; 96365; G0378; A9270-GY; A9540; J0360; J0696; J2270; J2916; J2920; J7040; P9016

== ENCOUNTER 2021-07-05 07:28 | Inpatient (IN) | payer MEDICAID ==
--- NOTE | 2021-06-27 10:39 | Anesthesia Consultation ---
Anesthesia Consult and Med Hx Date of service: 07/05/21 - Airway Anesthetic Teeth Evaluation: Poor (#17 "very loose," multiple missing teeth ) ROM Head & Neck: Adequate Mental/Hyoid Distance: Adequate Mallampati Class: Class III Intubation Access Assessment: Possibly Difficult - Pulmonary Exam CTA: Yes - Cardiac Exam Cardiac Exam: RRR - Pre-Operative Health Status ASA Pre-Surgery Classification: ASA3 Proposed Anesthetic Plan: General Nerve Block: Adductor canal - Pulmonary Hx Smoking: Yes (former smoker quit >1yr) Hx Asthma: Yes (no inhaler use >1yr) Hx Sleep Apnea: Yes (no CPAP) - Cardiovascular System Hx Hypertension: Yes Hx Heart Attack/AMI: No (EF 60-65% on TTE 01/2021) Hx Percutaneous Transluminal Coronary Angioplasty (PTCA): No Hx Cardia Arrhythmia: No (EKG 01/2021 SR) Hx Valvular Heart Disease: No - Central Nervous System Hx Seizures: Yes (remote hx) CVA: Yes (? TIA x2 >1 yr ago, no defecits) - Gastrointestinal Hx Gastroesophageal Reflux Disease: No - Endocrine Hx Renal Disease: Yes (CKD 3) Hx Liver Disease: Yes (hx HCV s/p treatment) Hx Non-Insulin Dependent Diabetes: Yes Hx Thyroid Disease: No - Hematic Hx Anemia: Yes - Other Systems Hx Substance Use: Yes (occasional THC; remote hx IVDU) Hx Obesity: Yes (BMI 30) - Additional Comments Anesthesia Medical History Comments: Surgery previously postponed pending PCP eval which is now done. Med list obtained and patient is not taking plavix. ASA to be held 7 days prior to surgery. No change in health since previously evaluated in pre-assessment. No hx anesthetic complications.
[2021-06-27 11:00] LABS: Calcium 9.4 mg/dL (8.4-10.2); Hematocrit 33.3 % (35.5-45.6); Hemoglobin 10.5 gm/dl (11.8-15.2); Mean Corpuscular HGB Conc 31 % (32-34); Mean Corpuscular Volume 75 fl (84-94); Platelet Count 329 K/mm3 (140-440); Red Blood Count 4.47 M/mm3 (3.65-5.03); Red Cell Distribution Width 16.4 % (13.2-15.2)
[2021-06-27 11:10] LABS: INR 0.98 (0.87-1.13)
[~2021-07-05 07:28] MED LIST: ACETAMINOPHEN 500 MG TAB PO SCH; BUPIVACAINE/PF (0.25%) 2.5 MG/ML 30 ML VIAL INFILTRATI ONE; GABAPENTIN 300 MG CAP PO NR; KETOROLAC 30 MG/1 ML INJ IV ONE; LACTATED RINGERS 1,000 ML IV SCH; MIDAZOLAM 2 MG/2 ML INJ IV NR; MORPHINE 10 MG/1 ML INJ IM ONE; SODIUM CHLORIDE 0.9% 50 ML VIAL INFILTRATI ONE; SODIUM CHLORIDE 0.9% IRR 1,500 ML BOTTLE IR ONE; SODIUM CHLORIDE 0.9% IRRIG SOLN 2000 ML IR ONE; TRANEXAMIC ACID 1,000 MG/10 ML IV ONE
[2021-07-05] MEDS ORDERED: ceFAZolin/Water 2 GM/20 ML 2 GM/20 ML SYRINGE IV NR (08:00)
[2021-07-05] MEDS ORDERED: cloNIDine 0.2 MG TAB PO SCH (10:00)
[2021-07-05] MEDS ORDERED: carvediloL 12.5 MG TAB PO SCH (10:00)
[2021-07-05] MEDS ORDERED: amLODIPine 10 MG TAB PO SCH (10:00)
--- NOTE | 2021-07-05 10:27 | Anesthesia Day of Surgery ---
Anesthesia Day of Surgery - Day of Surgery Patient Examined: Yes Patient H&P Reviewed: Yes Patient is NPO: Yes Beta Blockers: Yes
[2021-07-05] MEDS ORDERED: dexAMETHasone 4 MG/ML VIAL ONE (10:31)
[2021-07-05] MEDS ORDERED: cloNIDine/PF 1,000 MCG/10 ML VIAL EP ONE (10:32)
[2021-07-05] MEDS ORDERED: BUPIVACAINE/PF (0.5%) 5 MG/1 ML 30 ML VIAL INFILTRATI ONE (10:32)
[2021-07-05] MEDS ORDERED: HYDROmorphone 1 MG/1 ML INJ IV PRN (11:30)
[2021-07-05] MEDS ORDERED: ONDANSETRON 4 MG/2 ML INJ IV PRN ×2 (11:30→17:02)
[2021-07-05] MEDS: fentaNYL 100 MCG/2 ML INJ IV PRN ×2 (11:53→12:05)
[2021-07-05] MEDS ORDERED: BUPIVACAINE/PF (0.25%) 2.5 MG/ML 30 ML VIAL INFILTRATI ONE ×2 (12:39→15:39)
[2021-07-05] MEDS ORDERED: SODIUM CHLORIDE 0.9% 100 ML ONE ×2 (12:40→12:45)
[2021-07-05] MEDS ORDERED: SODIUM CHLORIDE 0.9% 50 ML ONE (12:40)
[2021-07-05] MEDS ORDERED: KETOROLAC 30 MG/1 ML INJ ONE (12:41)
[2021-07-05] MEDS ORDERED: MORPHINE 10 MG/1 ML INJ ONE (12:41)
[2021-07-05] MEDS ORDERED: TRANEXAMIC ACID 1,000 MG/10 ML ONE (12:45)
[2021-07-05] MEDS ORDERED: ONDANSETRON 4 MG/2 ML INJ ONE ×2 (13:28→15:25)
[2021-07-05] MEDS ORDERED: LIDOCAINE MPF (2%) 20 MG/1 ML VIAL 5 ML ONE (13:28)
[2021-07-05] MEDS ORDERED: fentaNYL 100 MCG/2 ML INJ ONE (13:28)
[2021-07-05] MEDS ORDERED: propofoL 200 MG/20 ML VIAL IV ONE (13:29)
[2021-07-05] MEDS ORDERED: HYDROmorphone 1 MG/1 ML INJ ONE (14:26)
[2021-07-05] MEDS ORDERED: TRANEXAMIC ACID 1,000 MG/10 ML IV ONE (14:41)
[2021-07-05] MEDS ORDERED: SODIUM CHLORIDE 0.9% IRRIG SOLN 2000 ML IR ONE (15:20)
[2021-07-05] MEDS ORDERED: SODIUM CHLORIDE 0.9% IRR 1,500 ML BOTTLE IR ONE (15:24)
[2021-07-05] MEDS ORDERED: MORPHINE 10 MG/1 ML INJ IM ONE (15:39)
[2021-07-05] MEDS ORDERED: KETOROLAC 30 MG/1 ML INJ IV ONE (15:39)
[2021-07-05] MEDS ORDERED: SODIUM CHLORIDE 0.9% 50 ML VIAL INFILTRATI ONE (15:39)
[2021-07-05] MEDS ORDERED: MORPHINE 2 MG/1 ML INJ IV PRN ×2 (16:03→17:08)
--- NOTE | 2021-07-05 16:13 | Procedure Note ---
Date of procedure: 07/05/21 Pre-op diagnosis: Severe arthritis right knee Post-op diagnosis: same Procedure: [Right] total knee replacement Procedure The patient was brought to the OR after being given a obturator nerve block and preoperative holding he was placed on the OR table supine position following induction elevation of anesthesia the patient is [right] lower extremity was prepped and draped in the usual sterile manner. A timeout procedure was done to identify the patient in the correct operative site. The leg was exsanguinated followed by inflation of the pneumatic tourniquet to 300 mmHg. A midline incision was made over the patella was taken down distally towards the tibial tubercle next the medial retinaculum was incised and the patella was inverted examination of the patient's knee joint revealed typical osteoarthritic changes with large bone spurs noted primarily in the medial compartment both the femoral and tibial's articular surfaces exhibited bare bone and large peripheral osteophytes next a large drill bit was used to enter the medullary canal this was followed by placement of the distal femoral cutting Jig the distal femur was resected approximately 8-9 mm of bone was removed at this time. Attention was turned to the patient's proximal tibia using a external alignme guide the bone was cut using the medial surface as the low point of care was taken to protect the medial collateral ligaments the tibial articular surface was sized, a #5 tibial based ray was selected this was followed by placement of the fixation hole or keel into the proximal tibial artery medullary canal. Attention was turned to the distal femur and using a 4 and 1 cutting block a #5 component was selected AP anterior and posterior as well as Thapa cuts were made a tibial ostomy femoral component was placed and the knee was then taken to a range of motion he appeared to have stability in both the flexion and extension FOLLOWING this the trial components were removed the knee was then copiously irrigated any remaining soft tissue and bony debris were removed at this time next the cement was next and following this the tibial components were inserted beginning with the based ray followed by the polyethylene insert The femoral component was added the excess were removed the knee was held in extension until the cement hardened following hardening of cement the knee was then brought back into of flexion any remaining soft tissue and bony debris were removed at this time. The wound again was irrigated and was closed in a standard routine fashion. Dressings were applied the patient tolerated the procedure there were no complications she was then taken to post anesthesia recovery Anesthesia: MAC, regional Surgeon: APARNA TINAJERO Metal Spray Operator: BRAYAN ROSARIO Estimated blood loss: 50-100ml Pathology: none Disposition: PACU
[2021-07-05] MEDS ORDERED: hydrALAZINE 20 MG/1 ML INJ ONE (16:14)
--- NOTE | 2021-07-05 17:25 | XRay Report ---
Right knee 2 views INDICATION: Postop FINDINGS: Extensive soft tissue gas from recent surgery. Right total knee arthroplasty is satisfactor y in position. Degenerative change of the patella persists. Signer Name: Tato Evangelista MD Signed: 07/05/2021 5:21 PM Workstation Name: [id number]
--- NOTE | 2021-07-05 17:56 | Post Anesthesia Evaluation ---
- Post Anesthesia Evaluation Patient Participated: Yes Airway Patent: Yes Stable Respiratory Function: Yes Nausea/Vomiting: No Temp > 96.8F: Yes Pain Manageable: Yes Adequeate Hydration: Yes Anesthesia Complications: No
[2021-07-05] MEDS: MORPHINE 4 MG/1 ML INJ IV PRN (21:37)
[2021-07-06] MEDS: MORPHINE 4 MG/1 ML INJ IV PRN ×4 (03:57→21:55)
--- OUTSIDE RECORDS SUMMARY | 2021-07-06 07:42 | External Medical Summary ---
:[address] [facility], [facility] Address [address] [place] [address] Care Team Providers Name Role Phone Boyd Unavailable [phone] PROBLEMS Type Condition ICD9-CM [id number] Onset Condition W/U Status Risk SNOM ED Notes Code Code Dates Status Code Problem Unilateral M17.11 Active confirmed 607406097 primary osteoarthrit is, right knee ALLERGIES No Known Allergies ENCOUNTERS from 1960 to 2021-07-04 Encounter Location Date Provider Diagnosis [facility] [address] Jun, Ivan Nix [facility] primary [facility] level [facility] oste oarthritis, right [place], [place]17.11 [place] [id number] right knee M25. 561 IMMUNIZATIONS No Information SOCIAL HISTORY Tobacco Use: Social History Observation Description Date Details (start date - stop date) Never Smoker Sex Assigned At : Social History Observation Description Sex Assigned At Unknown Smoking Question Answer Notes Are you a: never smoker REASON FOR REFERRAL from 1960 to 2021-07-04 Reason Right TKR Diagnosis 1 Unilateral primary osteoarth ritis, right knee (M17.11) Diagnosis 2 Pain in right knee (M25.561) Referral Organization [facility] Referring Provider First Name Ivan Referring Provider Last Name Boyd Referring Provider Specialty Orthopedic Surgery Referred Provider [facility], - Referral Priority Routine VITAL SIGNS No information MEDICATIONS Medication SIG (Take, Route, Notes Start Date End Date Status Frequency, Duration) amLODIPine Besylate 10 1 tablet Orally Once a Active MG day for 30 day(s) metFORMIN HCl 500 MG 1 tablet with a meal Active Orally Once a day for 30 day(s) cloNIDine HCl 0.2 MG 1 tablet Orally Once a Active day for 30 day(s) traMADol HCl 50 MG 1 tablet as needed Active Orally Once a day Valsartan 320 MG 1 tablet Orally Once a Active day for 30 day(s) Multivitamin Active Diclofenac Sodium 75 MG 1 tablet Orally Twice Apr, Jun, Active a day for 30 day(s) Carvedilol 12.5 MG 1 tablet with food Active Orally Twice a day for 30 day(s) HYDROcodone-Acetaminophe 1 tablet as needed Apr, Active n 5-325 MG Orally every 6 hrs Flomax 0.4 MG 1 capsule Orally Once Active a day for 30 day(s) PROCEDURES No Information RESULTS No Results REASON FOR VISIT right knee pain MEDICAL (GENERAL) HISTORY Type Description Date Medical History HTN Medical History Diabetes Medical History CKD-stage IV Medical History Joint Pain Medical History Vitamin D deficiency Medical History Dyslipidemia Surgical History No Surgical history information Goals Section No Information Health Concerns No Information MEDICAL EQUIPMENT No Information MENTAL STATUS No Information FUNCTIONAL STATUS No Information ASSESSMENTS Encounter Date Diagnosis Assessment Notes Treatment Notes Treatm ent Clinical Notes Jun, Unilateral Discussed treatment primary options with the osteoarthritis, patient based on the right knee history physical exam (ICD-10 - M17.11) and review of the x-ray showing significant osteoarthritic changes in the right knee I have therefore recommended a right total knee replacement for this patient Jun, Pain in right knee (ICD-10 - M25.561) PLAN OF TREATMENT Treatment Notes Assessment Notes Clinical Notes Unilateral primary Discussed treatment options with the osteoarthritis, right knee patient based on the history phys ical exam and review of the x-ray showing significant osteoarthritic changes in the right knee I have therefore recommended a right total knee replacement for this patient Referrals Referral Date Details Right TKR Next Appt Details Provider Name:Ivan Nix, 2021-07-05 11:45:00 AM, [address] [place], [address], Provider Name:Charlie Burks, 2021-07-05 11:45:00 AM, [address] [facility], [place], [place], [address], Insurance Providers Payer Name Payer Payer Insured Name Patient Coverage Covera ge End Address Phone Relationship to Start Date Jomar e Insured Medicaid [phone] Ramya Fonseca [id number] [place] [id number]
[2021-07-06] MEDS: ENOXAPARIN 40 MG/0.4 ML INJ SUB-Q SCH (10:11)
--- NOTE | 2021-07-06 13:32 | Progress Note ---
Assessment and Plan s/p right TKR doing ok continue PT and observation, will require placement to SNF upon dc... Subjective Date of service: 07/06/21 Interval history: c/o incisional pain otherwise ok, PT started, states he lives alone and would like placement to SNF upon dc Objective Vital signs: Vital Signs - 12hr 07/06/21 07/06/21 04:37 10:08 Temperature 98.4 F Pulse Rate 73 Respiratory 18 Rate Blood Pressure 162/81 O2 Sat by Pulse 100 90 Oximetry Incision: healing, clean and dry Weight bearing status: as tolerated - Labs CBC & BMP: 06/27/21 00:01 06/27/21 00:01
[2021-07-07] MEDS: MORPHINE 4 MG/1 ML INJ IV PRN ×5 (01:51→23:32)
[2021-07-07] MEDS: ENOXAPARIN 40 MG/0.4 ML INJ SUB-Q SCH (09:17)
[2021-07-07] MEDS: ACETAMINOPHEN 325 MG TAB PO PRN (11:08)
[2021-07-07] MEDS: KETOROLAC 30 MG/1 ML INJ IV PRN ×2 (11:08→20:33)
[2021-07-08] MEDS: MORPHINE 4 MG/1 ML INJ IV PRN ×4 (06:15→22:32)
[2021-07-08] MEDS: ENOXAPARIN 40 MG/0.4 ML INJ SUB-Q SCH (09:27)
[2021-07-08] MEDS: ACETAMINOPHEN 325 MG TAB PO PRN ×2 (09:27→17:56)
[2021-07-08] MEDS: KETOROLAC 30 MG/1 ML INJ IV PRN (14:46)
[2021-07-09 06:10] LABS: Hematocrit 23.4 % (35.5-45.6); Hemoglobin 7.5 gm/dl (11.8-15.2)
[2021-07-09 06:35] LABS: Calcium 8.6 mg/dL (8.4-10.2)
[2021-07-09] MEDS: ENOXAPARIN 40 MG/0.4 ML INJ SUB-Q SCH (11:00)
[2021-07-09] MEDS: KETOROLAC 30 MG/1 ML INJ IV PRN (12:06)
--- NOTE | 2021-07-09 14:44 | Progress Note ---
Assessment and Plan will try oral pain medication prior to dc to home Subjective Date of service: 07/09/21 Interval history: still c/o severe pain right knee, still participating with PT Objective Vital signs: Vital Signs - 12hr 07/09/21 07/09/21 07/09/21 03:13 04:54 08:56 Temperature 98.7 F 98.3 F Pulse Rate 83 95 H Respiratory 16 18 Rate Blood Pressure 148/83 137/76 O2 Sat by Pulse 98 100 98 Oximetry Incision: healing, clean and dry Weight bearing status: as tolerated - Labs CBC & BMP: 07/09/21 04:45 07/09/21 04:45 Labs: Abnormal lab results 07/09/21 07/09/21 Range/Units 04:45 04:45 Hgb 7.5 L (11.8-15.2) gm/dl Hct 23.4 L (35.5-45.6) % Carbon Dioxide 21 L (22-30) mmol/L BUN 30 H (9-20) mg/dL Creatinine 2.3 H (0.8-1.3) mg/dL Glucose 104 H (75-100) mg/dL
[2021-07-09] MEDS: oxyCODONE /ACETAMINOPHEN 5-325MG TAB PO PRN (18:41)
[2021-07-10] MEDS: oxyCODONE /ACETAMINOPHEN 5-325MG TAB PO PRN ×3 (00:37→18:32)
[2021-07-10] MEDS: ENOXAPARIN 40 MG/0.4 ML INJ SUB-Q SCH (10:46)
--- NOTE | 2021-07-10 12:52 | Discharge Summary ---
Providers - Providers Date of Admission: 07/06/21 09:50 Date of discharge: 07/10/21 Attending physician: APARNA TINAJERO MD 07/05/21 16:04 Physical Therapy Evaluation and Treat [CONS] Routine Comment: Reason For Exam: post op evaluation, WBAT Weight bearing status?: Full wt bearing Assistive devices?: Yes If so list: Walker Primary care physician: [facility] Hospitalization Condition: Stable Procedures: Right total knee replacement Hospital course: 61 y/o male with longstanding c/o right knee pain and stiffness, hx of previous arthroscopy with meniscectomy years ago...Tried conservative management over the years but recently failed to adequately control pain. Plain xrays taken pre-op show significant osteoarthritic changes throughout all three compartments. Following admission, he was taken to OR where right total knee replacement done without complications. Post op PT started the following day but progress slowed due to deconditioning, consulted Case Management services for placement, patient stated he lives with sister and niece who are gone most of the day, so concerned about help/assistance when discharged. Arrangements made for inpatient rehab and patient later transferred to another facility for further care... Disposition: [facility]AC[facility] Final Discharge Diagnosis (Prints w/discharge instructions): Severe arthritis right knee Core Measure Documentation - Palliative Care Palliative Care/ Comfort Measures: Not Applicable - Core Measures Any of the following diagnoses?: none - VTE Discharge Requirements Deep Vein Thrombosis/Pulmonary Embolism Present on Admission: No Has pt received <5 days of overlap therapy or INR<2.0: Yes Anticoagulant overlap therapy prescribed at discharge: Yes Contraindication No Overlap Therapy order at DC: Medical Contraindication - Acute [place] Discharge Requirements Aspirin at discharge: No Reason for no aspirin on DC: Medical contraindication - Heart Failure Discharge Requirements VINCENZO/ARB for LVSD if EF <40%: Not Applicable - Stroke Discharge Requirements Statin for LDL = or >70 mg/dl on DC: Not Applicable Exam - Constitutional Vitals: Temp Pulse Resp BP Pulse Ox 98.7 F 85 14 153/80 99 07/10/21 08:05 07/10/21 08:05 07/10/21 08:05 07/10/21 08:05 07/10/21 08:05 General appearance: Present: no acute distress, well-nourished - EENT Eyes: Present: PERRL ENT: hearing intact, clear oral mucosa - Neck Neck: Present: supple, normal ROM - Respiratory Respiratory effort: normal Respiratory: bilateral: CTA - Cardiovascular Heart Sounds: Present: S1 & S2. Absent: rub, click - Extremities Extremities: pulses symmetrical, No edema Peripheral Pulses: within normal limits - Abdominal General gastrointestinal: Present: soft, non-tender, non-distended, normal bowel sounds Male genitourinary: Present: normal - Integumentary Integumentary: Present: clear, warm, dry - Musculoskeletal Musculoskeletal: gait normal, strength equal bilaterally - Psychiatric Psychiatric: appropriate mood/affect, intact judgment & insight - Neurologic Neurologic: CNII-XII intact, moves all extremities Plan Activity: advance as tolerated Weight Bearing Status: Weight Bear as Tolerated Diet: regular Wound: keep clean and dry Special Instructions: physical therapy Durable Medical Equipment Needed Upon Discharge: Walker-Standard, Bedside Commode Follow up with: WILLIAM DAUGHERTY [Primary Care Provider] - 7 Days Prescriptions: Apixaban [Eliquis] 5 mg PO DAILY #30 tablet Oxycodone HCl/Acetaminophen [Percocet 10/325 mg] 1 each PO Q6HR PRN #30 tablet PRN Reason: Pain Oxycodone HCl/Acetaminophen [Percocet 10/325 mg] 1 each PO Q6HR PRN #30 tablet PRN Reason: Pain
[2021-07-10] MEDS: MORPHINE 4 MG/1 ML INJ IV PRN (22:43)
[2021-07-11] MEDS: oxyCODONE /ACETAMINOPHEN 5-325MG TAB PO PRN ×2 (08:48→13:51)
[2021-07-11] MEDS: ENOXAPARIN 40 MG/0.4 ML INJ SUB-Q SCH (09:04)
[2021-07-11 16:21] VITALS: BP 171/84
== END 2021-07-11 18:36 | DRG 470 ==
LOC: 3A 08:08 → INTOOBSV 08:08 → 3A 09:50 → 4A 18:10 → OBSVTOIN 07-06 09:50
PROVIDERS: ADMIT Orthopaedic Surgery; ATTEND Orthopaedic Surgery
PROC: 0SRC0J9 Replacement of Right Knee Joint with Synthetic Substitute, Cemented, Open Approach (ICD-10-PCS; principal; 2021-07-05)
DX: M13.861 Other specified arthritis, right knee (principal); Z20.822 Contact with and (suspected) exposure to COVID-19; N18.4 Chronic kidney disease, stage 4 (severe); E78.5 Hyperlipidemia, unspecified; I12.9 Hypertensive chronic kidney disease with stage 1 through stage 4 chronic kidney disease, or unspecified chronic kidney disease; E11.22 Type 2 diabetes mellitus with diabetic chronic kidney disease
CPT/HCPCS: 36415; 64450; 80048; 80053; 82962; 85014; 85018; 85027; 85049; 85610; 85730; 86850; 86900; 86901; 88304; 88305; 88311; 94760; G0378; C1776; G0379; J0360; J0735; J1100; J1170; J1650; J1885; J2250; J2270; J2405; J2704; J3010; J7120; U0003

== ENCOUNTER 2021-11-04 14:21 | Inpatient (IN) | payer MEDICAID ==
[2021-11-04] MEDS ORDERED: HYDROmorphone 1 MG/1 ML INJ IV ONE ×2 (14:59→17:09)
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
--- NOTE | 2021-11-04 16:32 | XRay Report ---
XR knee 1-2V RT INDICATION: FALL RIGHT KNEE PAIN COMPARISON: None. FINDINGS/IMPRESSION: Spiral moderately displaced distal right femoral diaphyseal fracture. Right knee arthroplasty with intact hardware. The fracture does not extend to the hardware. Signer Name: Luigi Beaver MD Signed: 11/04/2021 4:28 PM Workstation Name: [id number]
--- NOTE | 2021-11-04 16:33 | XRay Report ---
XR tibia fibula 2V RT INDICATION / CLINICAL INFORMATION: FALL RIGHT LEG PAIN. COMPARISON: None available. FINDINGS: Right knee arthroplasty is intact. No acute fracture. Normal alignment. Joint spaces are preserved. No destructive osseous lesion or suspicious periosteal reaction. Impression: 1.No acute fracture. Signer Name: Luigi Beaver MD Signed: 11/04/2021 4:29 PM Workstation Name: [id number]
--- NOTE | 2021-11-04 16:39 | XRay Report ---
XR femur 2+V RT INDICATION: FALL RIGHT FEMUR PAIN COMPARISON: None. FINDINGS/IMPRESSION: * Spiral moderately displaced distal right femoral diaphyseal fracture. * Right knee arthroplasty and right dynamic hip screw with intact hardware. The fracture does not ex tend to the hardware. Signer Name: Luigi Beaver MD Signed: 11/04/2021 4:35 PM Workstation Name: [id number]
[2021-11-04] MEDS ORDERED: LACTATED RINGERS 1,000 ML IV ONE (17:09)
--- NOTE | 2021-11-04 17:48 | Cat Scan Report ---
NONENHANCED CT SCAN OF THE HEAD: INDICATION / CLINICAL INFORMATION: 61 years Male; fall closed head injury. TECHNIQUE: Routine CT head without contrast. All CT scans at this location are performed using CT dos e reduction for ALARA by means of automated exposure control. COMPARISON: None. FINDINGS: BRAIN / INTRACRANIAL CONTENTS: No intracranial sequela from the trauma; no scalp hematoma; no fluid l evel in the paranasal sinuses No acute hemorrhage, mass effect, midline shift, hydrocephalus, or acute, large territorial infarct. Chronic ischemic changes in the left corpus striatum; periventricular low-attenuation areas due to c hronic small vessel disease; CRANIOCERVICAL JUNCTION: No significant abnormality. ORBITS: No significant abnormality of visualized orbits. SINUSES / MASTOIDS: No significant abnormality of the visualized paranasal sinuses or mastoid air dillon ls. ADDITIONAL FINDINGS: None. IMPRESSION: No intracranial sequela from the trauma No acute focal parenchymal lesion in the brain Signer Name: Marino Rossi MD Signed: 11/04/2021 5:44 PM Workstation Name: [id number]
[2021-11-04 18:28] LABS: Mean Corpuscular HGB Conc 30 % (32-34); Platelet Count 389 K/mm3 (140-440); Red Blood Count 5.46 M/mm3 (3.65-5.03); Red Cell Distribution Width 19.5 % (13.2-15.2)
[2021-11-04 18:34] LABS: Calcium 9.2 mg/dL (8.4-10.2)
[2021-11-04 18:42] LABS: Hematocrit 36.8 % (35.5-45.6); Hemoglobin 10.9 gm/dl (11.8-15.2); Mean Corpuscular Volume 67 fl (84-94)
--- NOTE | 2021-11-04 19:51 | History and Physical Report ---
History of Present Illness Chief complaint: I tripped and fell down the stairs History of present illness: 61 YO Male with CVA with LHP, OA, HTN, [place], GERD, Migraine MCGHEE, HLD, Asthma, BPH, prescribed therapeutic anticoagulation with which he is not compliant and does not know why medication was prescribed presents to ED for evaluation. Patient states "I tripped and fell down the stairs". Patient states that he has e xperienced chest discomfort and shortness of breath over the past 2 days with worsening symptoms over the past 1 day. Patient states that he was in his usual state of health and tripped while walking down the stairs and subsequently landed on his head as well as his right knee which broke his fall. Patient states he experienced right leg pain immediately after the fall and was unable to bear weight on his right leg. EMS notified and upon arrival the patient was found to be in distress and subsequent transported to [facility] for further care and evaluation of the aforementioned symptoms. The patient was seen and evaluated in the emergency department. All lab and imaging studies reviewed. Patient underwent x-ray of the right femur and was found to have a right femur fracture, acute kidney injury. Patient admitted to medical floor due to increased risk of worsening symptoms. Orthopedic surgery team consulted in ED. Patient pending surgical intervention in a.m. Patient denies fever, chills, palpitation, productive cough, skin rash, recent ill contacts, unilateral leg swelling, calf pain, individual/family history of DVT/PE/bleeding/blood clotting disorders, prolonged travel. Prior admission on 02/08/2021 reviewed. All medication listed at time of admission has been reconciled. Advanced care planning conducted in ED. Past History Past Medical History: acute [place], arthritis, GERD, hyperlipidemia, migraines, stroke Past Surgical History: appendectomy, cholecystectomy, total hip replacement Social history: single. denies: smoking, alcohol abuse, prescription drug abuse Family history: hypertension Medications and Allergies Allergies Allergy/AdvReac Type Severity Reaction Status Date / Time No Known Allergies Allergy Verified 05/21/21 15:40 Home Medications Medication Instructions Recorded Confirmed Last Taken Type Ferrous Sulfate [Feosol 325 MG tab] 325 mg PO BID #60 tablet 02/10/21 06/21/21 06/28/21 Rx HYDROcodone/APAP 7.5-325 [[place] 1 each PO Q6HR PRN #15 tablet 0506/21/21 06/28/21 Rx 7.5-325 mg TAB] AtorvaSTATin [Lipitor] 40 mg PO QHS 05/28/21 06/21/21 06/28/21 History Gabapentin [Neurontin] 300 mg PO Q8HR 05/28/21 06/21/21 06/28/21 History Tamsulosin [Flomax] 0.4 mg PO QDAY 05/28/21 06/21/21 06/28/21 History Valsartan [Diovan] 320 mg PO QDAY 05/28/21 06/21/21 06/28/21 History carvediloL [Coreg] 12.5 mg PO BID 05/28/21 06/21/21 06/28/21 History cloNIDine [Catapres] 0.2 mg PO BID 05/28/21 06/21/21 06/28/21 History traMADoL [Ultram] 50 mg PO Q4HR PRN 05/28/21 06/21/21 06/28/21 History Aspirin [Adult Aspirin] 81 mg PO DAILY 05/29/21 06/21/21 06/28/21 History amLODIPine [Norvasc] 10 mg PO DAILY 07/05/21 07/05/21 06/28/21 History Oxycodone HCl/Acetaminophen 1 each PO Q6HR PRN #30 tablet 07/09/21 Unknown Rx [Percocet 10/325 mg] Apixaban [Eliquis] 5 mg PO DAILY #30 tablet 07/10/21 Unknown Rx Oxycodone HCl/Acetaminophen 1 each PO Q6HR PRN #30 tablet 07/10/21 Unknown Rx [Percocet 10/325 mg] Review of Systems Constitutional: no weight loss, no weight gain, no fever, no sweats Ears, nose, mouth and throat: no ear pain, no decreased hearing, no nose pain, no nasal congestion Cardiovascular: no chest pain, no rapid/irregular heart beat, no edema, no lightheadedness Respiratory: no cough, no shortness of breath Gastrointestinal: no abdominal pain, no vomiting, no diarrhea Genitourinary Male: no hematuria, no discharge, no urinary hesitancy, no incontinence Rectal: no pain, no bleeding Musculoskeletal: other (Right leg pain), no neck stiffness, no neck pain, no shooting arm pain, no arm numbness/tingling, no low back pain Integumentary: no rash, no redness, no wounds, no jaundice, no boils Neurological: no head injury, no transient paralysis, no numbness, no tingling, no syncope Psychiatric: no anxiety, no change in sleep habits, no insomnia, no hypersomnia, no change in appetite, no suicidal ideation Endocrine: no cold intolerance, no polyphagia, no polyuria, no nocturia Hematologic/Lymphatic: no easy bruising, no easy bleeding, no lymphedema Allergic/Immunologic: no allergic rhinitis, no wheezing, no anaphylaxis Exam - Constitutional Vitals: Temp Pulse Resp BP Pulse Ox 98.0 F 99 H 141 H 180/92 99 11/04/21 14:27 11/04/21 14:27 11/04/21 17:20 11/04/21 14:27 11/04/21 19:28 General appearance: Present: mild distress - EENT Eyes: Present: PERRL ENT: hearing intact, clear oral mucosa - Neck Neck: Present: supple, normal ROM - Respiratory Respiratory effort: normal Respiratory: bilateral: CTA - Cardiovascular Heart Sounds: Present: S1 & S2. Absent: rub, click - Extremities Extremities: pulses symmetrical, No edema Peripheral Pulses: within normal limits - Abdominal General gastrointestinal: Present: soft, non-tender, non-distended, normal bowel sounds Male genitourinary: Present: normal - Integumentary Integumentary: Present: clear, warm, dry - Musculoskeletal Musculoskeletal: gait normal, strength equal bilaterally - Psychiatric Psychiatric: appropriate mood/affect, intact judgment & insight - Neurologic Neurologic: CNII-XII intact, moves all extremities Results - Labs CBC & Chem 7: 11/04/21 17:53 11/04/21 17:53 Labs: Abnormal lab results 11/04/21 11/04/21 Range/Units 17:53 17:53 WBC 11.6 H (4.5-11.0) K/mm3 RBC 5.46 H (3.65-5.03) M/mm3 Hgb 10.9 L (11.8-15.2) gm/dl MCV 67 L (84-94) fl MCH 20 L (28-32) pg MCHC 30 L (32-34) % RDW 19.5 H (13.2-15.2) % Carbon Dioxide 19 L (22-30) mmol/L Creatinine 2.1 H (0.8-1.3) mg/dL Glucose 183 H (75-100) mg/dL Assessment and Plan - Patient Problems (1) Right femoral fracture Current Visit: Yes Status: Acute Plan to address problem: Orthopedic surgery service consulted. Pain control, bowel rest, n.p.o. after midnight, IV fluid resuscitation therapy, pain control, patient pending surgical intervention in a.m. (2) GERD (gastroesophageal reflux disease) Current Visit: Yes Status: Acute Qualifiers: Esophagitis presence: without esophagitis Qualified Code(s): K21.9 - Gastro-esophageal reflux disease without esophagitis Plan to address problem: PPI therapy, supportive care. (3) Osteoarthritis Current Visit: Yes Status: Acute Plan to address problem: NSAID therapy, supportive care, pain control. (4) Migraine Current Visit: Yes Status: Acute Qualifiers: Intractability: not intractable Plan to address problem: Supportive care. No symptoms at this time. Pain control as clinically indicated. (5) Asthma Current Visit: Yes Status: Acute Qualifiers: Asthma severity: mild Asthma persistence: intermittent Plan to address problem: Supportive care, nebulizer therapy as needed. (6) DICKSON (acute kidney injury) Current Visit: No Status: Acute Plan to address problem: BMP, IV fluid resuscitation therapy, repeat BMP in a.m. (7) DVT prophylaxis Current Visit: Yes Status: Acute Plan to address problem: SCD to bilateral lower extremities while in bed (8) Advance care planning Current Visit: Yes Status: Acute Plan to address problem: Disease education conducted, care plan discussed, diagnoses discussed, prognosis discussed, patient is full code. Patient acknowledges understanding and agreement with care plan, +30 minutes.
[2021-11-04] MEDS ORDERED: SODIUM CHLORIDE 0.9% 1000 ML 1,000 ML IV ONE (20:02)
[2021-11-04] MEDS ORDERED: ONDANSETRON 4 MG/2 ML INJ IV PRN (20:03)
[2021-11-04] MEDS ORDERED: ALBUTEROL 2.5 MG/3 ML NEBU IH PRN (20:03)
[2021-11-04] MEDS: FERROUS SULFATE 325 MG TAB PO SCH (22:55)
[2021-11-04] MEDS: APIXABAN 2.5 MG TAB PO SCH (22:55)
[2021-11-04] MEDS: cloNIDine 0.2 MG TAB PO SCH (22:55)
[2021-11-04] MEDS: GABAPENTIN 300 MG CAP PO SCH (22:55)
[2021-11-04] MEDS: carvediloL 12.5 MG TAB PO SCH (22:56)
[2021-11-04] MEDS: SODIUM CHLORIDE 0.9% 1000 ML 1,000 ML IV SCH (22:58)
[2021-11-04] MEDS: HYDROmorphone 1 MG/1 ML INJ IV PRN (23:54)
[2021-11-05] MEDS: GABAPENTIN 300 MG CAP PO SCH ×4 (04:42→22:43)
[2021-11-05] MEDS: HYDROmorphone 1 MG/1 ML INJ IV PRN ×5 (04:42→22:54)
[2021-11-05 05:11] LABS: Calcium 8.5 mg/dL (8.4-10.2)
--- NOTE | 2021-11-05 08:51 | Electrocardiograph Report ---
[facility] Test Date: 2021-11-05 Test Time: 08:13:57 Pat Name: WHITLEY ARCHULETA Department: Room: [facility] Gender: M Concert Pianist: JANINE : 1960 Requested By: YAMINI SANDS Order Number: [id number] Reading MD: Odell Farmer Measurements Intervals [place] Rate: 81 P: 81 MT: 158 QRS: -31 QRSD: 82 T: 76 QT: 384 QTc: 446 Interpretive Statements Sinus rhythm Multiple ventricular premature complexes Left axis deviation Anterior infarct, old Compared to ECG 02/10/2021 01:59:35 Ventricular premature complex(es) now present Left-axis deviation now present Sinus tachycardia no longer present Myocardial infarct finding still present Electronically Signed On 11-05-2021 8:51:35 EST by Odell Farmer
--- NOTE | 2021-11-05 09:59 | Progress Note ---
Assessment and Plan Assessment and plan: Right femur fracture GERD Osteoarthritis Migraine headache Asthma without acute exacerbation Chronic kidney disease 11/05/2021. Patient is at baseline with regards to creatinine. No evidence of acute kidney injury. Patient with a creatinine of 2.01 July 2021. Patient with femur x-ray which revealed spiral moderately displaced distal right femoral diaphyseal fracture. Await orthopedics consultation for right femur fracture. Continue supportive care and pain control. History Interval history: No new issues overnight. Hospitalist Physical - Constitutional Vitals: Temp Pulse Resp BP Pulse Ox 98.3 F 84 20 123/80 98 11/05/21 05:49 11/05/21 05:49 11/05/21 05:49 11/05/21 05:49 11/05/21 08:28 General appearance: Present: mild distress - EENT Eyes: Present: PERRL, EOM intact ENT: hearing intact, clear oral mucosa, dentition normal - Neck Neck: Present: supple, normal ROM - Respiratory Respiratory effort: normal Respiratory: bilateral: CTA - Cardiovascular Rhythm: regular Heart Sounds: Present: S1 & S2. Absent: gallop, rub - Extremities Extremities: no ischemia, No edema, Full ROM - Abdominal General gastrointestinal: soft, non-tender, non-distended, normal bowel sounds - Integumentary Integumentary: Present: clear, warm, dry - Neurologic Neurologic: CNII-XII intact, moves all extremities Results - Labs CBC & Chem 7: 11/04/21 17:53 11/05/21 04:23 Labs: Laboratory Last Values WBC 11.6 K/mm3 (4.5-11.0) H 11/04/21 17:53 RBC 5.46 M/mm3 (3.65-5.03) H 11/04/21 17:53 Hgb 10.9 gm/dl (11.8-15.2) L 11/04/21 17:53 Hct 36.8 % (35.5-45.6) 11/04/21 17:53 MCV 67 fl (84-94) L 11/04/21 17:53 MCH 20 pg (28-32) L 11/04/21 17:53 MCHC 30 % (32-34) L 11/04/21 17:53 RDW 19.5 % (13.2-15.2) H 11/04/21 17:53 Plt Count 389 K/mm3 (140-440) 11/04/21 17:53 PT 14.3 Sec. (12.2-14.9) 11/04/21 17:53 INR 1.00 (0.87-1.13) 11/04/21 17:53 Sodium 140 mmol/L (137-145) 11/05/21 04:23 Potassium 4.3 mmol/L (3.6-5.0) 11/05/21 04:23 Chloride 105.6 mmol/L (98-107) 11/05/21 04:23 Carbon Dioxide 21 mmol/L (22-30) L 11/05/21 04:23 Anion Gap 18 mmol/L 11/05/21 04:23 BUN 18 mg/dL (9-20) 11/05/21 04:23 Creatinine 2.0 mg/dL (0.8-1.3) H 11/05/21 04:23 Estimated GFR 41 ml/min 11/05/21 04:23 BUN/Creatinine Ratio 9 % 11/05/21 04:23 Glucose 129 mg/dL (75-100) H 11/05/21 04:23 Calcium 8.5 mg/dL (8.4-10.2) 11/05/21 04:23 Magnesium 1.90 mg/dL (1.7-2.3) 11/04/21 17:53 Total Creatine Kinase 161 units/L (55-170) 11/04/21 17:53 Weaver/IV: Voiding Method Urinal Active Medications - Current Medications Current Medications: Generic Name Dose Route Start Last Admin Trade Name Freq PRN Reason Stop Dose Admin Acetaminophen 650 mg 11/04/21 20:03 Acetaminophen 325 Mg Tab PO Q4H PRN Pain MILD(1-3)/Fever >100.5/MCGHEE Albuterol 2.5 mg 11/04/21 20:03 Albuterol 2.5 Mg/3 Ml Nebu IH Q4HRT PRN Shortness Of Breath Amlodipine Besylate 10 mg 11/05/21 10:00 Amlodipine 10 Mg Tab PO DAILY [facility] Apixaban 2.5 mg 11/04/21 22:00 11/04/21 22:55 Apixaban 2.5 Mg Tab PO 2.5 mg BID [facility] Administration Aspirin 81 mg 11/05/21 10:00 Aspirin Ec 81 Mg Tab PO DAILY JOSIE Atorvastatin Calcium 40 mg 11/04/21 22:00 11/04/21 22:55 Atorvastatin 40 Mg Tab PO 40 mg QHS JOSIE Administration Carvedilol 12.5 mg 11/04/21 22:00 11/04/21 22:56 Carvedilol 12.5 Mg Tab PO 12.5 mg BID JOSIE Administration Clonidine HCl 0.2 mg 11/04/21 22:00 11/04/21 22:55 Clonidine 0.2 Mg Tab PO 0.2 mg BID JOSIE Administration Ferrous Sulfate 325 mg 11/04/21 22:00 11/04/21 22:55 Ferrous Sulfate 325 Mg Tab PO 325 mg BID JOSIE Administration Gabapentin 300 mg 11/04/21 22:00 11/05/21 06:33 Gabapentin 300 Mg Cap PO Not Given Q8HR [facility] Hydromorphone HCl 0.5 mg 11/04/21 20:03 11/05/21 04:42 Hydromorphone 1 Mg/1 Ml Inj IV 0.5 mg Q3H PRN Administration Pain , Severe (7-10) Sodium Chloride 1,000 mls @ 75 mls/hr 11/04/21 20:15 11/04/21 22:58 Nacl 0.9% 1000 Ml IV 75 mls/hr DIRECT JOSIE Administration Ondansetron HCl 4 mg 11/04/21 20:03 Ondansetron 4 Mg/2 Ml Inj IV Q8H PRN Nausea And Vomiting Oxycodone/Acetaminophen 1 tab 11/04/21 20:03 Oxycodone /Acetaminophen 5-325mg Tab PO Q6H PRN Pain, Moderate (4-6) Sodium Chloride 10 ml 11/04/21 22:00 11/04/21 22:56 Sodium Chloride 0.9% 10 Ml Flush Syringe IV 10 ml BID JOSIE Administration Sodium Chloride 10 ml 11/04/21 20:03 Sodium Chloride 0.9% 10 Ml Flush Syringe IV PRN PRN LINE FLUSH Tamsulosin HCl 0.4 mg 11/05/21 10:00 Tamsulosin 0.4 Mg Cap PO QDAY [facility] Tramadol HCl 50 mg 11/04/21 20:02 Tramadol 50 Mg Tab PO Q4HR PRN PAIN Valsartan 320 mg 11/05/21 10:00 Valsartan 160mg Tab PO QDAY [facility]
[2021-11-05] MEDS ORDERED: NON-FORMULARY EACH (Valsartan [Diovan] 320 MG Tablet) PO SCH (10:00)
[2021-11-05] MEDS ORDERED: NON-FORMULARY EACH (Apixaban 5 MG Tablet) PO SCH (10:00)
[2021-11-05] MEDS: amLODIPine 10 MG TAB PO SCH (10:05)
[2021-11-05] MEDS: cloNIDine 0.2 MG TAB PO SCH ×2 (10:06→22:42)
[2021-11-05] MEDS: carvediloL 12.5 MG TAB PO SCH ×2 (10:06→22:44)
[2021-11-05] MEDS: VALSARTAN 160MG TAB PO SCH (10:07)
[2021-11-05] MEDS: APIXABAN 2.5 MG TAB PO SCH (10:07)
[2021-11-05] MEDS: FERROUS SULFATE 325 MG TAB PO SCH ×2 (10:08→22:43)
[2021-11-05] MEDS: TAMSULOSIN 0.4 MG CAP PO SCH (10:08)
[2021-11-05] MEDS: ASPIRIN EC 81 MG TAB PO SCH (10:08)
--- NOTE | 2021-11-05 10:58 | Anesthesia Consultation ---
Anesthesia Consult and Med Hx Date of service: 11/05/21 - Airway Anesthetic Teeth Evaluation: Poor (multiple missing, broken teeth, 2 lower molars - one on the each side are somewhat loose) ROM Head & Neck: Adequate Mental/Hyoid Distance: Adequate Mallampati Class: Class II Intubation Access Assessment: Probably Good - Pre-Operative Health Status ASA Pre-Surgery Classification: ASA3 Proposed Anesthetic Plan: General - Pulmonary Hx Smoking: Yes ( quit >1yr, recently restarted) Hx Asthma: Yes (no inhaler use >1yr) SOB: Yes Hx Pneumonia: No Hx Sleep Apnea: Yes (no CPAP) - Cardiovascular System Hx Hypertension: Yes Hx Coronary Artery Disease: Yes Hx Heart Attack/AMI: No (EF 60-65% on TTE 01/2021) Hx Percutaneous Transluminal Coronary Angioplasty (PTCA): No Hx Cardia Arrhythmia: No (EKG 01/2021 SR) Hx Valvular Heart Disease: No - Central Nervous System Hx Seizures: Yes (remote hx) CVA: Yes (? TIA x2 >1 yr ago, no defecits) Hx Back Pain: Yes (right femur fracture) Hx Psychiatric Problems: No - Gastrointestinal Hx Gastroesophageal Reflux Disease: No - Endocrine Hx Renal Disease: Yes (CKD 3) Hx End Stage Renal Disease: No Hx Liver Disease: No Hx Non-Insulin Dependent Diabetes: Yes Hx Thyroid Disease: No Hx Hypothyroidism: No Hx Hyperthyroidism: No - Hematic Hx Anemia: Yes Hx Sickle Cell Disease: No - Other Systems Hx Alcohol Use: Yes (Occas) Hx Substance Use: Yes (occasional THC; remote hx IVDU) Hx Cancer: No Hx Obesity: No
--- NOTE | 2021-11-05 10:59 | Anesthesia Day of Surgery ---
Anesthesia Day of Surgery - Day of Surgery Patient Examined: Yes Patient H&P Reviewed: Yes Patient is NPO: Yes Beta Blockers: Yes
[2021-11-05] MEDS ORDERED: ROCURONIUM 50 MG/5 ML INJ IV ONE (13:54)
[2021-11-05] MEDS ORDERED: ONDANSETRON 4 MG/2 ML INJ ONE (13:54)
[2021-11-05] MEDS ORDERED: LIDOCAINE MPF (2%) 20 MG/1 ML VIAL 5 ML ONE (13:54)
[2021-11-05] MEDS ORDERED: propofoL 200 MG/20 ML VIAL IV ONE (13:55)
[2021-11-05] MEDS ORDERED: HYDROmorphone 1 MG/1 ML INJ ONE (13:55)
[2021-11-05] MEDS ORDERED: BUPIVACAINE/PF (0.5%) 5 MG/1 ML 30 ML VIAL INFILTRATI ONE (14:21)
[2021-11-05] MEDS ORDERED: ceFAZolin 1 GM VIAL ONE ×2 (15:11→15:12)
[2021-11-05] MEDS ORDERED: PHENYLEPHRINE/NS 1,000 MCG/10 ML SYRINGE (OR USE) IV ONE (15:51)
[2021-11-05] MEDS ORDERED: LACTATED RINGERS 1,000 ML ONE (15:52)
[2021-11-05] MEDS ORDERED: SODIUM CHLORIDE 0.9% IRR 1,500 ML BOTTLE IR ONE (16:09)
--- NOTE | 2021-11-05 17:00 | Consultation ---
History of Present Illness - [facility] Consult date: 11/05/21 Consult reason: fracture History of present illness: 61 y/o male with c/o right thigh pain after fall down stairs prior to transport to our hospital, states he lost his balance and fell, unable place any weight on to right leg afterwards. PMHx significant for right total knee replacement Jun, plain xrays taken reveal displaced distal femur with intact TKR prosthesis... Past History Past Medical History: acute [place], arthritis, GERD, hyperlipidemia, migraines, stroke Past Surgical History: appendectomy, cholecystectomy, total hip replacement Social history: single. denies: smoking, alcohol abuse, prescription drug abuse Family history: hypertension Medications and Allergies Allergies Allergy/AdvReac Type Severity Reaction Status Date / Time No Known Allergies Allergy Verified 05/21/21 15:40 Home Medications Medication Instructions Recorded Confirmed Last Taken Type Ferrous Sulfate [Feosol 325 MG tab] 325 mg PO BID #60 tablet 02/10/21 11/05/21 06/28/21 Rx HYDROcodone/APAP 7.5-325 [[place] 1 each PO Q6HR PRN #15 tablet 02/10/21 11/05/21 06/28/21 Rx 7.5-325 mg TAB] AtorvaSTATin [Lipitor] 40 mg PO QHS 05/28/21 11/05/21 06/28/21 History Gabapentin [Neurontin] 300 mg PO Q8HR 05/28/21 11/05/21 06/28/21 History Tamsulosin [Flomax] 0.4 mg PO QDAY 05/28/21 11/05/21 06/28/21 History Valsartan [Diovan] 320 mg PO QDAY 05/28/21 11/05/21 06/28/21 History carvediloL [Coreg] 12.5 mg PO BID 05/28/21 11/05/21 06/28/21 History cloNIDine [Catapres] 0.2 mg PO BID 05/28/21 11/05/21 06/28/21 History traMADoL [Ultram] 50 mg PO Q4HR PRN 05/28/21 11/05/21 06/28/21 History Aspirin [Adult Aspirin] 81 mg PO DAILY 05/29/21 11/05/21 06/28/21 History amLODIPine [Norvasc] 10 mg PO DAILY 10/04/1811/05/21 06/28/21 History Oxycodone HCl/Acetaminophen 1 each PO Q6HR PRN #30 tablet 07/09/21 11/05/21 Unknown Rx [Percocet 10/325 mg] Apixaban [Eliquis] 5 mg PO DAILY #30 tablet 07/10/21 11/05/21 Unknown Rx Oxycodone HCl/Acetaminophen 1 each PO Q6HR PRN #30 tablet 07/10/21 11/05/21 Unknown Rx [Percocet 10/325 mg] Active Meds: Active Medications Acetaminophen (Acetaminophen 325 Mg Tab) 650 mg PO Q4H PRN PRN Reason: Pain MILD(1-3)/Fever >100.5/MCGHEE Albuterol (Albuterol 2.5 Mg/3 Ml Nebu) 2.5 mg IH Q4HRT PRN PRN Reason: Shortness Of Breath Amlodipine Besylate (Amlodipine 10 Mg Tab) 10 mg PO DAILY [facility] Last Admin: 11/05/21 10:05 Dose: 10 mg Apixaban (Apixaban 2.5 Mg Tab) 2.5 mg PO BID [facility] Last Admin: 11/05/21 10:07 Dose: 2.5 mg Aspirin (Aspirin Ec 81 Mg Tab) 81 mg PO DAILY [facility] Last Admin: 11/05/21 10:08 Dose: 81 mg Atorvastatin Calcium (Atorvastatin 40 Mg Tab) 40 mg PO QHS [facility] Last Admin: 11/04/21 22:55 Dose: 40 mg Carvedilol (Carvedilol 12.5 Mg Tab) 12.5 mg PO BID [facility] Last Admin: 11/05/21 10:06 Dose: 12.5 mg Clonidine HCl (Clonidine 0.2 Mg Tab) 0.2 mg PO BID [facility] Last Admin: 11/05/21 10:06 Dose: 0.2 mg Ferrous Sulfate (Ferrous Sulfate 325 Mg Tab) 325 mg PO BID [facility] Last Admin: 11/05/21 10:08 Dose: 325 mg Gabapentin (Gabapentin 300 Mg Cap) 300 mg PO Q8HR [facility] Last Admin: 11/05/21 06:33 Dose: Not Given Hydromorphone HCl (Hydromorphone 1 Mg/1 Ml Inj) 0.5 mg IV Q3H PRN PRN Reason: Pain , Severe (7-10) Last Admin: 11/05/21 10:31 Dose: 0.5 mg Sodium Chloride (Nacl 0.9% 1000 Ml) 1,000 mls @ 75 mls/hr IV DIRECT [facility] Last Admin: 11/04/21 22:58 Dose: 75 mls/hr Ondansetron HCl (Ondansetron 4 Mg/2 Ml Inj) 4 mg IV Q8H PRN PRN Reason: Nausea And Vomiting Oxycodone/Acetaminophen (Oxycodone /Acetaminophen 5-325mg Tab) 1 tab PO Q6H PRN PRN Reason: Pain, Moderate (4-6) Sodium Chloride (Sodium Chloride 0.9% 10 Ml Flush Syringe) 10 ml IV BID [facility] Last Admin: 11/05/21 10:08 Dose: 10 ml Sodium Chloride (Sodium Chloride 0.9% 10 Ml Flush Syringe) 10 ml IV PRN PRN PRN Reason: LINE FLUSH Tamsulosin HCl (Tamsulosin 0.4 Mg Cap) 0.4 mg PO QDAY [facility] Last Admin: 11/05/21 10:08 Dose: 0.4 mg Tramadol HCl (Tramadol 50 Mg Tab) 50 mg PO Q4HR PRN PRN Reason: PAIN Valsartan (Valsartan 160mg Tab) 320 mg PO QDAY [facility] Last Admin: 11/05/21 10:07 Dose: 320 mg Physical Examination - Physical exam Narrative exam: Significant musculoskeletal findings relates to the right lower extremity here patient is noted to have multiple well-healed scars at both the hip and around the knee patient has moderate swelling skin is intact there is obvious deformity at the distal femur or thigh there is crepitus noted on palpation as well as tenderness distal neurovascular status is intact Eyes: PERRL ENT: Positive: clear oral mucosa Respiratory effort: normal Respiratory: bilateral: CTA Rhythm: regular Heart Sounds: Positive: S1 & S2 General gastrointestinal: Positive: soft, non-tender, non-distended, normal bowel sounds Integumentary: clear, warm, dry Neurologic: Positive: CNII-XII intact, moves all extremities, gait normal. Negative: focal deficits - Cervical Spine Neck pain: none Tenderness with palpation: none Full ROM: yes ROM: flexion: normal ROM: extension: normal ROM: rotation right: normal ROM: rotation left: normal ROM: lateral flexion right: normal ROM: lateral flexion left: normal - Lumbar Spine Back pain: none Tenderness with palpation: none Appearance: normal Full ROM: yes ROM: flexion: normal ROM: extension: normal ROM: rotation right: normal ROM: rotation left: normal ROM: lateral flexion right: normal ROM: lateral flexion left: normal Assessment and Plan Right distal femur fracture status post right total knee replacement Recommendations patient will require operative fixation via intramedullary nailing followed by physical therapy for rehab
--- NOTE | 2021-11-05 17:05 | Procedure Note ---
Date of procedure: 11/05/21 Pre-op diagnosis: Displaced right distal femur fracture status post right total knee replacem Post-op diagnosis: same Procedure: Closed reduction and insertion of intramedullary nail right femur Procedure The patient was brought to the OR and placed on the OR table in the supine position following induction and intubation by anesthesia the patient's right lower extremity was prepped from the hip down to the right foot. A timeout procedure was done to identify the patient and the correct operative site. The leg was exsanguinated followed by inflation of the pneumatic tourniquet to 300 mmHg. An incision was made at the inferior pole of the patella and taken down distally to the tibial tubercle incision was carried through skin and through the patella tendon with the knee in a 40/90 flexed position a guide pin was inserted under C-arm visualization care was taken to visualize both in the AP and lateral planes next the guidepin was then overreamed following this a guidewire was inserted into the distal fragment and across to fracture approx imately the wire was then placed in the proximal femur just at the level of the lesser trochanter Distal femur was sequentially reamed up to a 12.5 mm millimeter diameter measuring the length of the geoffrey a 280 mm long geoffrey was selected again with the knee and a 90 flexed position the intramedullary geoffrey was inserted in a retrograde manner into the distal femur across the fracture site and into the proximal fragment Using the targeting device was placed into the distal femur fragment along the lateral border measuring the lengths a 80 and a 45 mm long screws were selected next the knee and leg was brought into full extension traction was placed on the leg to reduce the distal femur fracture into a more reduced position Again using the C-arm fluoroscope a proximal locking screw was inserted measuring 45 mm in length following this the wound was copiously irrigated the patellar tendon was repaired along with the soft tissues. post op Dressings were applied the patient tolerated the procedure there were no complication. He was extubated and was taken to postanesthesia recovery in stable condition Anesthesia: GETA Surgeon: APARNA TINAJERO Estimated blood loss: other (200 cc) Pathology: none Condition: stable Disposition: PACU
--- NOTE | 2021-11-05 17:35 | XRay Report ---
Right femur 4 views INDICATION: Surgery FINDINGS: Total fluoroscopy time 1 minute 25 seconds for right femur surgery. Signer Name: Tato Evangelista MD Signed: 11/05/2021 5:31 PM Workstation Name: [id number] [id number]
--- NOTE | 2021-11-05 18:37 | Post Anesthesia Evaluation ---
- Post Anesthesia Evaluation Patient Participated: Yes Airway Patent: Yes Stable Respiratory Function: Yes Nausea/Vomiting: No Temp > 96.8F: Yes Pain Manageable: Yes Adequeate Hydration: Yes Anesthesia Complications: No Block Receding Appropriately: Not Applicable Patient on Ventilator: No
[2021-11-05] MEDS: SODIUM CHLORIDE 0.9% 1000 ML 1,000 ML IV SCH (22:56)
[2021-11-06] MEDS: HYDROmorphone 1 MG/1 ML INJ IV PRN ×2 (03:46→13:50)
[2021-11-06] MEDS: GABAPENTIN 300 MG CAP PO SCH ×3 (05:33→23:23)
[2021-11-06 07:39] LABS: Hematocrit 25.4 % (35.5-45.6); Hemoglobin 7.7 gm/dl (11.8-15.2)
--- NOTE | 2021-11-06 09:00 | Progress Note ---
Assessment and Plan Assessment and plan: Right femur fracture, status post intramedullary nailing on 11/05 GERD Osteoarthritis Migraine headache Asthma without acute exacerbation CKD 3, stable at baseline creatinine 2.0 11/05/2021. Patient is at baseline with regards to creatinine. No evidence of acute kidney injury. Patient with a creatinine of 2.01 July 2021. Patient with femur x-ray which revealed spiral moderately displaced distal right femoral diaphyseal fracture. Await orthopedics consultation for right femur fracture. Continue supportive care and pain control. 11/06/2021: Postoperatively stable with a soft BP and hemoglobin down to 7.7. Creatinine remains stable at 2.0. Patient reports significant pain in that extremity postoperatively and and states he could barely stand up with PT today. Discharge plans as per orthopedic and [employer]er [employer]. History Interval history: Patient reports severe postoperative pain in right lower extremity. Patient reports that he could barely stand up with PT. Afebrile, BP soft 106/61, pulse rate 87. Hemoglobin 7.7 postoperatively on 411. Creatinine 2 at the baseline. Hospitalist Physical - Constitutional Vitals: Temp Pulse Resp BP Pulse Ox 98.0 F 87 19 106/61 100 11/06/21 04:59 11/06/21 04:59 11/06/21 04:59 11/06/21 04:59 11/06/21 04:59 General appearance: Present: mild distress, obese - EENT Eyes: Present: PERRL, EOM intact ENT: clear oral mucosa - Neck Neck: Present: supple - Respiratory Respiratory effort: normal Respiratory: bilateral: CTA - Cardiovascular Rhythm: regular - Extremities Extremity abnormal: other (Postoperative dressings in place and right lower extremity. Some edema noted. Right pedal pulses normal. Able to move right toes.) - Abdominal General gastrointestinal: soft, non-tender, non-distended, normal bowel sounds - Integumentary Integumentary: Absent: rash - Psychiatric Psychiatric: appropriate mood/affect - Neurologic Neurologic: moves all extremities, other (Alert and oriented, normal speech) Results - Labs CBC & Chem 7: 11/06/21 07:09 11/05/21 04:23 Labs: Laboratory Last Values WBC 11.6 K/mm3 (4.5-11.0) H 11/04/21 17:53 RBC 5.46 M/mm3 (3.65-5.03) H 11/04/21 17:53 Hgb 7.7 gm/dl (11.8-15.2) L D 11/06/21 07:09 Hct 25.4 % (35.5-45.6) L D 11/06/21 07:09 MCV 67 fl (84-94) L 11/04/21 17:53 MCH 20 pg (28-32) L 11/04/21 17:53 MCHC 30 % (32-34) L 11/04/21 17:53 RDW 19.5 % (13.2-15.2) H 11/04/21 17:53 Plt Count 389 K/mm3 (140-440) 11/04/21 17:53 PT 14.3 Sec. (12.2-14.9) 11/04/21 17:53 INR 1.00 (0.87-1.13) 11/04/21 17:53 Sodium 140 mmol/L (137-145) 11/05/21 04:23 Potassium 4.3 mmol/L (3.6-5.0) 11/05/21 04:23 Chloride 105.6 mmol/L (98-107) 11/05/21 04:23 Carbon Dioxide 21 mmol/L (22-30) L 11/05/21 04:23 Anion Gap 18 mmol/L 11/05/21 04:23 BUN 18 mg/dL (9-20) 11/05/21 04:23 Creatinine 2.0 mg/dL (0.8-1.3) H 11/05/21 04:23 Estimated GFR 41 ml/min 11/05/21 04:23 BUN/Creatinine Ratio 9 % 11/05/21 04:23 Glucose 129 mg/dL (75-100) H 11/05/21 04:23 POC Glucose 131 mg/dL (70-105) H 11/05/21 17:47 Calcium 8.5 mg/dL (8.4-10.2) 11/05/21 04:23 Magnesium 1.90 mg/dL (1.7-2.3) 11/04/21 17:53 Total Creatine Kinase 161 units/L (55-170) 11/04/21 17:53 Weaver/IV: Voiding Method Urinal Active Medications - Current Medications Current Medications: Generic Name Dose Route Start Last Admin Trade Name Freq PRN Reason Stop Dose Admin Acetaminophen 650 mg 11/04/21 20:03 Acetaminophen 325 Mg Tab PO Q4H PRN Pain MILD(1-3)/Fever >100.5/MCGHEE Albuterol 2.5 mg 11/04/21 20:03 Albuterol 2.5 Mg/3 Ml Nebu IH Q4HRT PRN Shortness Of Breath Amlodipine Besylate 10 mg 11/05/21 10:00 11/05/21 10:05 Amlodipine 10 Mg Tab PO 10 mg DAILY JOSIE Administration Aspirin 81 mg 11/05/21 10:00 11/05/21 10:08 Aspirin Ec 81 Mg Tab PO 81 mg DAILY JOSIE Administration Atorvastatin Calcium 40 mg 11/04/21 22:00 11/05/21 22:44 Atorvastatin 40 Mg Tab PO 40 mg QHS JOSIE Administration Carvedilol 12.5 mg 11/04/21 22:00 11/05/21 22:44 Carvedilol 12.5 Mg Tab PO 12.5 mg BID JOSIE Administration Clonidine HCl 0.2 mg 11/04/21 22:00 11/05/21 22:42 Clonidine 0.2 Mg Tab PO 0.2 mg BID JOSIE Administration Enoxaparin Sodium 40 mg 11/06/21 10:00 Enoxaparin 40 Mg/0.4 Ml Inj SUB-Q QDAY JOSIE Ferrous Sulfate 325 mg 11/04/21 22:00 11/05/21 22:43 Ferrous Sulfate 325 Mg Tab PO 325 mg BID JOSIE Administration Gabapentin 300 mg 11/04/21 22:00 11/06/21 05:33 Gabapentin 300 Mg Cap PO 300 mg Q8HR JOSIE Administration Hydromorphone HCl 0.5 mg 11/04/21 20:03 11/06/21 03:46 Hydromorphone 1 Mg/1 Ml Inj IV 0.5 mg Q3H PRN Administration Pain , Severe (7-10) Hydromorphone HCl 0.5 mg 11/05/21 17:33 11/05/21 18:00 Hydromorphone 1 Mg/1 Ml Inj IV 11/06/21 17:32 0.5 mg Q10MIN PRN Administration Pain , Severe (7-10) Sodium Chloride 1,000 mls @ 75 mls/hr 11/04/21 20:15 11/05/21 22:56 Nacl 0.9% 1000 Ml IV 75 mls/hr DIRECT JOSIE Administration Ondansetron HCl 4 mg 11/04/21 20:03 Ondansetron 4 Mg/2 Ml Inj IV Q8H PRN Nausea And Vomiting Oxycodone/Acetaminophen 1 tab 11/04/21 20:03 Oxycodone /Acetaminophen 5-325mg Tab PO Q6H PRN Pain, Moderate (4-6) Sodium Chloride 10 ml 11/04/21 22:00 11/05/21 22:45 Sodium Chloride 0.9% 10 Ml Flush Syringe IV 10 ml BID JOSIE Administration Sodium Chloride 10 ml 11/04/21 20:03 Sodium Chloride 0.9% 10 Ml Flush Syringe IV PRN PRN LINE FLUSH Sodium Chloride 10 ml 11/05/21 21:00 Sodium Chloride 0.9% 10 Ml Flush Syringe IV PRN JOSIE Tamsulosin HCl 0.4 mg 11/05/21 10:00 11/05/21 10:08 Tamsulosin 0.4 Mg Cap PO 0.4 mg QDAY JOSIE Administration Tramadol HCl 50 mg 11/04/21 20:02 Tramadol 50 Mg Tab PO Q4HR PRN PAIN Valsartan 320 mg 11/05/21 10:00 11/05/21 10:07 Valsartan 160mg Tab PO 320 mg QDAY JOSIE Administration
[2021-11-06] MEDS: FERROUS SULFATE 325 MG TAB PO SCH ×2 (10:21→23:23)
[2021-11-06] MEDS: TAMSULOSIN 0.4 MG CAP PO SCH (10:21)
[2021-11-06] MEDS: ENOXAPARIN 40 MG/0.4 ML INJ SUB-Q SCH (10:21)
[2021-11-06] MEDS: ASPIRIN EC 81 MG TAB PO SCH (10:21)
[2021-11-06] MEDS: amLODIPine 10 MG TAB PO SCH (10:22)
[2021-11-06] MEDS: carvediloL 12.5 MG TAB PO SCH ×2 (10:22→23:25)
[2021-11-06] MEDS: VALSARTAN 160MG TAB PO SCH (10:23)
[2021-11-06] MEDS: cloNIDine 0.2 MG TAB PO SCH ×2 (10:23→23:25)
[2021-11-06] MEDS: oxyCODONE /ACETAMINOPHEN 5-325MG TAB PO PRN ×2 (10:27→18:24)
[2021-11-06] MEDS: SODIUM CHLORIDE 0.9% 1000 ML 1,000 ML IV SCH (20:55)
[2021-11-07] MEDS: oxyCODONE /ACETAMINOPHEN 5-325MG TAB PO PRN ×2 (01:34→10:19)
[2021-11-07] MEDS: GABAPENTIN 300 MG CAP PO SCH ×2 (06:14→21:15)
[2021-11-07 06:41] LABS: Hematocrit 22.8 % (35.5-45.6); Mean Corpuscular HGB Conc 31 % (32-34); Platelet Count 249 K/mm3 (140-440); Red Blood Count 3.38 M/mm3 (3.65-5.03); Red Cell Distribution Width 18.7 % (13.2-15.2)
[2021-11-07 06:47] LABS: Mean Corpuscular Volume 68 fl (84-94)
[2021-11-07 07:00] LABS: Calcium 7.7 mg/dL (8.4-10.2)
[2021-11-07] MEDS: FERROUS SULFATE 325 MG TAB PO SCH ×2 (10:19→21:15)
[2021-11-07] MEDS: TAMSULOSIN 0.4 MG CAP PO SCH (10:19)
[2021-11-07] MEDS: ENOXAPARIN 40 MG/0.4 ML INJ SUB-Q SCH (10:19)
[2021-11-07] MEDS: carvediloL 12.5 MG TAB PO SCH (10:22)
[2021-11-07] MEDS: amLODIPine 10 MG TAB PO SCH (10:22)
[2021-11-07] MEDS: ASPIRIN EC 81 MG TAB PO SCH (10:23)
[2021-11-07] MEDS: ENOXAPARIN 30 MG/0.3 ML INJ SUB-Q SCH (10:30)
--- NOTE | 2021-11-07 11:10 | XRay Report ---
RIGHT FEMUR 2 VIEWS INDICATION: post op evaluation. COMPARISON: 11/04/2021 IMPRESSION: Spiral fracture of the distal femur has been internally fixated with intramedullary geoffrey and screws. Alignment is near-anatomic. Previous right femoral neck fixation and right knee replacem ent are again noted. Signer Name: Ramiro Majano Jr, MD Signed: 11/07/2021 11:05 AM Workstation Name: [id number]
[2021-11-07 14:47] LABS: Total Cells Counted 100
[2021-11-07 14:48] LABS: Anisocytosis 2+; Hypochromasia 2+; Ovalocytes 1+; Platelet Estimate Consistent w Auto
[2021-11-07] MEDS ORDERED: amLODIPine 10 MG TAB PO SCH (17:44)
[2021-11-07] MEDS: METOPROLOL TARTRATE 50 MG TAB PO SCH (18:29)
[2021-11-07] MEDS: traMADol 50 MG TAB PO PRN (18:32)
[2021-11-07] MEDS: SODIUM CHLORIDE 0.9% 1000 ML 1,000 ML IV SCH (18:35)
--- NOTE | 2021-11-07 21:31 | Progress Note ---
Assessment and Plan Assessment and plan: 61 YO Male with CVA with LHP, OA, HTN, GA, GERD, Migraine MCGHEE, HLD, Asthma, BPH, prescribed therapeutic anticoagulation with which he is not compliant and does not know why anticoagulant was prescribed presents to ED for evaluation. Patient states "I tripped and fell down the stairs". Patient states that he has experienced chest discomfort and shortness of breath over the past 2 days with worsening symptoms over the past 1 day. Patient states that he was in his usual state of health and tripped while walking down the stairs and subsequently landed on his head as well as his right knee which broke his fall. Patient states he experienced right leg pain immediately after the fall and was unable t o bear weight on his right leg. Patient underwent x-ray of the right femur and was found to have a right femur fracture, acute kidney injury. Patient admitted to medical floor due to increased risk of worsening symptoms. Orthopedic surgery team consulted in ED. Assessment: Right femur fracture, status post intramedullary nailing on 11/05: Patient is able to ambulate few steps today. S/p right hip arthroplasty and a right knee arthroplasty Progressive acute blood loss anemia, hemoglobin dropping from 10.9-7.0 today 12 beat run of NSVT, asymptomatic on 11/07: Baseline mild sinus tachycardia 90- 100. Could be precipitated by acute blood loss anemia. Potassium 4.5. Troponin normal. No acute EKG changes otherwise. Cardiology consulted. Patient is on carvedilol 12.5 twice daily, changed to metoprolol 50 mg every 8 hours after discussing with the cardiology,Dr Pardo. Echocardiogram ordered. Ordered PRBC x1 unit. Will monitor closely on telemetry. History of CAD/GA follows at [facility]: Currently no chest pains, troponin normal, no acute changes on EKG. DICKSON on CKD 3, baseline creatinine 2.0, today 3.2, appears to be prerenal , ordered bladder scan to rule out obstructive element with history of BPH. GERD Osteoarthritis Migraine headache Asthma without acute exacerbation Daily events 11/05/2021. Patient is at baseline with regards to creatinine. No evidence of acute kidney injury. Patient with a creatinine of 2.01 July 2021. Patient with femur x-ray which revealed spiral moderately displaced distal right femoral diaphyseal fracture. Await orthopedics consultation for right femur fracture. Continue supportive care and pain control. 11/06/2021: Postoperatively stable with a soft BP and hemoglobin down to 7.7. Creatinine remains stable at 2.0. Patient reports significant pain in that extremity postoperatively and and states he could barely stand up with PT today. Discharge plans as per orthopedic and rn field case manager. 11/07/2021: Discharge deferred due to NSVT and DICKSON. History Interval history: Patient was able to get out of bed and walk few steps with PT today. Patient was seen by me along with Dr. Nix, orthopedic surgeon. Patient is unwilling to go for subacute rehab since he cannot afford. Later, patient had an asymptomatic a 12 beat run of wide QRS complex suggestive of VT. Potassium level normal. EKG most unchanged from the previous. Mild sinus tach rate 90- 100. BP stable. Patient denies palpitations, chest pains or lightheadedness. Patient is on his home carvedilol 12.5 mg twice daily, changed to metoprolol 50 mg p.o. every 8 hours after discussing with Dr. Pardo, steel fabricator. Troponin normal. Echocardiogram ordered. Patient remains on school lunch monitor. Discharge deferred. Patient does report seeing a steel fabricator at [facility] with history of CAD/GA but is unable to give more detailed cardiac history. Hospitalist Physical - Constitutional Vitals: Temp Pulse Resp BP Pulse Ox 98.3 F 88 18 119/63 96 11/07/21 17:23 11/07/21 18:29 11/07/21 17:23 11/07/21 17:23 11/07/21 17:23 General appearance: Present: no acute distress, obese - EENT Eyes: Present: PERRL, EOM intact ENT: clear oral mucosa - Neck Neck: Present: supple - Respiratory Respiratory effort: normal Respiratory: bilateral: CTA - Cardiovascular Rhythm: regular - Extremities Extremity abnormal: erythema (Postop, right lower extremity) - Abdominal General gastrointestinal: soft, non-tender - Integumentary Integumentary: Absent: rash - Psychiatric Psychiatric: appropriate mood/affect - Neurologic Neurologic: no focal deficits, moves all extremities HEART Score - HEART Score Troponin: Troponin T < 0.010 ng/mL (0.00-0.029) 11/07/21 17:58 Results - Labs CBC & Chem 7: 11/07/21 06:09 11/07/21 06:09 Labs: Laboratory Last Values WBC 10.2 K/mm3 (4.5-11.0) 11/07/21 06:09 RBC 3.38 M/mm3 (3.65-5.03) L 11/07/21 06:09 Hgb 7.0 gm/dl (11.8-15.2) L 11/07/21 06:09 Hct 22.8 % (35.5-45.6) L 11/07/21 06:09 MCV 68 fl (84-94) L 11/07/21 06:09 MCH 21 pg (28-32) L 11/07/21 06:09 MCHC 31 % (32-34) L 11/07/21 06:09 RDW 18.7 % (13.2-15.2) H 11/07/21 06:09 Plt Count 249 K/mm3 (140-440) 11/07/21 06:09 [place] % (Auto) Strategy Director 11/07/21 06:09 Add Manual Diff Complete 11/07/21 06:09 Total Counted 100 11/07/21 06:09 Seg Neuts % (Manual) 68.0 % (40.0-70.0) 11/07/21 06:09 Band Neutrophils % 0 % 11/07/21 06:09 Lymphocytes % (Manual) 20.0 % (13.4-35.0) 11/07/21 06:09 Reactive Lymphs % (Man) 0 % 11/07/21 06:09 Monocytes % (Manual) 8.0 % (0.0-7.3) H 11/07/21 06:09 Eosinophils % (Manual) 3.0 % (0.0-4.3) 11/07/21 06:09 Basophils % (Manual) 1.0 % (0.0-1.8) 11/07/21 06:09 Metamyelocytes % 0 % 11/07/21 06:09 Myelocytes % 0 % 11/07/21 06:09 Promyelocytes % 0 % 11/07/21 06:09 Blast Cells % 0 % 11/07/21 06:09 Nucleated RBC % Not Reportable 11/07/21 06:09 Seg Neutrophils # Man 6.9 K/mm3 (1.8-7.7) 11/07/21 06:09 Band Neutrophils # 0.0 K/mm3 11/07/21 06:09 Lymphocytes # (Manual) 2.0 K/mm3 (1.2-5.4) 11/07/21 06:09 Abs React Lymphs (Man) 0.0 K/mm3 11/07/21 06:09 Monocytes # (Manual) 0.8 K/mm3 (0.0-0.8) 11/07/21 06:09 Eosinophils # (Manual) 0.3 K/mm3 (0.0-0.4) 11/07/21 06:09 Basophils # (Manual) 0.1 K/mm3 (0.0-0.1) 11/07/21 06:09 Metamyelocytes # 0.0 K/mm3 11/07/21 06:09 Myelocytes # 0.0 K/mm3 11/07/21 06:09 Promyelocytes # 0.0 K/mm3 11/07/21 06:09 Blast Cells # 0.0 K/mm3 11/07/21 06:09 WBC Morphology Not Reportable 11/07/21 06:09 Hypersegmented Neuts Not Reportable 11/07/21 06:09 Hyposegmented Neuts Not Reportable 11/07/21 06:09 Hypogranular Neuts Not Reportable 11/07/21 06:09 Smudge Cells Not Reportable 11/07/21 06:09 Toxic Granulation Not Reportable 11/07/21 06:09 Toxic Vacuolation Not Reportable 11/07/21 06:09 Dohle Bodies Not Reportable 11/07/21 06:09 Pelger-Huet Anomaly Not Reportable 11/07/21 06:09 Ricci Rods Not Reportable 11/07/21 06:09 Platelet Estimate Consistent w auto 11/07/21 06:09 Clumped Platelets Not Reportable 11/07/21 06:09 Plt Clumps, EDTA Not Reportable 11/07/21 06:09 Large Platelets Not Reportable 11/07/21 06:09 Giant Platelets Not Reportable 11/07/21 06:09 Platelet Satelliting Not Reportable 11/07/21 06:09 Plt Morphology Comment Not Reportable 11/07/21 06:09 RBC Morphology Not Reportable 11/07/21 06:09 Dimorphic RBCs Not Reportable 11/07/21 06:09 Polychromasia Not Reportable 11/07/21 06:09 Hypochromasia 2+ 11/07/21 06:09 Poikilocytosis Not Reportable 11/07/21 06:09 Anisocytosis 2+ 11/07/21 06:09 Microcytosis 2+ 11/07/21 06:09 Macrocytosis Not Reportable 11/07/21 06:09 Spherocytes Not Reportable 11/07/21 06:09 Pappenheimer Bodies Not Reportable 11/07/21 06:09 Sickle Cells Not Reportable 11/07/21 06:09 Target Cells Not Reportable 11/07/21 06:09 Tear Drop Cells Not Reportable 11/07/21 06:09 Ovalocytes 1+ 11/07/21 06:09 Helmet Cells Not Reportable 11/07/21 06:09 Villa-Gay Bodies Not Reportable 11/07/21 06:09 [place] Rings Not Reportable 11/07/21 06:09 Syed Cells Not Reportable 11/07/21 06:09 Bite Cells Not Reportable 11/07/21 06:09 Crenated Cell Not Reportable 11/07/21 06:09 Elliptocytes 1+ 11/07/21 06:09 Acanthocytes (Spur) Not Reportable 11/07/21 06:09 Rouleaux Not Reportable 11/07/21 06:09 Hemoglobin C Crystals Not Reportable 11/07/21 06:09 Schistocytes Not Reportable 11/07/21 06:09 Malaria parasites Not Reportable 11/07/21 06:09 Lavelle Bodies Not Reportable 11/07/21 06:09 Hem Pathologist Commnt No 11/07/21 06:09 PT 14.3 Sec. (12.2-14.9) 11/04/21 17:53 INR 1.00 (0.87-1.13) 11/04/21 17:53 Sodium 138 mmol/L (137-145) 11/07/21 06:09 Potassium 4.5 mmol/L (3.6-5.0) 11/07/21 06:09 Chloride 107.8 mmol/L (98-107) H 11/07/21 06:09 Carbon Dioxide 19 mmol/L (22-30) L 11/07/21 06:09 Anion Gap 16 mmol/L 11/07/21 06:09 BUN 31 mg/dL (9-20) H 11/07/21 06:09 Creatinine 3.2 mg/dL (0.8-1.3) H D 11/07/21 06:09 Estimated GFR 24 ml/min 11/07/21 06:09 BUN/Creatinine Ratio 10 % 11/07/21 06:09 Glucose 120 mg/dL (75-100) H 11/07/21 06:09 POC Glucose 131 mg/dL (70-105) H 11/05/21 17:47 Calcium 7.7 mg/dL (8.4-10.2) L 11/07/21 06:09 Magnesium 1.90 mg/dL (1.7-2.3) 11/04/21 17:53 Total Creatine Kinase 161 units/L (55-170) 11/04/21 17:53 Troponin T < 0.010 ng/mL (0.00-0.029) 11/07/21 17:58 Weaver/IV: Voiding Method Condom Catheter Active Medications - Current Medications Current Medications: Generic Name Dose Route Start Last Admin Trade Name Freq PRN Reason Stop Dose Admin Acetaminophen 650 mg 11/04/21 20:03 Acetaminophen 325 Mg Tab PO Q4H PRN Pain MILD(1-3)/Fever >100.5/MCGHEE Albuterol 2.5 mg 11/04/21 20:03 Albuterol 2.5 Mg/3 Ml Nebu IH Q4HRT PRN Shortness Of Breath Amlodipine Besylate 2.5 mg 11/08/21 10:00 Amlodipine 5 Mg Tab PO QDAY JOSIE Aspirin 81 mg 11/05/21 10:00 11/07/21 10:23 Aspirin Ec 81 Mg Tab PO 81 mg DAILY JOSIE Administration Atorvastatin Calcium 40 mg 11/04/21 22:00 11/07/21 21:15 Atorvastatin 40 Mg Tab PO 40 mg QHS JOSIE Administration Enoxaparin Sodium 30 mg 11/07/21 11:00 11/07/21 10:30 Enoxaparin 30 Mg/0.3 Ml Inj SUB-Q 30 mg QDAY JOSIE Administration Ferrous Sulfate 325 mg 11/04/21 22:00 11/07/21 21:15 Ferrous Sulfate 325 Mg Tab PO 325 mg BID JOSIE Administration Gabapentin 300 mg 11/07/21 22:00 11/07/21 21:15 Gabapentin 300 Mg Cap PO 300 mg Q12HR JOSIE Administration Hydromorphone HCl 0.5 mg 11/04/21 20:03 11/06/21 13:50 Hydromorphone 1 Mg/1 Ml Inj IV 0.5 mg Q3H PRN Administration Pain , Severe (7-10) Sodium Chloride 1,000 mls @ 75 mls/hr 11/04/21 20:15 11/07/21 18:35 Nacl 0.9% 1000 Ml IV 75 mls/hr DIRECT JOSIE Administration Metoprolol Tartrate 50 mg 11/07/21 18:00 11/07/21 18:29 Metoprolol Tartrate 50 Mg Tab PO 50 mg Q8H JOSIE Administration Ondansetron HCl 4 mg 11/04/21 20:03 Ondansetron 4 Mg/2 Ml Inj IV Q8H PRN Nausea And Vomiting Oxycodone/Acetaminophen 1 tab 11/04/21 20:03 11/07/21 10:19 Oxycodone /Acetaminophen 5-325mg Tab PO 1 tab Q6H PRN Administration Pain, Moderate (4-6) Sodium Chloride 10 ml 11/04/21 22:00 11/07/21 21:15 Sodium Chloride 0.9% 10 Ml Flush Syringe IV 10 ml BID JOSIE Administration Sodium Chloride 10 ml 11/04/21 20:03 Sodium Chloride 0.9% 10 Ml Flush Syringe IV PRN PRN LINE FLUSH Sodium Chloride 10 ml 11/05/21 21:00 Sodium Chloride 0.9% 10 Ml Flush Syringe IV PRN JOSIE Tamsulosin HCl 0.4 mg 11/05/21 10:00 11/07/21 10:19 Tamsulosin 0.4 Mg Cap PO 0.4 mg QDAY JOSIE Administration Tramadol HCl 50 mg 11/04/21 20:02 11/07/21 18:32 Tramadol 50 Mg Tab PO 50 mg Q4HR PRN Administration PAIN
[2021-11-07] MEDS ORDERED: SODIUM CHLORIDE 0.9% 500 ML 500 ML IV ONE (21:40)
[2021-11-08] MEDS: METOPROLOL TARTRATE 50 MG TAB PO SCH ×3 (03:40→18:52)
[2021-11-08 05:50] LABS: Hematocrit 23.2 % (35.5-45.6); Hemoglobin 6.9 gm/dl (11.8-15.2); Mean Corpuscular HGB Conc 30 % (32-34); Platelet Count 247 K/mm3 (140-440); Red Blood Count 3.48 M/mm3 (3.65-5.03); Red Cell Distribution Width 18.5 % (13.2-15.2)
[2021-11-08 06:00] LABS: Mean Corpuscular Volume 67 fl (84-94)
[2021-11-08] MEDS ORDERED: SODIUM CHLORIDE 0.9% 500 ML 500 ML IV ONE (06:10)
[2021-11-08 06:16] LABS: Alanine Aminotransferase 9 units/L (7-56); Albumin 2.8 g/dL (3.9-5); BUN/Creatinine Ratio 11; Blood Urea Nitrogen 28 mg/dL (9-20); Calcium 8.1 mg/dL (8.4-10.2); Hemolysis Index 0
[2021-11-08] MEDS: ACETAMINOPHEN 325 MG TAB PO PRN ×3 (07:50→22:19)
[2021-11-08] MEDS: amLODIPine 5 MG TAB PO SCH (09:16)
[2021-11-08] MEDS: ASPIRIN EC 81 MG TAB PO SCH (09:16)
[2021-11-08] MEDS: FERROUS SULFATE 325 MG TAB PO SCH ×2 (09:17→22:18)
[2021-11-08] MEDS: GABAPENTIN 300 MG CAP PO SCH ×2 (09:17→22:18)
[2021-11-08] MEDS: TAMSULOSIN 0.4 MG CAP PO SCH (09:17)
[2021-11-08] MEDS: ENOXAPARIN 30 MG/0.3 ML INJ SUB-Q SCH (09:17)
[2021-11-08] MEDS: traMADol 50 MG TAB PO PRN (09:23)
--- NOTE | 2021-11-08 09:32 | Electrocardiograph Report ---
[facility] Test Date: 2021-11-07 Test Time: 13:20:42 Pat Name: WHITLEY ARCHULETA Department: Room: [facility] Gender: M Director Women: JANINE : 1960 Requested By: SEDA WALKER Order Number: [id number] Reading MD: Odell Farmer Measurements Intervals [place] Rate: 100 P: 56 [place]: 163 QRS: -19 QRSD: 74 T: 87 QT: 322 QTc: 414 Interpretive Statements Sinus tachycardia Anterior infarct, old Compared to ECG 11/05/2021 08:13:57 Sinus rhythm no longer present Ventricular premature complex(es) no longer present Left-axis deviation no longer present Myocardial infarct finding still present Electronically Signed On 11-08-2021 9:31:54 EST by Odell Farmer
--- NOTE | 2021-11-08 09:50 | Event Note ---
Date: 11/08/[address] Nixon from prior admission just 6 months ago. Please refer to his service for continued cardiac care and management.
[2021-11-08 10:47] LABS: Total Cells Counted 100
[2021-11-08 10:48] LABS: Anisocytosis 1+; Hypochromasia 2+; Ovalocytes 1+; Poikilocytosis 1+
[2021-11-08 10:50] LABS: Platelet Estimate Consistent w Auto
--- NOTE | 2021-11-08 12:21 | Progress Note ---
Assessment and Plan Patient is a 61-year-old male with a past medical history of CVA, hypertension, CKD, hyperlipidemia, asthma right hip arthroplasty and right knee arthroplasty who presented to the ED on 11/04/2021 for tripping and falling down stairs and found to have fracture femur. Patient s/p intramedullary nailing on 11/05 and had 12 beat run of NSVT. Right femur fracture, status post intramedullary nailing on 11/05/2021 S/p right hip arthroplasty and a right knee arthroplasty Anemia DICKSON on CKD H/o CVA Hepatitis C HTN GERD Asthma DM Echo 02/10/2021-EF 60 to 65%. Mild concentric LVH. Mild diastolic dysfunction is present impaired relaxation pattern. Right ventricular systolic function normal. Trace tricuspid regurgitation Plan: EKG shows sinus tach 100 with previous NV finding present. However no acute ischemic changes. Troponins negative x2. Patient denies any complaint of chest pain. AMI ruled Patient had 12 beat run of NSVT yesterday morning. However patient has not had any further episodes. Possibly result of anemia Agree with amlodipine 2.5 mg p.o. daily, aspirin, Lipitor, and metoprolol 50 mg p.o. every 8 hour Echo pending Recommend close monitoring of H&H and transfusion of PRBCs if hemoglobin less than 7 Patient seen in conjunction with Dr. Farmer who agrees with this plan of care - Patient Problems (1) Fall Current Visit: Yes Status: Acute (2) GERD (gastroesophageal reflux disease) Current Visit: Yes Status: Acute Qualifiers: Esophagitis presence: without esophagitis Qualified Code(s): K21.9 - Gastro-esophageal reflux disease without esophagitis (3) Osteoarthritis Current Visit: Yes Status: Acute (4) Right femoral fracture Current Visit: Yes Status: Acute (5) DICKSON (acute kidney injury) Current Visit: No Status: Acute (6) Anemia in chronic kidney disease (CKD) Current Visit: No Status: Acute (7) H/O: CVA (cerebrovascular accident) Current Visit: No Status: Chronic (8) LUÍS (obstructive sleep apnea) Current Visit: No Status: Chronic (9) Obesity (BMI 30.0-34.9) Current Visit: No Status: Chronic Subjective Date of service: 11/08/21 Principal diagnosis: Right femur fracture Interval history: Patient is a 61-year-old male with a past medical history of CVA, hypertension, CKD, hyperlipidemia, asthma right hip arthroplasty and right knee arthroplasty who presented to the ED on 11/04/2021 for tripping and falling down stairs. History taken primarily from chart due to patient being poor historian. In the ED patient was found to have right femur fracture and is currently s/p intramedullary nailing on 11/05/2021. Patient has also had significant drop in hemoglobin coming in with hemoglobin of 10.9 and dropping to 6.9. On 11/07/2021 patient had a 12 beat run of NSVT on [place]ra cot[place] mason. AHA was initially consulted however patient was previously seen by our group during admission on 02/15/2021 and the consult was changed [facility]. Patient pre viously on Coreg 12.5 mg p.o. twice daily but has been switched to metoprolol 50 mg p.o. every 8 hours. At time of interview patient denies any cardiac complaints including shortness of breath, chest pain, nausea, vomiting, palpitations, or diaphoresis. Cardiology is consulted for run of NSVT. Objective Vital Signs Temp Pulse Resp BP Pulse Ox 11/08/21 09:19 82 11/08/21 09:16 136/68 11/08/21 09:12 98.6 F 74 20 130/71 98 11/08/21 08:42 98.6 F 82 136/68 98 11/08/21 08:12 98.0 F 88 20 120/71 98 11/08/21 07:42 99.3 F 92 H 18 105/78 98 11/08/21 07:12 99.3 F 90 20 107/71 11/08/21 06:57 98.4 F 92 H 18 110/64 100 11/08/21 06:46 99.0 F 88 20 127/77 99 11/08/21 04:51 99.0 F 88 20 127/77 99 11/08/21 00:00 18 97 11/07/21 22:05 98.9 F 90 20 130/71 95 11/07/21 18:29 88 11/07/21 17:23 98.3 F 93 H 18 119/63 96 11/07/21 12:27 97 - Physical Examination General: No Apparent Distress HEENT: Positive: PERRL Neck: Positive: trachea midline Cardiac: Positive: Reg Rate and Rhythm Lungs: Positive: Normal Breath Sounds Neuro: Positive: Grossly Intact Abdomen: Positive: Soft Skin: Negative: Rash, Suspicious Lesions, Ulceration Extremities: Present: upper extr. pulses. Absent: edema - Labs and Meds Cardiac Enzymes 11/08/21 Range/Units 04:30 AST 42 H (5-40) units/L CBC 11/08/21 Range/Units 04:30 WBC 9.4 (4.5-11.0) K/mm3 RBC 3.48 L (3.65-5.03) M/mm3 Hgb 6.9 L (11.8-15.2) gm/dl Hct 23.2 L (35.5-45.6) % Plt Count 247 (140-440) K/mm3 Comprehensive Metabolic Panel 11/08/21 Range/Units 04:30 Sodium 139 (137-145) mmol/L Potassium 4.3 (3.6-5.0) mmol/L Chloride 108.5 H (98-107) mmol/L Carbon Dioxide 21 L (22-30) mmol/L BUN 28 H (9-20) mg/dL Creatinine 2.6 H (0.8-1.3) mg/dL Glucose 125 H (75-100) mg/dL Calcium 8.1 L (8.4-10.2) mg/dL AST 42 H (5-40) units/L ALT 9 (7-56) units/L Alkaline Phosphatase 79 (35-129) units/L Total Protein 6.4 (6.3-8.2) g/dL Albumin 2.8 L (3.9-5) g/dL - Imaging and Cardiology Echo: pending, report reviewed - Telemetry EKG Rhythm: Sinus Rhythm - EKG Sinus rhythms and dysrhythmias: sinus rhythm Myocardial infarction: inferior NV (old age inde
--- NOTE | 2021-11-08 12:25 | Consultation ---
History of Present Illness Consult date: 11/08/21 Requesting physician: SEDA WALKER Consult reason: other (NSVT) History of present illness: Patient is a 61-year-old male with a past medical history of CVA, hypertension, CKD, hyperlipidemia, asthma right hip arthroplasty and right knee arthroplasty who presented to the ED on 11/04/2021 for tripping and falling down stairs. History taken primarily from chart due to patient being poor historian. In the E D patient was found to have right femur fracture and is currently s/p intramedullary nailing on 11/05/2021. Patient has also had significant drop in hemoglobin coming in with hemoglobin of 10.9 and dropping to 6.9. On 11/07/2021 patient had a 12 beat run of NSVT on campus monitor. AHA was initially c onsulted however patient was previously seen by our group during admission on 02/15/2021 and the consult was changed [facility]. Patient previously on Coreg 12.5 mg p.o. twice daily but has been switched to metoprolol 50 mg p.o. every 8 hours. At time of interview patient denies any cardiac complaints including shortness of breath, chest pain, nausea, vomiting, palpitations, or diaphoresis. Cardiology is consulted for run of NSVT Past History Past Medical History: acute [place], arthritis, GERD, hyperlipidemia, migraines, stroke Past Surgical History: appendectomy, cholecystectomy, total hip replacement Social history: single. denies: smoking, alcohol abuse, prescription drug abuse Family history: hypertension Medications and Allergies Allergies Allergy/AdvReac Type Severity Reaction Status Date / Time No Known Allergies Allergy Verified 11/07/21 13:48 Home Medications Medication Instructions Recorded Confirmed Last Taken Type Gabapentin [Neurontin] 300 mg PO Q8HR 05/28/21 11/05/21 06/28/21 History Tamsulosin [Flomax] 0.4 mg PO BID 05/28/21 11/07/21 06/28/21 History Valsartan [Diovan] 320 mg PO QDAY 05/28/21 11/05/21 06/28/21 History carvediloL [Coreg] 12.5 mg PO BID 05/28/21 11/05/21 06/28/21 History cloNIDine [Catapres] 0.2 mg PO BID 05/28/21 11/05/21 06/28/21 History amLODIPine [Norvasc] 10 mg PO DAILY 07/05/21 11/05/21 06/28/21 History Acetaminophen/Codeine [Tylenol 1 tab PO Q6H PRN 11/07/21 11/07/21 Unknown History /Codeine # 3 tab] Atorvastatin Calcium [Lipitor] 80 mg PO QDAY 11/07/21 11/07/21 Unknown History Nicotine [Habitrol] 1 patch TP DAILY 11/07/21 11/07/21 Unknown History metFORMIN [Glucophage] 500 mg PO BID 11/07/21 11/07/21 Unknown History Active Meds: Active Medications Acetaminophen (Acetaminophen 325 Mg Tab) 650 mg PO Q4H PRN PRN Reason: Pain MILD(1-3)/Fever >100.5/MCGHEE Last Admin: 11/08/21 07:50 Dose: 650 mg Albuterol (Albuterol 2.5 Mg/3 Ml Nebu) 2.5 mg IH Q4HRT PRN PRN Reason: Shortness Of Breath Amlodipine Besylate (Amlodipine 5 Mg Tab) 2.5 mg PO QDAY [facility] Last Admin: 11/08/21 09:16 Dose: 2.5 mg Aspirin (Aspirin Ec 81 Mg Tab) 81 mg PO DAILY [facility] Last Admin: 11/08/21 09:16 Dose: 81 mg Atorvastatin Calcium (Atorvastatin 40 Mg Tab) 40 mg PO QHS [facility] Last Admin: 11/07/21 21:15 Dose: 40 mg Enoxaparin Sodium (Enoxaparin 30 Mg/0.3 Ml Inj) 30 mg SUB-Q QDAY [facility] Last Admin: 11/08/21 09:17 Dose: 30 mg Ferrous Sulfate (Ferrous Sulfate 325 Mg Tab) 325 mg PO BID [facility] Last Admin: 11/08/21 09:17 Dose: 325 mg Gabapentin (Gabapentin 300 Mg Cap) 300 mg PO Q12HR [facility] Last Admin: 11/08/21 09:17 Dose: 300 mg Hydromorphone HCl (Hydromorphone 1 Mg/1 Ml Inj) 0.5 mg IV Q3H PRN PRN Reason: Pain , Severe (7-10) Last Admin: 11/06/21 13:50 Dose: 0.5 mg Sodium Chloride (Nacl 0.9% 1000 Ml) 1,000 mls @ 75 mls/hr IV DIRECT [facility] Last Admin: 11/07/21 18:35 Dose: 75 mls/hr Metoprolol Tartrate (Metoprolol Tartrate 50 Mg Tab) 50 mg PO Q8H [facility] Last Admin: 11/08/21 09:19 Dose: 50 mg Ondansetron HCl (Ondansetron 4 Mg/2 Ml Inj) 4 mg IV Q8H PRN PRN Reason: Nausea And Vomiting Oxycodone/Acetaminophen (Oxycodone /Acetaminophen 5-325mg Tab) 1 tab PO Q6H PRN PRN Reason: Pain, Moderate (4-6) Last Admin: 11/07/21 10:19 Dose: 1 tab Sodium Chloride (Sodium Chloride 0.9% 10 Ml Flush Syringe) 10 ml IV BID [facility] Last Admin: 11/08/21 09:17 Dose: 10 ml Sodium Chloride (Sodium Chloride 0.9% 10 Ml Flush Syringe) 10 ml IV PRN PRN PRN Reason: LINE FLUSH Sodium Chloride (Sodium Chloride 0.9% 10 Ml Flush Syringe) 10 ml IV PRN [facility] Tamsulosin HCl (Tamsulosin 0.4 Mg Cap) 0.4 mg PO QDAY [facility] Last Admin: 11/08/21 09:17 Dose: 0.4 mg Tramadol HCl (Tramadol 50 Mg Tab) 50 mg PO Q4HR PRN PRN Reason: PAIN Last Admin: 11/08/21 09:23 Dose: 50 mg Review of Systems Constitutional: no weight loss, no weight gain, no fever, no chills Ears, nose, mouth and throat: no nasal congestion, no nasal discharge, no sinus pressure Cardiovascular: palpitations, no chest pain, no orthopnea, no shortness of breath, no dyspnea on exertion Respiratory: no cough with sputum, no shortness of breath, no dyspnea on exertion Gastrointestinal: no abdominal pain, no nausea, no vomiting Musculoskeletal: low back pain, arthritis Integumentary: no rash, no pruritis, no redness Neurological: no tingling, no seizures, no syncope Psychiatric: no anxiety, no memory loss Endocrine: no cold intolerance, no heat intolerance Hematologic/Lymphatic: no easy bruising, no easy bleeding Physical Examination Vital Signs Temp Pulse Resp BP Pulse Ox 98.0 F 99 H 16 180/92 98 11/04/21 14:27 11/04/21 14:27 11/04/21 14:27 11/04/21 14:27 11/04/21 14:27 General appearance: no acute distress HEENT: Positive: PERRL Neck: Positive: trachea midline Cardiac: Positive: Reg Rate and Rhythm Lungs: Positive: Normal Breath Sounds Neuro: Positive: Grossly Intact Abdomen: Positive: Soft Extremities: Present: upper extr. pulses, edema Results 11/08/21 04:30 11/08/21 04:30 Cardiac Enzymes 11/08/21 Range/Units 04:30 AST 42 H (5-40) units/L CBC 11/08/21 Range/Units 04:30 WBC 9.4 (4.5-11.0) K/mm3 RBC 3.48 L (3.65-5.03) M/mm3 Hgb 6.9 L (11.8-15.2) gm/dl Hct 23.2 L (35.5-45.6) % Plt Count 247 (140-440) K/mm3 Comprehensive Metabolic Panel 11/08/21 Range/Units 04:30 Sodium 139 (137-145) mmol/L Potassium 4.3 (3.6-5.0) mmol/L Chloride 108.5 H (98-107) mmol/L Carbon Dioxide 21 L (22-30) mmol/L BUN 28 H (9-20) mg/dL Creatinine 2.6 H (0.8-1.3) mg/dL Glucose 125 H (75-100) mg/dL Calcium 8.1 L (8.4-10.2) mg/dL AST 42 H (5-40) units/L ALT 9 (7-56) units/L Alkaline Phosphatase 79 (35-129) units/L Total Protein 6.4 (6.3-8.2) g/dL Albumin 2.8 L (3.9-5) g/dL - Imaging and Cardiology Echo: pending, report reviewed EKG interpretations - Telemetry EKG Rhythm: Sinus Rhythm - EKG Sinus rhythms and dysrhythmias: sinus rhythm Myocardial infarction: inferior FL (old age inde Assessment and Plan Patient is a 61-year-old male with a past medical history of CVA, hypertension, CKD, hyperlipidemia, asthma right hip arthroplasty and right knee arthroplasty who presented to the ED on 11/04/2021 for tripping and falling down stairs and found to have fracture femur. Patient s/p intramedullary nailing on 11/05 and had 12 beat run of NSVT. Right femur fracture, status post intramedullary nailing on 11/05/2021 S/p right hip arthroplasty and a right knee arthroplasty Anemia DICKSON on CKD H/o CVA Hepatitis C HTN GERD Asthma DM Echo 02/10/2021-EF 60 to 65%. Mild concentric LVH. Mild diastolic dysfunction is present impaired relaxation pattern. Right ventricular systolic function normal. Trace tricuspid regurgitation Plan: EKG shows sinus tach 100 with previous FL finding present. However no acute ischemic changes. Troponins negative x2. Patient denies any complaint of chest pain. AMI ruled Patient had 12 beat run of NSVT yesterday morning. However patient has not had any further episodes. Possibly result of anemia Agree with amlodipine 2.5 mg p.o. daily, aspirin, Lipitor, and metoprolol 50 mg p.o. every 8 hour Echo pending Recommend close monitoring of H&H and transfusion of PRBCs if hemoglobin less than 7 Patient seen in conjunction with Dr. Farmer who agrees with this plan of care - Patient Problems (1) Fall Current Visit: Yes Status: Acute (2) GERD (gastroesophageal reflux disease) Current Visit: Yes Status: Acute Qualifiers: Esophagitis presence: without esophagitis Qualified Code(s): K21.9 - Gastro-esophageal reflux disease without esophagitis (3) Osteoarthritis Current Visit: Yes Status: Acute (4) Right femoral fracture Current Visit: Yes Status: Acute (5) DICKSON (acute kidney injury) Current Visit: No Status: Acute (6) Anemia in chronic kidney disease (CKD) Current Visit: No Status: Acute (7) H/O: CVA (cerebrovascular accident) Current Visit: No Status: Chronic (8) LUÍS (obstructive sleep apnea) Current Visit: No Status: Chronic (9) Obesity (BMI 30.0-34.9) Current Visit: No Status: Chronic
[2021-11-08 19:04] LABS: Hemoglobin 7.6 gm/dl (11.8-15.2)
--- NOTE | 2021-11-08 20:22 | Progress Note ---
Assessment and Plan Assessment and plan: 61 YO Male with CVA with LHP, OA, HTN, FL, GERD, Migraine MCGHEE, HLD, Asthma, BPH, prescribed therapeutic anticoagulation with which he is not compliant and does not know why anticoagulant was prescribed presents to ED for evaluation. Patient states "I tripped and fell down the stairs". Patient states that he has experienced chest discomfort and shortness of breath over the past 2 days with worsening symptoms over the past 1 day. Patient states that he was in his usual state of health and tripped while walking down the stairs and subsequently landed on his head as well as his right knee which broke his fall. Patient states he experienced right leg pain immediately after the fall and was unable t o bear weight on his right leg. Patient underwent x-ray of the right femur and was found to have a right femur fracture, acute kidney injury. Patient admitted to medical floor due to increased risk of worsening symptoms. Orthopedic surgery team consulted in ED. Assessment: Right femur fracture, status post intramedullary nailing on 11/05: Patient is able to ambulate few steps today. S/p right hip arthroplasty and a right knee arthroplasty Progressive acute blood loss anemia, hemoglobin dropping from 10.9-7.0, received PRBC x1 unit on 11/08. Stable since. 12 beat run of NSVT, asymptomatic on 11/07: Baseline mild sinus tachycardia 90- 100. Could be precipitated by acute blood loss anemia. Potassium 4.5. Troponin normal. No acute EKG changes otherwise. Cardiology consulted. Patient is on carvedilol 12.5 twice daily, changed to metoprolol 50 mg every 8 hours after discussing with the cardiology,Dr Pardo. Limited echocardiogram shows LVEF of 60 to 65%, no pericardial effusion. Received PRBC x1 unit on 11/08, hemoglobin stable since. No further reports of NSVT reported. Cardiology following. Will continue to monitor closely on telemetry. History of CAD/FL follows at [place]: Currently no chest pains, troponin normal, no acute changes on EKG. DICKSON on CKD 3, baseline creatinine 2.0, today 3.2, appears to be prerenal , ordered bladder scan to rule out obstructive element with history of BPH. GERD Osteoarthritis Migraine headache Asthma without acute exacerbation Daily events 11/05/2021. Patient is at baseline with regards to creatinine. No evidence of acute kidney injury. Patient with a creatinine of 2.01 July 2021. Patient with femur x-ray which revealed spiral moderately displaced distal right femoral diaphyseal fracture. Await orthopedics consultation for right femur fracture. Continue supportive care and pain control. 11/06/2021: Postoperatively stable with a soft BP and hemoglobin down to 7.7. Creatinine remains stable at 2.0. Patient reports significant pain in that extremity postoperatively and and states he could barely stand up with PT today. Discharge plans as per orthopedic and shoe parts caser. 11/07/2021: Discharge deferred due to NSVT and DICKSON. 11/08/21: No further episodes of NSVT reported. Received PRBC x1 unit this morning. Hemoglobin stable since. Heart rate 90-100. BP stable. Limited echo showed LVEF of 60 to 65%, no pericardial effusion. Cardiology following. Liliya ient will be discharged home with PT once cleared by cardiology. Ambulating with PT. Will DC Weaver catheter. History Interval history: Patient ordered yesterday but received PRBC x1 unit this morning. No further episodes of NSVT reported. Heart rate 90-100, sinus tachycardia. Now on metoprolol. Cardiology is following. Alert and oriented. Complaining of some pains in the right lower extremity, postoperative. Ambulating as per PT. Hospitalist Physical - Constitutional Vitals: Temp Pulse Resp BP Pulse Ox 98.0 F 80 22 120/62 97 11/08/21 11:12 11/08/21 18:52 11/08/21 11:12 11/08/21 11:12 11/08/21 14:09 General appearance: Present: no acute distress, obese - EENT Eyes: Present: PERRL, EOM intact ENT: clear oral mucosa - Neck Neck: Present: supple - Respiratory Respiratory effort: normal Respiratory: bilateral: CTA - Cardiovascular Rhythm: regular - Extremities Extremity abnormal: other (Edema in right lower extremity present, postoperative compression dressings in place.) - Abdominal General gastrointestinal: soft, non-tender, normal bowel sounds, other (Obese) - Integumentary Integumentary: Absent: rash - Psychiatric Psychiatric: appropriate mood/affect - Neurologic Neurologic: no focal deficits, moves all extremities HEART Score - HEART Score Troponin: Troponin T < 0.010 ng/mL (0.00-0.029) 11/08/21 04:30 Results - Labs CBC & Chem 7: 11/10/21 02:23 11/10/21 02:23 Labs: Laboratory Last Values WBC 9.4 K/mm3 (4.5-11.0) 11/08/21 04:30 RBC 3.48 M/mm3 (3.65-5.03) L 11/08/21 04:30 Hgb 7.6 gm/dl (11.8-15.2) L 11/08/21 18:36 Hct 25.0 % (35.5-45.6) L 11/08/21 18:36 MCV 67 fl (84-94) L 11/08/21 04:30 MCH 20 pg (28-32) L 11/08/21 04:30 MCHC 30 % (32-34) L 11/08/21 04:30 RDW 18.5 % (13.2-15.2) H 11/08/21 04:30 Plt Count 247 K/mm3 (140-440) 11/08/21 04:30 [place] % (Auto) Surgeon Partner 11/08/21 04:30 Add Manual Diff Complete 11/08/21 04:30 Total Counted 100 11/08/21 04:30 Seg Neuts % (Manual) 62.0 % (40.0-70.0) 11/08/21 04:30 Band Neutrophils % 0 % 11/08/21 04:30 Lymphocytes % (Manual) 11.0 % (13.4-35.0) L 11/08/21 04:30 Reactive Lymphs % (Man) 1.0 % 11/08/21 04:30 Monocytes % (Manual) 15.0 % (0.0-7.3) H 11/08/21 04:30 Eosinophils % (Manual) 10.0 % (0.0-4.3) H 11/08/21 04:30 Basophils % (Manual) 1.0 % (0.0-1.8) 11/08/21 04:30 Metamyelocytes % 0 % 11/08/21 04:30 Myelocytes % 0 % 11/08/21 04:30 Promyelocytes % 0 % 11/08/21 04:30 Blast Cells % 0 % 11/08/21 04:30 Nucleated RBC % Not Reportable 11/08/21 04:30 Seg Neutrophils # Man 5.8 K/mm3 (1.8-7.7) 11/08/21 04:30 Band Neutrophils # 0.0 K/mm3 11/08/21 04:30 Lymphocytes # (Manual) 1.0 K/mm3 (1.2-5.4) L 11/08/21 04:30 Abs React Lymphs (Man) 0.1 K/mm3 11/08/21 04:30 Monocytes # (Manual) 1.4 K/mm3 (0.0-0.8) H 11/08/21 04:30 Eosinophils # (Manual) 0.9 K/mm3 (0.0-0.4) H 11/08/21 04:30 Basophils # (Manual) 0.1 K/mm3 (0.0-0.1) 11/08/21 04:30 Metamyelocytes # 0.0 K/mm3 11/08/21 04:30 Myelocytes # 0.0 K/mm3 11/08/21 04:30 Promyelocytes # 0.0 K/mm3 11/08/21 04:30 Blast Cells # 0.0 K/mm3 11/08/21 04:30 WBC Morphology Not Reportable 11/08/21 04:30 Hypersegmented Neuts Not Reportable 11/08/21 04:30 Hyposegmented Neuts Not Reportable 11/08/21 04:30 Hypogranular Neuts Not Reportable 11/08/21 04:30 Smudge Cells Not Reportable 11/08/21 04:30 Toxic Granulation Not Reportable 11/08/21 04:30 Toxic Vacuolation Not Reportable 11/08/21 04:30 Dohle Bodies Not Reportable 11/08/21 04:30 Pelger-Huet Anomaly Not Reportable 11/08/21 04:30 Ricci Rods Not Reportable 11/08/21 04:30 Platelet Estimate Consistent w auto 11/08/21 04:30 Clumped Platelets Not Reportable 11/08/21 04:30 Plt Clumps, EDTA Not Reportable 11/08/21 04:30 Large Platelets Not Reportable 11/08/21 04:30 Giant Platelets Not Reportable 11/08/21 04:30 Platelet Satelliting Not Reportable 11/08/21 04:30 Plt Morphology Comment Not Reportable 11/08/21 04:30 RBC Morphology Not Reportable 11/08/21 04:30 Dimorphic RBCs Not Reportable 11/08/21 04:30 Polychromasia Not Reportable 11/08/21 04:30 Hypochromasia 2+ 11/08/21 04:30 Poikilocytosis 1+ 11/08/21 04:30 Anisocytosis 1+ 11/08/21 04:30 Microcytosis 1+ 11/08/21 04:30 Macrocytosis Not Reportable 11/08/21 04:30 Spherocytes Not Reportable 11/08/21 04:30 Pappenheimer Bodies Not Reportable 11/08/21 04:30 Sickle Cells Not Reportable 11/08/21 04:30 Target Cells Not Reportable 11/08/21 04:30 Tear Drop Cells Not Reportable 11/08/21 04:30 Ovalocytes 1+ 11/08/21 04:30 Helmet Cells Not Reportable 11/08/21 04:30 [place] Bodies Not Reportable 11/08/21 04:30 [place] Rings Not Reportable 11/08/21 04:30 [place] Cells Not Reportable 11/08/21 04:30 Bite Cells Not Reportable 11/08/21 04:30 Crenated Cell Not Reportable 11/08/21 04:30 Elliptocytes Few 11/08/21 04:30 Acanthocytes (Spur) Not Reportable 11/08/21 04:30 Rouleaux Not Reportable 11/08/21 04:30 Hemoglobin C Crystals Not Reportable 11/08/21 04:30 Schistocytes Not Reportable 11/08/21 04:30 Malaria parasites Not Reportable 11/08/21 04:30 [place] Bodies Not Reportable 11/08/21 04:30 Hem Pathologist Commnt No 11/08/21 04:30 PT 14.3 Sec. (12.2-14.9) 11/04/21 17:53 INR 1.00 (0.87-1.13) 11/04/21 17:53 Sodium 139 mmol/L (137-145) 11/08/21 04:30 Potassium 4.3 mmol/L (3.6-5.0) 11/08/21 04:30 Chloride 108.5 mmol/L (98-107) H 11/08/21 04:30 Carbon Dioxide 21 mmol/L (22-30) L 11/08/21 04:30 Anion Gap 14 mmol/L 11/08/21 04:30 BUN 28 mg/dL (9-20) H 11/08/21 04:30 Creatinine 2.6 mg/dL (0.8-1.3) H 11/08/21 04:30 Estimated GFR 30 ml/min 11/08/21 04:30 BUN/Creatinine Ratio 11 % 11/08/21 04:30 Glucose 125 mg/dL (75-100) H 11/08/21 04:30 POC Glucose 131 mg/dL (70-105) H 11/05/21 17:47 Calcium 8.1 mg/dL (8.4-10.2) L 11/08/21 04:30 Magnesium 1.90 mg/dL (1.7-2.3) 11/08/21 04:30 Total Bilirubin 0.20 mg/dL (0.1-1.2) 11/08/21 04:30 AST 42 units/L (5-40) H 11/08/21 04:30 ALT 9 units/L (7-56) 11/08/21 04:30 Alkaline Phosphatase 79 units/L (35-129) 11/08/21 04:30 Total Creatine Kinase 161 units/L (55-170) 11/04/21 17:53 Troponin T < 0.010 ng/mL (0.00-0.029) 11/08/21 04:30 NT-Pro-B Natriuret Pep 152.4 pg/mL (0-900) 11/08/21 04:30 Total Protein 6.4 g/dL (6.3-8.2) 11/08/21 04:30 Albumin 2.8 g/dL (3.9-5) L 11/08/21 04:30 Albumin/Globulin Ratio 0.8 % 11/08/21 04:30 Blood Type B POSITIVE 11/07/21 22:36 Antibody Screen Negative 11/07/21 22:36 Crossmatch See Detail 11/07/21 22:36 Weaver/IV: Voiding Method Condom Catheter Active Medications - Current Medications Current Medications: Generic Name Dose Route Start Last Admin Trade Name Freq PRN Reason Stop Dose Admin Acetaminophen 650 mg 11/04/21 20:03 11/08/21 15:57 Acetaminophen 325 Mg Tab PO 650 mg Q4H PRN Administration Pain MILD(1-3)/Fever >100.5/MCGHEE Albuterol 2.5 mg 11/04/21 20:03 Albuterol 2.5 Mg/3 Ml Nebu IH Q4HRT PRN Shortness Of Breath Amlodipine Besylate 2.5 mg 11/08/21 10:00 11/08/21 09:16 Amlodipine 5 Mg Tab PO 2.5 mg QDAY JOSIE Administration Aspirin 81 mg 11/05/21 10:00 11/08/21 09:16 Aspirin Ec 81 Mg Tab PO 81 mg DAILY JOSIE Administration Atorvastatin Calcium 40 mg 11/04/21 22:00 11/07/21 21:15 Atorvastatin 40 Mg Tab PO 40 mg QHS JOSIE Administration Enoxaparin Sodium 30 mg 11/07/21 11:00 11/08/21 09:17 Enoxaparin 30 Mg/0.3 Ml Inj SUB-Q 30 mg QDAY JOSIE Administration Ferrous Sulfate 325 mg 11/04/21 22:00 11/08/21 09:17 Ferrous Sulfate 325 Mg Tab PO 325 mg BID JOSIE Administration Gabapentin 300 mg 11/07/21 22:00 11/08/21 09:17 Gabapentin 300 Mg Cap PO 300 mg Q12HR JOSIE Administration Hydromorphone HCl 0.5 mg 11/04/21 20:03 11/06/21 13:50 Hydromorphone 1 Mg/1 Ml Inj IV 0.5 mg Q3H PRN Administration Pain , Severe (7-10) Sodium Chloride 1,000 mls @ 75 mls/hr 11/04/21 20:15 11/07/21 18:35 Nacl 0.9% 1000 Ml IV 75 mls/hr DIRECT JOSIE Administration Metoprolol Tartrate 50 mg 11/07/21 18:00 11/08/21 18:52 Metoprolol Tartrate 50 Mg Tab PO 50 mg Q8H JOSIE Administration Ondansetron HCl 4 mg 11/04/21 20:03 Ondansetron 4 Mg/2 Ml Inj IV Q8H PRN Nausea And Vomiting Oxycodone/Acetaminophen 1 tab 11/04/21 20:03 11/07/21 10:19 Oxycodone /Acetaminophen 5-325mg Tab PO 1 tab Q6H PRN Administration Pain, Moderate (4-6) Sodium Chloride 10 ml 11/04/21 22:00 11/08/21 09:17 Sodium Chloride 0.9% 10 Ml Flush Syringe IV 10 ml BID JOSIE Administration Sodium Chloride 10 ml 11/04/21 20:03 Sodium Chloride 0.9% 10 Ml Flush Syringe IV PRN PRN LINE FLUSH Sodium Chloride 10 ml 11/05/21 21:00 Sodium Chloride 0.9% 10 Ml Flush Syringe IV PRN JOSIE Tamsulosin HCl 0.4 mg 11/05/21 10:00 11/08/21 09:17 Tamsulosin 0.4 Mg Cap PO 0.4 mg QDAY JOSIE Administration Tramadol HCl 50 mg 11/04/21 20:02 11/08/21 09:23 Tramadol 50 Mg Tab PO 50 mg Q4HR PRN Administration PAIN
[2021-11-08] MEDS: SODIUM CHLORIDE 0.9% 1000 ML 1,000 ML IV SCH (22:20)
[2021-11-09] MEDS: METOPROLOL TARTRATE 50 MG TAB PO SCH ×2 (03:00→14:26)
[2021-11-09 07:52] LABS: Hematocrit 27.6 % (35.5-45.6); Hemoglobin 8.2 gm/dl (11.8-15.2); Mean Corpuscular HGB Conc 30 % (32-34); Platelet Count 306 K/mm3 (140-440); Red Blood Count 4.02 M/mm3 (3.65-5.03)
[2021-11-09 07:56] LABS: Mean Corpuscular Volume 69 fl (84-94)
[2021-11-09 07:57] LABS: Red Cell Distribution Width 20.7 % (13.2-15.2)
[2021-11-09 08:14] LABS: Calcium 8.1 mg/dL (8.4-10.2)
[2021-11-09] MEDS: ASPIRIN EC 81 MG TAB PO SCH (09:37)
[2021-11-09] MEDS: amLODIPine 5 MG TAB PO SCH (09:37)
[2021-11-09] MEDS: GABAPENTIN 300 MG CAP PO SCH ×2 (09:38→22:20)
[2021-11-09] MEDS: FERROUS SULFATE 325 MG TAB PO SCH ×2 (09:38→22:20)
[2021-11-09] MEDS: TAMSULOSIN 0.4 MG CAP PO SCH (09:38)
[2021-11-09] MEDS: ENOXAPARIN 30 MG/0.3 ML INJ SUB-Q SCH (09:38)
[2021-11-09] MEDS ORDERED: METOPROLOL TARTRATE 50 MG TAB PO SCH (13:00)
--- NOTE | 2021-11-09 13:07 | Progress Note ---
Assessment and Plan Tachyarrhythmia * Cardiology is consulted for short run of NSVT: 12 beats. Review of telemetry shows no further episodes of SVT. * Echocardiogram 11/08/2021: EF 60-65% with normal LV function. No pericardial effusion. GI bleed * GI is following. Patient is post recent transfusion. Right femoral fracture post ORIF secondary to ground-level fall * Ortho surgery is following Patient currently stable cardiac status. Will follow Patient seen in conjunction with Dr. Dona Farmer who agrees with this plan of care - Patient Problems (1) Fall Current Visit: Yes Status: Acute (2) GERD (gastroesophageal reflux disease) Current Visit: Yes Status: Acute Qualifiers: Esophagitis presence: without esophagitis Qualified Code(s): K21.9 - Gastro-esophageal reflux disease without esophagitis (3) Osteoarthritis Current Visit: Yes Status: Acute (4) Right femoral fracture Current Visit: Yes Status: Acute (5) DICKSON (acute kidney injury) Current Visit: No Status: Acute (6) Anemia in chronic kidney disease (CKD) Current Visit: No Status: Acute (7) H/O: CVA (cerebrovascular accident) Current Visit: No Status: Chronic (8) LUÍS (obstructive sleep apnea) Current Visit: No Status: Chronic (9) Obesity (BMI 30.0-34.9) Current Visit: No Status: Chronic Subjective Date of service: 11/09/21 Principal diagnosis: GI Bleed Interval history: Patient resting comfortably in bed no shortness of breath or chest pain overnight Telemetry reviewed shows sinus tach 121 with no events Objective Last Vital Signs Temp 98.5 F 11/09/21 06:49 Pulse 100 H 11/09/21 06:49 Resp 20 11/09/21 06:49 BP 156/93 11/09/21 09:37 Pulse Ox 97 11/09/21 12:04 - Physical Examination General: Appears Well HEENT: Positive: PERRL Neck: Positive: trachea midline Cardiac: Positive: Regular Rhythm, S1/S2 Lungs: Positive: Normal Exam, clear to auscultation, Normal Breath Sounds Neuro: Positive: Grossly Intact Abdomen: Positive: Soft Musculoskeletal: No Fluid Collection, No Pain, Normal Range of Motion Extremities: Present: upper extr. pulses. Absent: edema - Labs and Meds CBC 11/08/21 11/09/21 Range/Units 18:36 07:29 WBC 7.8 (4.5-11.0) K/mm3 RBC 4.02 (3.65-5.03) M/mm3 Hgb 7.6 L 8.2 L (11.8-15.2) gm/dl Hct 25.0 L 27.6 L (35.5-45.6) % Plt Count 306 (140-440) K/mm3 Comprehensive Metabolic Panel 11/09/21 Range/Units 07:29 Sodium 140 (137-145) mmol/L Potassium 4.8 (3.6-5.0) mmol/L Chloride 108.6 H (98-107) mmol/L Carbon Dioxide 20 L (22-30) mmol/L BUN 20 (9-20) mg/dL Creatinine 2.0 H (0.8-1.3) mg/dL Glucose 124 H (75-100) mg/dL Calcium 8.1 L (8.4-10.2) mg/dL - Imaging and Cardiology EKG: image reviewed Echo: report reviewed (Limited echocardiogram 11/08/21: LVEF 60 to 65%. Normal LV systolic performance. No pericardial effusion.) - Telemetry EKG Rhythm: Sinus Tachycardia - EKG Sinus rhythms and dysrhythmias: sinus rhythm Myocardial infarction: inferior [place] (old age inde
[2021-11-09] MEDS: METOPROLOL TARTRATE 100 MG TAB PO SCH ×2 (14:24→22:20)
--- NOTE | 2021-11-09 22:15 | Progress Note ---
Assessment and Plan Assessment and plan: 61 YO Male with CVA with LHP, OA, HTN, FL, GERD, Migraine MCGHEE, HLD, Asthma, BPH, prescribed therapeutic anticoagulation with which he is not compliant and does not know why anticoagulant was prescribed presents to ED for evaluation. Patient states "I tripped and fell down the stairs". Patient states that he has experienced chest discomfort and shortness of breath over the past 2 days with worsening symptoms over the past 1 day. Patient states that he was in his usual state of health and tripped while walking down the stairs and subsequently landed on his head as well as his right knee which broke his fall. Patient states he experienced right leg pain immediately after the fall and was unable t o bear weight on his right leg. Patient underwent x-ray of the right femur and was found to have a right femur fracture, acute kidney injury. Patient admitted to medical floor due to increased risk of worsening symptoms. Orthopedic surgery team consulted in ED. Assessment: Right femur fracture, status post intramedullary nailing on 11/05: Patient is able to ambulate few steps today. S/p right hip arthroplasty and a right knee arthroplasty Progressive acute blood loss anemia, hemoglobin dropping from 10.9-7.0, received PRBC x1 unit on 11/08. Stable since. 12 beat run of NSVT, asymptomatic on 11/07: Baseline mild sinus tachycardia 90- 100. Could be precipitated by acute blood loss anemia. Potassium 4.5. Troponin normal. No acute EKG changes otherwise. Cardiology consulted. Patient is on carvedilol 12.5 twice daily, changed to metoprolol 50 mg every 8 hours after discussing with the cardiology,Dr Pardo. Limited echocardiogram shows LVEF of 60 to 65%, no pericardial effusion. Received PRBC x1 unit on 11/08, hemoglobin stable since. No further reports of NSVT reported. Metoprolol increased 200 mg twice daily on 11/09 for mild sinus tachycardia, improved since. Cardiology following. Will continue to monitor closely on telemetry. Postoperative fever, 101.4 on 11/09: Was afebrile postoperatively. Sepsis work- up initiated. WBC normal. Lactic acid 0.8. UA normal. Chest x-ray, right lower extremity ultrasound rule out DVT, blood cultures and procalcitonin normal. We will hold empiric antibiotic therapy for now. Hemodynamically stable. History of CAD/FL follows at [place]: Currently no chest pains, troponin normal, no acute changes on EKG. DICKSON on CKD 3, baseline creatinine 2.0, today 3.2, appears to be prerenal , ordered bladder scan to rule out obstructive element with history of BPH. GERD Osteoarthritis Migraine headache Asthma without acute exacerbation Daily events 11/05/2021. Patient is at baseline with regards to creatinine. No evidence of acute kidney injury. Patient with a creatinine of 2.01 July 2021. Patient with femur x-ray which revealed spiral moderately displaced distal right femoral diaphyseal fracture. Await orthopedics consultation for right femur fracture. Continue supportive care and pain control. 11/06/2021: Postoperatively stable with a soft BP and hemoglobin down to 7.7. Creatinine remains stable at 2.0. Patient reports significant pain in that extremity postoperatively and and states he could barely stand up with PT today. Discharge plans as per orthopedic and porter sample case. 11/07/2021: Discharge deferred due to NSVT and DICKSON. 11/08/21: No further episodes of NSVT reported. Received PRBC x1 unit this morning. Hemoglobin stable since. Heart rate 90-100. BP stable. Limited echo showed LVEF of 60 to 65%, no pericardial effusion. Cardiology following. Patient will be discharged home with PT once cleared by cardiology. Ambulating with PT. Will DC Weaver catheter. 11/09/2021: Postoperative fever, 101.4 on 11/09: Was afebrile postoperatively. No focal symptoms. Right lower extremity compress legs removed. Right lower extremity swollen. Surgical incision wound is clean. Sepsis work-up initiated. WBC normal. Lactic acid 0.8. UA normal. Chest x-ray, right lower extremity ultrasound rule out DVT, blood cultures and procalcitonin normal. We will hold empiric antibiotic therapy for now. Hemodynamically stable. History Interval history: Patient has spiked a fever today 101.4 in the afternoon. He was afebrile postoperatively. Patient denies new focal symptoms like cough, chest pain, acute GI symptoms dysuria. Weaver catheter was removed yesterday. No further NSVT reported. Heart rate in the 90s, metoprolol increased to 100 mg twice daily. Cardiology following. Hemoglobin stable. Compression postoperative dressings removed by orthopedic today. Hospitalist Physical - Constitutional Vitals: Temp Pulse Resp BP Pulse Ox 101.4 F H 101 H 20 158/58 97 11/09/21 13:40 11/09/21 13:40 11/09/21 13:40 11/09/21 14:24 11/09/21 13:40 General appearance: Present: no acute distress, obese - EENT Eyes: Present: PERRL, EOM intact ENT: clear oral mucosa - Neck Neck: Present: supple - Respiratory Respiratory effort: normal Respiratory: bilateral: CTA - Cardiovascular Rhythm: regular - Extremities Extremity abnormal: other (PostoperativeRight lower extremity noted.) - Abdominal General gastrointestinal: soft, non-tender, normal bowel sounds - Integumentary Integumentary: Absent: rash - Psychiatric Psychiatric: appropriate mood/affect - Neurologic Neurologic: moves all extremities HEART Score - HEART Score Troponin: Troponin T < 0.010 ng/mL (0.00-0.029) 11/08/21 04:30 Results - Labs CBC & Chem 7: 11/10/21 02:23 11/10/21 02:23 Labs: Laboratory Last Values WBC 7.8 K/mm3 (4.5-11.0) 11/09/21 07:29 RBC 4.02 M/mm3 (3.65-5.03) 11/09/21 07:29 Hgb 8.2 gm/dl (11.8-15.2) L 11/09/21 07:29 Hct 27.6 % (35.5-45.6) L 11/09/21 07:29 MCV 69 fl (84-94) L 11/09/21 07:29 MCH 21 pg (28-32) L 11/09/21 07:29 MCHC 30 % (32-34) L 11/09/21 07:29 RDW 20.7 % (13.2-15.2) H 11/09/21 07:29 Plt Count 306 K/mm3 (140-440) 11/09/21 07:29 [place] % (Auto) Web Operations Specialist 11/08/21 04:30 Add Manual Diff Complete 11/08/21 04:30 Total Counted 100 11/08/21 04:30 Seg Neuts % (Manual) 62.0 % (40.0-70.0) 11/08/21 04:30 Band Neutrophils % 0 % 11/08/21 04:30 Lymphocytes % (Manual) 11.0 % (13.4-35.0) L 11/08/21 04:30 Reactive Lymphs % (Man) 1.0 % 11/08/21 04:30 Monocytes % (Manual) 15.0 % (0.0-7.3) H 11/08/21 04:30 Eosinophils % (Manual) 10.0 % (0.0-4.3) H 11/08/21 04:30 Basophils % (Manual) 1.0 % (0.0-1.8) 11/08/21 04:30 Metamyelocytes % 0 % 11/08/21 04:30 Myelocytes % 0 % 11/08/21 04:30 Promyelocytes % 0 % 11/08/21 04:30 Blast Cells % 0 % 11/08/21 04:30 Nucleated RBC % Not Reportable 11/08/21 04:30 Seg Neutrophils # Man 5.8 K/mm3 (1.8-7.7) 11/08/21 04:30 Band Neutrophils # 0.0 K/mm3 11/08/21 04:30 Lymphocytes # (Manual) 1.0 K/mm3 (1.2-5.4) L 11/08/21 04:30 Abs React Lymphs (Man) 0.1 K/mm3 11/08/21 04:30 Monocytes # (Manual) 1.4 K/mm3 (0.0-0.8) H 11/08/21 04:30 Eosinophils # (Manual) 0.9 K/mm3 (0.0-0.4) H 11/08/21 04:30 Basophils # (Manual) 0.1 K/mm3 (0.0-0.1) 11/08/21 04:30 Metamyelocytes # 0.0 K/mm3 11/08/21 04:30 Myelocytes # 0.0 K/mm3 11/08/21 04:30 Promyelocytes # 0.0 K/mm3 11/08/21 04:30 Blast Cells # 0.0 K/mm3 11/08/21 04:30 WBC Morphology Not Reportable 11/08/21 04:30 Hypersegmented Neuts Not Reportable 11/08/21 04:30 Hyposegmented Neuts Not Reportable 11/08/21 04:30 Hypogranular Neuts Not Reportable 11/08/21 04:30 Smudge Cells Not Reportable 11/08/21 04:30 Toxic Granulation Not Reportable 11/08/21 04:30 Toxic Vacuolation Not Reportable 11/08/21 04:30 Dohle Bodies Not Reportable 11/08/21 04:30 Pelger-Huet Anomaly Not Reportable 11/08/21 04:30 Ricci Rods Not Reportable 11/08/21 04:30 Platelet Estimate Consistent w auto 11/08/21 04:30 Clumped Platelets Not Reportable 11/08/21 04:30 Plt Clumps, EDTA Not Reportable 11/08/21 04:30 Large Platelets Not Reportable 11/08/21 04:30 Giant Platelets Not Reportable 11/08/21 04:30 Platelet Satelliting Not Reportable 11/08/21 04:30 Plt Morphology Comment Not Reportable 11/08/21 04:30 RBC Morphology Not Reportable 11/08/21 04:30 Dimorphic RBCs Not Reportable 11/08/21 04:30 Polychromasia Not Reportable 11/08/21 04:30 Hypochromasia 2+ 11/08/21 04:30 Poikilocytosis 1+ 11/08/21 04:30 Anisocytosis 1+ 11/08/21 04:30 Microcytosis 1+ 11/08/21 04:30 Macrocytosis Not Reportable 11/08/21 04:30 Spherocytes Not Reportable 11/08/21 04:30 Pappenheimer Bodies Not Reportable 11/08/21 04:30 Sickle Cells Not Reportable 11/08/21 04:30 Target Cells Not Reportable 11/08/21 04:30 Tear Drop Cells Not Reportable 11/08/21 04:30 Ovalocytes 1+ 11/08/21 04:30 Helmet Cells Not Reportable 11/08/21 04:30 [place] Bodies Not Reportable 11/08/21 04:30 [place] Rings Not Reportable 11/08/21 04:30 [place] Cells Not Reportable 11/08/21 04:30 Bite Cells Not Reportable 11/08/21 04:30 Crenated Cell Not Reportable 11/08/21 04:30 Elliptocytes Few 11/08/21 04:30 Acanthocytes (Spur) Not Reportable 11/08/21 04:30 Rouleaux Not Reportable 11/08/21 04:30 Hemoglobin C Crystals Not Reportable 11/08/21 04:30 Schistocytes Not Reportable 11/08/21 04:30 Malaria parasites Not Reportable 11/08/21 04:30 [place] Bodies Not Reportable 11/08/21 04:30 Hem Pathologist Commnt No 11/08/21 04:30 PT 14.3 Sec. (12.2-14.9) 11/04/21 17:53 INR 1.00 (0.87-1.13) 11/04/21 17:53 Sodium 140 mmol/L (137-145) 11/09/21 07:29 Potassium 4.8 mmol/L (3.6-5.0) 11/09/21 07:29 Chloride 108.6 mmol/L (98-107) H 11/09/21 07:29 Carbon Dioxide 20 mmol/L (22-30) L 11/09/21 07:29 Anion Gap 16 mmol/L 11/09/21 07:29 BUN 20 mg/dL (9-20) 11/09/21 07:29 Creatinine 2.0 mg/dL (0.8-1.3) H 11/09/21 07:29 Estimated GFR 41 ml/min 11/09/21 07:29 BUN/Creatinine Ratio 10 % 11/09/21 07:29 Glucose 124 mg/dL (75-100) H 11/09/21 07:29 POC Glucose 131 mg/dL (70-105) H 11/05/21 17:47 Calcium 8.1 mg/dL (8.4-10.2) L 11/09/21 07:29 Magnesium 1.70 mg/dL (1.7-2.3) 11/09/21 07:29 Total Bilirubin 0.20 mg/dL (0.1-1.2) 11/08/21 04:30 AST 42 units/L (5-40) H 11/08/21 04:30 ALT 9 units/L (7-56) 11/08/21 04:30 Alkaline Phosphatase 79 units/L (35-129) 11/08/21 04:30 Total Creatine Kinase 161 units/L (55-170) 11/04/21 17:53 Troponin T < 0.010 ng/mL (0.00-0.029) 11/08/21 04:30 NT-Pro-B Natriuret Pep 152.4 pg/mL (0-900) 11/08/21 04:30 Total Protein 6.4 g/dL (6.3-8.2) 11/08/21 04:30 Albumin 2.8 g/dL (3.9-5) L 11/08/21 04:30 Albumin/Globulin Ratio 0.8 % 11/08/21 04:30 Blood Type B POSITIVE 11/07/21 22:36 Antibody Screen Negative 11/07/21 22:36 Crossmatch See Detail 11/07/21 22:36 Weaver/IV: Voiding Method Urinal Active Medications - Current Medications Current Medications: Generic Name Dose Route Start Last Admin Trade Name Freq PRN Reason Stop Dose Admin Acetaminophen 650 mg 11/04/21 20:03 11/08/21 22:19 Acetaminophen 325 Mg Tab PO 650 mg Q4H PRN Administration Pain MILD(1-3)/Fever >100.5/MCGHEE Albuterol 2.5 mg 11/04/21 20:03 Albuterol 2.5 Mg/3 Ml Nebu IH Q4HRT PRN Shortness Of Breath Amlodipine Besylate 2.5 mg 11/08/21 10:00 11/09/21 09:37 Amlodipine 5 Mg Tab PO 2.5 mg QDAY JOSIE Administration Aspirin 81 mg 11/05/21 10:00 11/09/21 09:37 Aspirin Ec 81 Mg Tab PO 81 mg DAILY JOSIE Administration Atorvastatin Calcium 40 mg 11/04/21 22:00 11/08/21 22:18 Atorvastatin 40 Mg Tab PO 40 mg QHS JOSIE Administration Enoxaparin Sodium 30 mg 11/07/21 11:00 11/09/21 09:38 Enoxaparin 30 Mg/0.3 Ml Inj SUB-Q 30 mg QDAY JOSIE Administration Ferrous Sulfate 325 mg 11/04/21 22:00 11/09/21 09:38 Ferrous Sulfate 325 Mg Tab PO 325 mg BID JOSIE Administration Gabapentin 300 mg 11/07/21 22:00 11/09/21 09:38 Gabapentin 300 Mg Cap PO 300 mg Q12HR JOSIE Administration Hydromorphone HCl 0.5 mg 11/04/21 20:03 11/06/21 13:50 Hydromorphone 1 Mg/1 Ml Inj IV 0.5 mg Q3H PRN Administration Pain , Severe (7-10) Metoprolol Tartrate 100 mg 11/09/21 13:15 11/09/21 14:24 Metoprolol Tartrate 100 Mg Tab PO 100 mg BID JOSIE Administration Ondansetron HCl 4 mg 11/04/21 20:03 Ondansetron 4 Mg/2 Ml Inj IV Q8H PRN Nausea And Vomiting Oxycodone/Acetaminophen 1 tab 11/04/21 20:03 11/07/21 10:19 Oxycodone /Acetaminophen 5-325mg Tab PO 1 tab Q6H PRN Administration Pain, Moderate (4-6) Sodium Chloride 10 ml 11/04/21 22:00 11/09/21 14:25 Sodium Chloride 0.9% 10 Ml Flush Syringe IV 10 ml BID JOSIE Administration Sodium Chloride 10 ml 11/04/21 20:03 Sodium Chloride 0.9% 10 Ml Flush Syringe IV PRN PRN LINE FLUSH Sodium Chloride 10 ml 11/05/21 21:00 Sodium Chloride 0.9% 10 Ml Flush Syringe IV PRN JOSIE Tamsulosin HCl 0.4 mg 11/05/21 10:00 11/09/21 09:38 Tamsulosin 0.4 Mg Cap PO 0.4 mg QDAY JOSIE Administration Tramadol HCl 50 mg 11/04/21 20:02 11/08/21 09:23 Tramadol 50 Mg Tab PO 50 mg Q4HR PRN Administration PAIN Nutrition/Malnutrition Assess - Dietary Evaluation Nutrition/Malnutrition Findings: Nutrition Notes Start: 11/09/21 11 :25 Freq: Status: Active Protocol: Document 11/09/21 11:25 [facility] (Rec: 11/09/21 11:29 [facility] [id number]) Nutrition Notes Need for Assessment generated from: LOS Initial or Follow up Brief Note Current Diagnosis Acute Kidney Injury,Coronary Artery Disease Other Pertinent Diagnosis (R) femur fx s/p repair, s/p ( R) hip and knee arthroplasty, anemia, asthma Current Diet Regular Height 5 ft 9 in Weight 82.3 kg [place] Body Weight (kg) 72.72 BMI 26.8 Weight Status Overweight Subjective/Other Information Pt screened for LOS. He has consumed 67% of three recorded meals. Percent of energy/protein needs met: 73% energy 90% pro Burn Absent Trauma Absent Current % PO Fair (50-74%) Minimum of two criteria No Is patient on ventilator? No Is Patient Ambulatory and/or Out of Bed Yes REE-([place]-St. Jeor-ambulatory/OOB) [ 2097.394 [id number]] Calculation Used for Recommendations [facility] Additional Notes Pro needs: 0.8-1.2g/k-99g /day Fluid needs 1ml/kcal Nutrition Intervention Follow-Up By: 11/16/21 Additional Comments F/U: intakes, wt, need for full assessment
[2021-11-09] MEDS: traMADol 50 MG TAB PO PRN (22:19)
[2021-11-10 03:21] LABS: Albumin 2.7 g/dL (3.9-5); Calcium 8.1 mg/dL (8.4-10.2)
[2021-11-10 03:35] LABS: Hematocrit 24.7 % (35.5-45.6); Hemoglobin 7.7 gm/dl (11.8-15.2); Mean Corpuscular HGB Conc 31 % (32-34); Platelet Count 294 K/mm3 (140-440); Red Blood Count 3.58 M/mm3 (3.65-5.03)
[2021-11-10 03:45] LABS: Mean Corpuscular Volume 69 fl (84-94); Red Cell Distribution Width 20.4 % (13.2-15.2)
[2021-11-10 05:40] LABS: Total Cells Counted 100
[2021-11-10 05:41] LABS: Anisocytosis 1+; Hypochromasia 1+; Platelet Estimate Consistent w Auto
[2021-11-10 07:15] LABS: Bilirubin,Urine NEG (Negative); Blood,Urine NEG (Negative); Color,Urine Straw (Yellow); RBC,Urine < 1.0 /HPF (0.0-6.0); Urobilinogen,Urine < 2.0 mg/dL (<2.0)
--- NOTE | 2021-11-10 08:56 | XRay Report ---
CHEST 1 VIEW 11/10/2021 8:38 AM INDICATION / CLINICAL INFORMATION: Postoperative fever. COMPARISON: 02/08/2021 FINDINGS: SUPPORT DEVICES: None. HEART / MEDIASTINUM: No significant abnormality. LUNGS / PLEURA: No focal airspace disease. Stable calcified granulomas in the right upper lobe. No pn eumothorax. ADDITIONAL FINDINGS: Stable chronic healed right posterior rib fractures. IMPRESSION: 1. No acute findings. Signer Name: Gurmeet Cabrera MD Signed: 11/10/2021 8:51 AM Workstation Name: [id number]
[2021-11-10] MEDS: ASPIRIN EC 81 MG TAB PO SCH (09:58)
[2021-11-10] MEDS: GABAPENTIN 300 MG CAP PO SCH ×2 (09:58→21:22)
[2021-11-10] MEDS: FERROUS SULFATE 325 MG TAB PO SCH ×2 (09:58→21:22)
[2021-11-10] MEDS: METOPROLOL TARTRATE 100 MG TAB PO SCH ×2 (09:58→21:23)
[2021-11-10] MEDS: TAMSULOSIN 0.4 MG CAP PO SCH (09:59)
[2021-11-10] MEDS: amLODIPine 5 MG TAB PO SCH (09:59)
[2021-11-10] MEDS: ENOXAPARIN 40 MG/0.4 ML INJ SUB-Q SCH (10:02)
[2021-11-10] MEDS: traMADol 50 MG TAB PO PRN ×2 (10:24→21:24)
[2021-11-10] MEDS: oxyCODONE /ACETAMINOPHEN 5-325MG TAB PO PRN (12:43)
--- NOTE | 2021-11-10 13:45 | Progress Note ---
Assessment and Plan Stable cardiac status. - Patient Problems (1) Right femoral fracture Current Visit: Yes Status: Acute (2) NSVT (nonsustained ventricular tachycardia) Current Visit: Yes Status: Acute (3) Acute kidney injury superimposed on chronic kidney disease Current Visit: Yes Status: Acute (4) Anemia Current Visit: Yes Status: Acute Qualifiers: Anemia type: other cause (5) HTN (hypertension) Current Visit: Yes Status: Chronic Qualifiers: Hypertension type: primary hypertension Qualified Code(s): I10 - Essential (primary) hypertension (6) H/O: CVA (cerebrovascular accident) Current Visit: No Status: Resolved (7) Asthma Current Visit: Yes Status: Chronic Qualifiers: Asthma severity: mild Asthma persistence: intermittent Subjective Date of service: 11/10/21 Principal diagnosis: R hip Fx, s/p IM nail, NSVT, Anemia, Acute on CKD Interval history: C/o of RLE pain. In NSR. Objective Vital Signs Temp Pulse Resp BP Pulse Ox 11/10/21 12:25 98.2 F 72 22 132/61 99 11/10/21 09:55 144/77 11/10/21 08:36 95 11/10/21 05:54 99.5 F 74 20 148/86 96 11/10/21 00:00 20 97 11/09/21 22:59 98.5 F 74 20 137/74 99 11/09/21 18:40 97.9 F 76 20 126/71 98 11/09/21 14:24 158/58 - Physical Examination General: Appears Well, No Apparent Distress HEENT: Positive: Normocephaly, Mucus Membranes Moist Neck: Positive: neck supple, trachea midline, Carotid Upstroke (full) Cardiac: Positive: Reg Rate and Rhythm, S1/S2 Lungs: Positive: clear to auscultation Neuro: Positive: Grossly Intact Abdomen: Positive: Soft, Active Bowel Sounds. Negative: Tender Skin: Positive: Clear. Negative: Rash Musculoskeletal: No Fluid Collection Extremities: Absent: edema - Labs and Meds Cardiac Enzymes 11/10/21 Range/Units 02:23 AST 31 (5-40) units/L CBC 11/10/21 Range/Units 02:23 WBC 8.0 (4.5-11.0) K/mm3 RBC 3.58 L (3.65-5.03) M/mm3 Hgb 7.7 L (11.8-15.2) gm/dl Hct 24.7 L (35.5-45.6) % Plt Count 294 (140-440) K/mm3 Comprehensive Metabolic Panel 11/10/21 Range/Units 02:23 Sodium 138 (137-145) mmol/L Potassium 4.6 (3.6-5.0) mmol/L Chloride 106.2 (98-107) mmol/L Carbon Dioxide 20 L (22-30) mmol/L BUN 21 H (9-20) mg/dL Creatinine 1.9 H (0.8-1.3) mg/dL Glucose 138 H (75-100) mg/dL Calcium 8.1 L (8.4-10.2) mg/dL AST 31 (5-40) units/L ALT 12 (7-56) units/L Alkaline Phosphatase 73 (35-129) units/L Total Protein 6.2 L (6.3-8.2) g/dL Albumin 2.7 L (3.9-5) g/dL - Imaging and Cardiology Echo: report reviewed (Limited echocardiogram 11/08/21: LVEF 60 to 65%. Normal LV systolic performance. No pericardial effusion.) - Telemetry EKG Rhythm: Sinus Rhythm - EKG Sinus rhythms and dysrhythmias: sinus rhythm
--- NOTE | 2021-11-10 20:26 | Progress Note ---
Hospitalist Physical - Constitutional Vitals: Temp Pulse Resp BP Pulse Ox 98.6 F 74 22 122/62 97 11/10/21 17:31 11/10/21 17:31 11/10/21 17:31 11/10/21 17:31 11/10/21 17:31 General appearance: Present: no acute distress, obese HEART Score - HEART Score Troponin: Troponin T < 0.010 ng/mL (0.00-0.029) 11/08/21 04:30 Results - Labs CBC & Chem 7: 11/10/21 02:23 11/10/21 02:23 Labs: Laboratory Last Values WBC 8.0 K/mm3 (4.5-11.0) 11/10/21 02: RBC 3.58 M/mm3 (3.65-5.03) L 11/10/21 02: Hgb 7.7 gm/dl (11.8-15.2) L 11/10/21 02: Hct 24.7 % (35.5-45.6) L 11/10/21 02: MCV 69 fl (84-94) L 11/10/21 02:23 MCH 22 pg (28-32) L 11/10/21 02: MCHC 31 % (32-34) L 11/10/21 02: RDW 20.4 % (13.2-15.2) H 11/10/21 02:23 Plt Count 294 K/mm3 (140-440) 11/10/21 02:23 [place] % (Auto) English Faculty Member 11/10/21 02:23 Eos % (Auto) English Faculty Member 11/10/21 02:23 Add Manual Diff Complete 11/10/21 02:23 Total Counted 100 11/10/21 02:23 Seg Neuts % (Manual) 46.0 % (40.0-70.0) 11/10/21 02:23 Band Neutrophils % 0 % 11/10/21 02:23 Lymphocytes % (Manual) 8.0 % (13.4-35.0) L 11/10/21 02:23 Reactive Lymphs % (Man) 0 % 11/10/21 02:23 Monocytes % (Manual) 13.0 % (0.0-7.3) H 11/10/21 02:23 Eosinophils % (Manual) 32.0 % (0.0-4.3) H 11/10/21 02:23 Basophils % (Manual) 1.0 % (0.0-1.8) 11/10/21 02:23 Metamyelocytes % 0 % 11/10/21 02:23 Myelocytes % 0 % 11/10/21 02:23 Promyelocytes % 0 % 11/10/21 02:23 Blast Cells % 0 % 11/10/21 02:23 Nucleated RBC % Not Reportable 11/10/21 02:23 Seg Neutrophils # Man 3.7 K/mm3 (1.8-7.7) 11/10/21 02:23 Band Neutrophils # 0.0 K/mm3 11/10/21 02:23 Lymphocytes # (Manual) 0.6 K/mm3 (1.2-5.4) L 11/10/21 02:23 Abs React Lymphs (Man) 0.0 K/mm3 11/10/21 02:23 Monocytes # (Manual) 1.0 K/mm3 (0.0-0.8) H 11/10/21 02:23 Eosinophils # (Manual) 2.6 K/mm3 (0.0-0.4) H 11/10/21 02:23 Basophils # (Manual) 0.1 K/mm3 (0.0-0.1) 11/10/21 02:23 Metamyelocytes # 0.0 K/mm3 11/10/21 02:23 Myelocytes # 0.0 K/mm3 11/10/21 02:23 Promyelocytes # 0.0 K/mm3 11/10/21 02:23 Blast Cells # 0.0 K/mm3 11/10/21 02:23 WBC Morphology Not Reportable 11/10/21 02:23 Hypersegmented Neuts Not Reportable 11/10/21 02:23 Hyposegmented Neuts Not Reportable 11/10/21 02:23 Hypogranular Neuts Not Reportable 11/10/21 02:23 Smudge Cells Not Reportable 11/10/21 02:23 Toxic Granulation Not Reportable 11/10/21 02:23 Toxic Vacuolation Not Reportable 11/10/21 02:23 Dohle Bodies Not Reportable 11/10/21 02:23 Pelger-Huet Anomaly Not Reportable 11/10/21 02:23 Ricci Rods Not Reportable 11/10/21 02:23 Platelet Estimate Consistent w auto 11/10/21 02:23 Clumped Platelets Not Reportable 11/10/21 02:23 Plt Clumps, EDTA Not Reportable 11/10/21 02:23 Large Platelets Not Reportable 11/10/21 02:23 Giant Platelets Not Reportable 11/10/21 02:23 Platelet Satelliting Not Reportable 11/10/21 02:23 Plt Morphology Comment Not Reportable 11/10/21 02:23 RBC Morphology Not Reportable 11/10/21 02:23 Dimorphic RBCs Not Reportable 11/10/21 02:23 Polychromasia Not Reportable 11/10/21 02:23 Hypochromasia 1+ 11/10/21 02:23 Poikilocytosis Not Reportable 11/10/21 02:23 Anisocytosis 1+ 11/10/21 02:23 Microcytosis 1+ 11/10/21 02:23 Macrocytosis Not Reportable 11/10/21 02:23 Spherocytes Not Reportable 11/10/21 02:23 Pappenheimer Bodies Not Reportable 11/10/21 02:23 Sickle Cells Not Reportable 11/10/21 02:23 Target Cells Not Reportable 11/10/21 02:23 Tear Drop Cells Not Reportable 11/10/21 02:23 Ovalocytes Not Reportable 11/10/21 02:23 Helmet Cells Not Reportable 11/10/21 02:23 [place] Bodies Not Reportable 11/10/21 02:23 [place] Rings Not Reportable 11/10/21 02:23 [place] Cells Not Reportable 11/10/21 02:23 Bite Cells Not Reportable 11/10/21 02:23 Crenated Cell Not Reportable 11/10/21 02:23 Elliptocytes Not Reportable 11/10/21 02:23 Acanthocytes (Spur) Not Reportable 11/10/21 02:23 Rouleaux Not Reportable 11/10/21 02:23 Hemoglobin C Crystals Not Reportable 11/10/21 02:23 Schistocytes Not Reportable 11/10/21 02:23 Malaria parasites Not Reportable 11/10/21 02:23 [place] Bodies Not Reportable 11/10/21 02:23 Hem Pathologist Commnt No 11/10/21 02:23 PT 14.3 Sec. (12.2-14.9) 11/04/21 17:53 INR 1.00 (0.87-1.13) 11/04/21 17:53 Sodium 138 mmol/L (137-145) 11/10/21 02:23 Potassium 4.6 mmol/L (3.6-5.0) 11/10/21 02:23 Chloride 106.2 mmol/L (98-107) 11/10/21 02:23 Carbon Dioxide 20 mmol/L (22-30) L 11/10/21 02:23 Anion Gap 16 mmol/L 11/10/21 02:23 BUN 21 mg/dL (9-20) H 11/10/21 02:23 Creatinine 1.9 mg/dL (0.8-1.3) H 11/10/21 02:23 Estimated GFR 44 ml/min 11/10/21 02:23 BUN/Creatinine Ratio 11 % 11/10/21 02:23 Glucose 138 mg/dL (75-100) H 11/10/21 02:23 POC Glucose 131 mg/dL (70-105) H 11/05/21 17:47 Lactic Acid 0.80 mmol/L (0.7-2.0) 11/09/21 23:35 Calcium 8.1 mg/dL (8.4-10.2) L 11/10/21 02:23 Magnesium 1.70 mg/dL (1.7-2.3) 11/09/21 07:29 Total Bilirubin 0.30 mg/dL (0.1-1.2) 11/10/21 02:23 AST 31 units/L (5-40) 11/10/21 02:23 ALT 12 units/L (7-56) 11/10/21 02:23 Alkaline Phosphatase 73 units/L (35-129) 11/10/21 02:23 Total Creatine Kinase 161 units/L (55-170) 11/04/21 17:53 Troponin T < 0.010 ng/mL (0.00-0.029) 11/08/21 04:30 NT-Pro-B Natriuret Pep 152.4 pg/mL (0-900) 11/08/21 04:30 Total Protein 6.2 g/dL (6.3-8.2) L 11/10/21 02:23 Albumin 2.7 g/dL (3.9-5) L 11/10/21 02:23 Albumin/Globulin Ratio 0.8 % 11/10/21 02:23 Urine Color Straw (Yellow) 11/09/21 06:35 Urine Turbidity Clear (Clear) 11/09/21 06:35 Urine pH 6.0 (5.0-7.0) 11/09/21 06:35 Ur Specific [place] 1.010 (1.003-1.030) 11/09/21 06:35 Urine Protein 30 mg/dl mg/dL (Negative) 11/09/21 06:35 Urine Glucose (UA) Neg mg/dL (Negative) 11/09/21 06:35 Urine Ketones Neg mg/dL (Negative) 11/09/21 06:35 Urine Blood Neg (Negative) 11/09/21 06:35 Urine Nitrite Neg (Negative) 11/09/21 06:35 Urine Bilirubin Neg (Negative) 11/09/21 06:35 Urine Urobilinogen < 2.0 mg/dL (<2.0) 11/09/21 06:35 Ur Leukocyte Esterase Neg (Negative) 11/09/21 06:35 Urine WBC (Auto) 1.0 /HPF (0.0-6.0) 11/09/21 06:35 Urine RBC (Auto) < 1.0 /HPF (0.0-6.0) 11/09/21 06:35 Blood Type B POSITIVE 11/07/21 22:36 Antibody Screen Negative 11/07/21 22:36 Crossmatch See Detail 11/07/21 22:36 Microbiology: Microbiology 11/10/21 02:23 Peripheral/Venous Blood Culture - Preliminary Culture in Progress 11/09/21 23:35 Peripheral/Venous Blood Culture - Preliminary Culture in Progress Weaver/IV: Voiding Method Urinal Active Medications - Current Medications Current Medications: Generic Name Dose Route Start Last Admin Trade Name Freq PRN Reason Stop Dose Admin Acetaminophen 650 mg 11/04/21 20:03 11/08/21 22:19 Acetaminophen 325 Mg Tab PO 650 mg Q4H PRN Administration Pain MILD(1-3)/Fever >100.5/MCGHEE Albuterol 2.5 mg 11/04/21 20:03 Albuterol 2.5 Mg/3 Ml Nebu IH Q4HRT PRN Shortness Of Breath Amlodipine Besylate 2.5 mg 11/08/21 10:00 11/10/21 09:59 Amlodipine 5 Mg Tab PO 2.5 mg QDAY JOSIE Administration Aspirin 81 mg 11/05/21 10:00 11/10/21 09:58 Aspirin Ec 81 Mg Tab PO 81 mg DAILY JOSIE Administration Atorvastatin Calcium 40 mg 11/04/21 22:00 11/09/21 22:20 Atorvastatin 40 Mg Tab PO 40 mg QHS JOSIE Administration Enoxaparin Sodium 40 mg 11/10/21 10:00 11/10/21 10:02 Enoxaparin 40 Mg/0.4 Ml Inj SUB-Q 40 mg QDAY@1000 JOSIE Administration Ferrous Sulfate 325 mg 11/04/21 22:00 11/10/21 09:58 Ferrous Sulfate 325 Mg Tab PO 325 mg BID JOSIE Administration Gabapentin 300 mg 11/07/21 22:00 11/10/21 09:58 Gabapentin 300 Mg Cap PO 300 mg Q12HR JOSIE Administration Metoprolol Tartrate 100 mg 11/09/21 13:15 11/10/21 09:58 Metoprolol Tartrate 100 Mg Tab PO 100 mg BID JOSIE Administration Ondansetron HCl 4 mg 11/04/21 20:03 Ondansetron 4 Mg/2 Ml Inj IV Q8H PRN Nausea And Vomiting Oxycodone/Acetaminophen 1 tab 11/04/21 20:03 11/10/21 12:43 Oxycodone /Acetaminophen 5-325mg Tab PO 1 tab Q6H PRN Administration Pain, Moderate (4-6) Sodium Chloride 10 ml 11/04/21 22:00 11/10/21 10:03 Sodium Chloride 0.9% 10 Ml Flush Syringe IV 10 ml BID JOSIE Administration Sodium Chloride 10 ml 11/04/21 20:03 Sodium Chloride 0.9% 10 Ml Flush Syringe IV PRN PRN LINE FLUSH Sodium Chloride 10 ml 11/05/21 21:00 Sodium Chloride 0.9% 10 Ml Flush Syringe IV PRN JOSIE Tamsulosin HCl 0.4 mg 11/05/21 10:00 11/10/21 09:59 Tamsulosin 0.4 Mg Cap PO 0.4 mg QDAY JOSIE Administration Tramadol HCl 50 mg 11/04/21 20:02 11/10/21 10:24 Tramadol 50 Mg Tab PO 50 mg Q4HR PRN Administration PAIN Nutrition/Malnutrition Assess - Dietary Evaluation Nutrition/Malnutrition Findings: Nutrition Notes Start: 11/09/21 11:25 Freq: Status: Active Protocol: Document 11/09/21 11:25 KRISTINE (Rec: 11/09/21 11:29 KRISTINE [email or web address]) Nutrition Notes Need for Assessment generated from: LOS Initial or Follow up Brief Note Current Diagnosis Acute Kidney Injury,Coronary Artery Disease Other Pertinent Diagnosis (R) femur fx s/p repair, s/p ( R) hip and knee arthroplasty, anemia, asthma Current Diet Regular Height 5 ft 9 in Weight 82.3 kg [place] Body Weight (kg) 72.72 BMI 26.8 Weight Status Overweight Subjective/Other Information Pt screened for LOS. He has consumed 67% of three recorded meals. Percent of energy/protein needs met: 73% energy 90% pro Burn Absent Trauma Absent Current % PO Fair (50-74%) Minimum of two criteria No Is patient on ventilator? No Is Patient Ambulatory and/or Out of Bed Yes REE-([place]-ambulatory/OOB) [ 2097.394 [id number]] Calculation Used for Recommendations [place] Additional Notes Pro needs: 0.8-1.2g/k-99g /day Fluid needs 1ml/kcal Nutrition Intervention Follow-Up By: 11/16/21 Additional Comments F/U: intakes, wt, need for full assessment
[2021-11-11] MEDS: ENOXAPARIN 40 MG/0.4 ML INJ SUB-Q SCH (10:32)
[2021-11-11] MEDS: amLODIPine 5 MG TAB PO SCH (10:32)
[2021-11-11] MEDS: FERROUS SULFATE 325 MG TAB PO SCH (10:32)
[2021-11-11] MEDS: TAMSULOSIN 0.4 MG CAP PO SCH (10:33)
[2021-11-11] MEDS: GABAPENTIN 300 MG CAP PO SCH (10:33)
[2021-11-11] MEDS: ASPIRIN EC 81 MG TAB PO SCH (10:33)
[2021-11-11] MEDS: METOPROLOL TARTRATE 100 MG TAB PO SCH (10:33)
[2021-11-11 10:34] VITALS: BP 129/76
--- NOTE | 2021-11-11 12:23 | Progress Note ---
Assessment and Plan Stable cardiac status. - Patient Problems (1) Right femoral fracture Current Visit: Yes Status: Acute (2) NSVT (nonsustained ventricular tachycardia) Current Visit: Yes Status: Acute (3) Acute kidney injury superimposed on chronic kidney disease Current Visit: Yes Status: Acute (4) Anemia Current Visit: Yes Status: Acute Qualifiers: Anemia type: other cause (5) HTN (hypertension) Current Visit: Yes Status: Chronic Qualifiers: Hypertension type: primary hypertension Qualified Code(s): I10 - Essential (primary) hypertension (6) H/O: CVA (cerebrovascular accident) Current Visit: No Status: Resolved (7) Asthma Current Visit: Yes Status: Chronic Qualifiers: Asthma severity: mild Asthma persistence: intermittent Subjective Date of service: 11/11/21 Principal diagnosis: R hip Fx, s/p IM nail, NSVT, Anemia, Acute on CKD Interval history: Just like yesterday, he complains of generalized pain. Objective Vital Signs Temp Pulse Resp BP Pulse Ox 11/11/21 10:33 71 129/76 11/11/21 10:32 71 129/76 11/11/21 00:00 95 11/10/21 21:24 16 11/10/21 21:23 70 133/80 11/10/21 20:48 98.5 F 70 18 133/80 97 11/10/21 17:31 98.6 F 74 22 122/62 97 11/10/21 12:25 98.2 F 72 22 132/61 99 - Physical Examination General: No Apparent Distress HEENT: Positive: EOMI, Normocephaly, Mucus Membranes Moist Neck: Positive: neck supple, trachea midline, Carotid Upstroke (full) Cardiac: Positive: Reg Rate and Rhythm, S1/S2 Lungs: Positive: clear to auscultation Neuro: Positive: Grossly Intact Abdomen: Positive: Soft, Active Bowel Sounds. Negative: Tender Skin: Positive: Clear. Negative: Rash Musculoskeletal: No Fluid Collection Extremities: Absent: edema - Imaging and Cardiology Echo: report reviewed (Limited echocardiogram 11/08/21: LVEF 60 to 65%. Normal LV systolic performance. No pericardial effusion.) - Telemetry EKG Rhythm: Sinus Rhythm
--- NOTE | 2021-11-11 18:05 | Discharge Summary ---
Providers - Providers Date of Admission: 11/04/21 20:03 Attending physician: YOVANI WALKER MD 11/04/21 17:09 Consult to Physician [CONS] Urgent Comment: Consulting Provider: APARNA NIX Physician Instructions: Reason For Exam: right femur fx 11/05/21 20:36 Consult to Case Management [CONS] Routine Services Needed at Discharge: Other Notified:: yes Additional Physician Instructions: Assess Discharge needs. Physical Therapy Evaluation and Treat [CONS] Routine Comment: Reason For Exam: Eval and Treat Weight bearing status?: Partial wt bearing Assistive devices?: Yes If so list: Walker 11/08/21 10:26 Consult to Physician [CONS] Routine Comment: Consulting Provider: JUAN LENNON Physician Instructions: Reason For Exam: nsvt Primary care physician: [facility] MD LAUREN Hospitalization Condition: Stable Disposition: HOME HEALTH CARE SERVICE Exam - Constitutional Vitals: Temp Pulse Resp BP Pulse Ox 98.5 F 71 16 129/76 95 11/10/21 20:48 11/11/21 10:33 11/10/21 21:24 11/11/21 10:33 11/11/21 12:00 General appearance: Present: no acute distress - EENT Eyes: Present: PERRL, EOM intact ENT: hearing intact, clear oral mucosa - Neck Neck: Present: supple - Respiratory Respiratory effort: normal Respiratory: bilateral: CTA - Cardiovascular Rhythm: regular - Extremities Extremity abnormal: edema (Postoperative edema in right lower extremity im proving, incision clean) - Abdominal General gastrointestinal: Present: soft, non-tender, normal bowel sounds - Integumentary Integumentary: Absent: rash - Neurologic Neurologic: moves all extremities, other (Alert and oriented, normal speech) Plan Activity: advance as tolerated Weight Bearing Status: Weight Bear as Tolerated Diet: low fat, low salt, diabetic Wound: per your surgeon's advice Additional Instructions: See your orthopedic, Dr. Nix in 10 days for follow- up. See your kst operator in 2 weeks for follow-up. Do not take your Metformin since your kidney function is weak. Continue to monitor your blood sugar at home. See your family doctor in 1 week for follow-up. You are provided with a home PT and OT. Follow up with: SEGUNDO GARCIA MD [Primary Care Provider] - 3-5 Days APARNA NIX MD [Staff Physician] - 10 Days
== END 2021-11-11 23:59 | disposition home health service (06) | DRG 481 ==
LOC: ED 14:21 → UNDOADMIN 20:03 → 3A 20:03 → ED 22:16 → UNDODISIN 11-11 17:25
PROVIDERS: ADMIT Internal Medicine; ATTEND Internal Medicine
PROC: 0QS636Z Reposition Right Upper Femur with Intramedullary Internal Fixation Device, Percutaneous Approach (ICD-10-PCS; principal; 2021-11-05)
PROC: 30233N1 Transfusion of Nonautologous Red Blood Cells into Peripheral Vein, Percutaneous Approach (ICD-10-PCS; 2021-11-08)
DX: S72.91XA Unspecified fracture of right femur, initial encounter for closed fracture (principal); N17.9 Acute kidney failure, unspecified; D62 Acute posthemorrhagic anemia; I47.2 Ventricular tachycardia; S09.90XA Unspecified injury of head, initial encounter; J45.909 Unspecified asthma, uncomplicated; W19.XXXA Unspecified fall, initial encounter; Z20.822 Contact with and (suspected) exposure to COVID-19; K21.9 Gastro-esophageal reflux disease without esophagitis; N18.30 Chronic kidney disease, stage 3 unspecified; I12.9 Hypertensive chronic kidney disease with stage 1 through stage 4 chronic kidney disease, or unspecified chronic kidney disease; G43.909 Migraine, unspecified, not intractable, without status migrainosus; E78.5 Hyperlipidemia, unspecified; Z82.49 Family history of ischemic heart disease and other diseases of the circulatory system; Z90.49 Acquired absence of other specified parts of digestive tract; Y93.89 Activity, other specified; Y92.89 Other specified places as the place of occurrence of the external cause; Y99.8 Other external cause status; Z86.73 Personal history of transient ischemic attack (TIA), and cerebral infarction without residual deficits; S72.401A Unspecified fracture of lower end of right femur, initial encounter for closed fracture; D63.1 Anemia in chronic kidney disease; G47.33 Obstructive sleep apnea (adult) (pediatric); N40.0 Benign prostatic hyperplasia without lower urinary tract symptoms
CPT/HCPCS: 36415; 36430; 70450; 71045; 72170; 80048; 80053; 81001; 82140; 82550; 82962; 83735; 83880; 84145; 84484; 85007; 85014; 85018; 85025; 85027; 85610; 86850; 86900; 86901; 86920; 87040; 87076; 87086; 87186; 93005; 93010; 93308; 93321; 93325; 94760; 96361; 96372; 96374; 96376; 99285; G0378; J3490; J7120; Q0162; C1713; C1769; J0690; J1170; J1650; J2370; J2405; J2704; J7030; J7040; P9016